=== PATIENT | male | born 1940 | race Hispanic/Latino ===

== ENCOUNTER 2018-03-22 09:44 | Inpatient (IN) | payer BC, MEDICARE ==
[2018-03-22 09:44] VITALS: BMI 36.9
[2018-03-22] MEDS ORDERED: Albuterol-Ipratrop 3 mg / 0.5 (3 ml) UD INH STA (10:18)
[2018-03-22] MEDS ORDERED: Albuterol-Ipratrop 3 mg / 0.5 (3 ml) UD IH STA ×2 (10:18→10:19)
--- NOTE | 2018-03-22 10:29 | ED PDOC ---
HPI: SOB/CHF/COPD Time Seen by Provider: 03/22/18 10:09 Chief Complaint (Nursing): Shortness Of Breath Chief Complaint (Provider): Dyspnea History Per: Patient History/Exam Limitations: no limitations Onset/Duration Of Symptoms: Days (3) Additional Complaint(s): Pt. with dyspnea, cough, nasal congestion, runny nose. No abd pain, leg pain. No fever. Seen by Dr. Crain and sent to the ER. No chest pain. Past Medical History Reviewed: Historical Data, Nursing Documentation, Vital Signs Vital Signs: Last Vital Signs Temp 98.9 F 03/22/18 10:13 Pulse 103 H 03/22/18 10:13 Resp 18 03/22/18 10:13 BP 148/75 03/22/18 10:13 Pulse Ox 93 L 03/22/18 10:13 - Medical History PMH: Anemia, Bronchitis, CAD, CHF, COPD, Diabetes, HTN, Hypercholesterolemia, Hypothyroidism, Peripheral Edema, Pneumonia Denies: HIV, Chronic Kidney Disease - Surgical History Surgical History: Coronary Stent - Family History Family History: States: Unknown Family Hx - Living Arrangements Living Arrangements: With Family - Home Medications Home Medications: Ambulatory Orders Medication Instructions Recorded Atorvastatin [Lipitor] 20 mg PO HS #0 tab 02/20/15 Levothyroxine [Synthroid] 175 mcg PO DAILY@0630 #0 tab 02/20/15 Albuterol HFA [Ventolin HFA 90 2 puff INH RQ4 PRN #0 inhaler 11/08/15 mcg/actuation (8 g)] Fluticasone/Salmeterol [Advair 1 puff IH BID #0 dsk 11/08/15 500-50 Diskus] GlipiZIDE [Glucotrol] 5 mg PO ACB #30 tab 06/18/16 MetFORMIN [glucoPHAGE] 1,000 mg PO BIDWM #30 tab 06/18/16 Thiamine [Vitamin B1 Tab] 100 mg PO DAILY #30 tab 06/18/16 amLODIPine [Norvasc] 5 mg PO DAILY #30 tab 06/18/16 Docusate [Colace] 100 mg PO BID 06/23/16 Folic Acid 1 mg PO DAILY 06/23/16 Insulin Detemir [Levemir] 14 unit SC HS 06/23/16 Insulin Human Regular [HumuLIN R] See Protocol SC ACHS 06/23/16 Pantoprazole Sodium [Protonix] 40 mg PO DAILY 06/23/16 Tiotropium [Spiriva] 18 mcg IH DAILY 06/23/16 Ferrous Sulfate [Feosol] 325 mg PO BID #60 tab 06/26/16 - Allergies Allergies/Adverse Reactions: Allergies Allergy/AdvReac Type Severity Reaction Status Date / Time No Known Allergies Allergy Verified 06/15/16 18:17 Review of Systems ROS Statement: Except As Marked, All Systems Reviewed And Found Negative ENT: Positive for: Nose Congestion Cardiovascular: Negative for: Chest Pain Respiratory: Positive for: Cough, Shortness of Breath Physical Exam - Reviewed Nursing Documentation Reviewed: Yes Vital Signs Reviewed: Yes - Physical Exam Appears: Positive for: Uncomfortable Head Exam: Positive for: ATRAUMATIC, NORMAL INSPECTION, NORMOCEPHALIC Skin: Positive for: Normal Color, Warm, DRY Eye Exam: Positive for: EOMI, Normal appearance, PERRL ENT: Positive for: Nasal Congestion. Negative for: Pharyngeal Erythema, Tonsillar Exudate Neck: Positive for: Normal, Painless ROM, Supple Cardiovascular/Chest: Positive for: Regular Rate, Rhythm Respiratory: Positive for: Decreased Breath Sounds, Wheezing (mild) Gastrointestinal/Abdominal: Positive for: Normal Exam, Soft. Negative for: Tenderness Back: Positive for: Normal Inspection. Negative for: L CVA Tenderness, R CVA Tenderness Extremity: Positive for: Normal ROM. Negative for: Tenderness, Pedal Edema Neurologic/Psych: Positive for: Alert, Oriented - Laboratory Results Result Diagrams: 03/22/18 10:30 03/22/18 10:30 Interpretation Of Abn Labs: pco2 50, bun 26, 11.5 wbc, 8.4 hg - ECG ECG: Positive for: Interpreted By Me, Viewed By Me ECG Rhythm: Positive for: Normal QRS, Sinus Rhythm, Nonspecific Changes (same as old) O2 Sat by Pulse Oximetry: 93 Pulse Ox Interpretation: Abnormal (improved with oxygen) - Radiology X-Ray: Read By Radiologist X-Ray Interpretation: Infiltrates (RLL) - Progress ED Course And Treament: 1312: Will need antibiotics. Will give mag to help wheezes. 1335: Spoke with Dr. Crain. Will admit and give further orders when pt. reaches floor. - Critical Care Total Time (In Min): 30 Documented Critical Care: Time excludes all time spent performint seperately billable procedures Disposition - Clinical Impression Clinical Impression: Pneumonia, Sepsis - Patient ED Disposition Is Patient to be Admitted: Yes Counseled Patient/Family Regarding: Studies Performed, Diagnosis - Disposition Disposition Time: 13:37 Condition: FAIR - Pt Status Changed To: Hospital Disposition Of: Inpatient - Admit Certification Admit to Inpatient:: After my assessment, the patient will require hospitalization for at least two midnights. This is because of the severity of symptoms shown, intensity of services needed, and/or the medical risk in this patient being treated as an outpatient. - POA Present On Arrival: None Core Measure Indicators: Pneumonia
[2018-03-22 10:41] LABS: ABG ALLEN TEST YES; ARTERIAL BLOOD GAS HCO3 25.1 mmol/L (21-28); ARTERIAL BLOOD GAS O2 SAT 98.6 % (95-98); ARTERIAL BLOOD GAS PCO2 50 mm/Hg (35-45); ARTERIAL BLOOD GAS PH 7.33 (7.35-7.45); ARTERIAL BLOOD GAS PO2 68 mm/Hg (80-100); ARTERIAL BLOOD GAS TCO2 27.9 mmol/L (22-28)
[2018-03-22 10:47] LABS: BASO # 0.1 K/uL (0.0-0.2); EOS # 0.1 K/uL (0.0-0.7); EOS % 1.1 % (0.0-4.0); HEMOGLOBIN 8.4 g/dL (12.0-18.0); LYMPH # 1.6 K/uL (1.0-4.3); LYMPH % 13.8 % (20.0-40.0); MEAN CELL VOLUME 87.1 fl (80.0-94.0); MEAN CORPUSCULAR HEMOGLOBIN 26.2 pg (27.0-31.0); MEAN CORPUSCULAR HGB CONC 30.1 g/dL (33.0-37.0); MEAN PLATELET VOLUME 10.4 fl (7.2-11.7); MONO # 0.8 K/uL (0.0-0.8); NEUT # 8.8 K/uL (1.8-7.0); NEUT % 77.1 % (50.0-75.0); NRBC % 0.2 % (0.0-0.0); RBC 3.19 Mil/uL (4.40-5.90); WHITE BLOOD COUNT 11.5 K/uL (4.8-10.8)
[2018-03-22 10:54] LABS: PROTHROMBIN TIME 11.3 Seconds (9.8-13.1)
[2018-03-22 10:57] LABS: PARTIAL THROMBOPLASTIN TIME 30.6 Seconds (25.6-37.1)
[2018-03-22 10:58] LABS: ALB/GLOB RATIO 1.2 (1.0-2.1); ALBUMIN 3.9 g/dL (3.5-5.0); ALT/SGPT 37 U/L (21-72); AST/SGOT 27 U/L (17-59); BLOOD UREA NITROGEN 26 mg/dl (9-20); GFR NON-AFRICAN AMERICAN 58
--- NOTE | 2018-03-22 11:03 | RAD ---
Date of service: 03/22/2018 HISTORY: Sepsis Patient COMPARISON: 06/23/2016 FINDINGS: LUNGS: Right basilar opacity concerning for pneumonia. PLEURA: No significant pleural effusion identified, no pneumothorax apparent. CARDIOVASCULAR: No aortic atherosclerotic calcification present. Normal cardiac size. No pulmonary vascular congestion. OSSEOUS STRUCTURES: No significant abnormalities. VISUALIZED UPPER ABDOMEN: Normal. OTHER FINDINGS: None. IMPRESSION: Right basilar opacity. Possible pneumonia. Follow-up advised.
[2018-03-22 11:17] LABS: B-TYPE NATRIURETIC PEPTIDE 304 pg/ml (0-900)
[2018-03-22] MEDS ORDERED: cefTRIAXone (Rocephin) 1 gm Inj IV ONE (13:10)
[2018-03-22] MEDS ORDERED: Azithromycin 500 MG in Sodium Chloride 0.9% 250 ML IVPB STA (14:16)
[2018-03-22] MEDS ORDERED: Azithromycin 500 MG IV IVPB ONE (14:22)
[2018-03-22] MEDS ORDERED: cefTRIAXone (Rocephin) 1 gm Inj ONE (14:23)
[2018-03-22] MEDS ORDERED: Albuterol-Ipratrop 3 mg / 0.5 (3 ml) UD INH PRN (14:51)
--- NOTE | 2018-03-22 15:13 | CP.PCM.HP ---
History of Present Illness - History of Present Illness History of Present Illness: 77 y/o male presented in ER with persistent dyspnea, orthopnea, mental status changes, SOB, fever, weakness for 2 days. An xray reveled an infiltrate. In ER: BUN greater than 19 DBP less than 60 Hypoxemia 68% (ABG) At times appears confuse He has significant comorbidities, severe coronary artery disease, CHF, severe peripheral vascular disease, COPD, uncontrolled DM2. He CURG 4 Will admit for pneumonia. Present on Admission - Present on Admission Any Indicators Present on Admission: No Review of Systems - Constitutional Constitutional: As Per HPI - EENT Eyes: As Per HPI - Cardiovascular Cardiovascular: Claudication, Dyspnea, Dyspnea on Exertion, Edema, Orthopnea, Palpitations, Pedal Edema - Respiratory Respiratory: Cough, Dyspnea, Dyspnea on Exertion, Wheezing, Snoring, Chest Congestion - Gastrointestinal Gastrointestinal: As Per HPI - Musculoskeletal Musculoskeletal: Abnormal Gait - Integumentary Integumentary: As Per HPI - Neurological Neurological: As Per HPI - Psychiatric Psychiatric: As Per HPI Past Patient History - Past Medical History & Family History Past Medical History?: Yes - Past Social History Smoking Status: Former Smoker - CARDIAC Hx Congestive Heart Failure: Yes Hx Hypercholesterolemia: Yes Hx Hypertension: Yes Hx Peripheral Edema: Yes - PULMONARY Hx Bronchitis: Yes Hx Chronic Obstructive Pulmonary Disease (COPD): Yes Hx Pneumonia: Yes - NEUROLOGICAL Hx Neurological Disorder: No - HEENT Hx HEENT Problems: No - RENAL Hx Chronic Kidney Disease: No - ENDOCRINE/METABOLIC Hx Hypothyroidism: Yes - HEMATOLOGICAL/ONCOLOGICAL Hx Anemia: Yes Hx Human Immunodeficiency Virus (HIV): No - INTEGUMENTARY Hx Dermatological Problems: No - MUSCULOSKELETAL/RHEUMATOLOGICAL Hx Falls: Yes - GASTROINTESTINAL Hx Gastrointestinal Disorders: No - GENITOURINARY/GYNECOLOGICAL Hx Genitourinary Disorders: No - PSYCHIATRIC Hx Psychophysiologic Disorder: No Hx Substance Use: No - SURGICAL HISTORY Hx Coronary Stent: Yes - ANESTHESIA Hx Anesthesia: Yes Hx Anesthesia Reactions: No Hx Malignant Hyperthermia: No Meds Allergies/Adverse Reactions: Allergies Allergy/AdvReac Type Severity Reaction Status Date / Time No Known Allergies Allergy Verified 06/15/16 18:17 Physical Exam - Constitutional Appears: In Acute Distress, Chronically Ill - Head Exam Head Exam: ATRAUMATIC, NORMAL INSPECTION, NORMOCEPHALIC - Eye Exam Eye Exam: Normal appearance - ENT Exam ENT Exam: Mucous Membranes Dry - Neck Exam Neck exam: Positive for: Full Rom - Respiratory Exam Respiratory Exam: Decreased Breath Sounds, Rhonchi, Wheezes - Cardiovascular Exam Cardiovascular Exam: REGULAR RHYTHM, +S1, +S2 - GI/Abdominal Exam GI & Abdominal Exam: Normal Bowel Sounds - Neurological Exam Neurological exam: Alert, CN II-XII Intact - Psychiatric Exam Psychiatric exam: Anxious - Skin Skin Exam: Pallor Results - Vital Signs Recent Vital Signs: Last Vital Signs Temp 97.7 F 03/22/18 14:27 Pulse 89 03/22/18 14:27 Resp 19 03/22/18 14:27 BP 140/75 03/22/18 14:27 Pulse Ox 97 03/22/18 14:27 - Labs Result Diagrams: 03/22/18 10:30 03/22/18 10:30 Labs: Laboratory Results - last 24 hr 03/22/18 03/22/18 03/22/18 10:22 10:30 10:30 WBC 11.5 H RBC 3.19 L Hgb 8.4 L Hct 27.8 L MCV 87.1 D MCH 26.2 L MCHC 30.1 L RDW 16.0 H Plt Count 198 MPV 10.4 Neut % (Auto) 77.1 H Lymph % (Auto) 13.8 L Lee % (Auto) 7.0 Eos % (Auto) 1.1 Baso % (Auto) 1.0 Neut # (Auto) 8.8 H Lymph # (Auto) 1.6 Lee # (Auto) 0.8 Eos # (Auto) 0.1 Baso # (Auto) 0.1 PT INR APTT pCO2 50 H pO2 68 L HCO3 25.1 ABG pH 7.33 L ABG Total CO2 27.9 ABG O2 Saturation 98.6 H ABG Base Excess 0.2 Kurtis Test Yes ABG Potassium 4.9 A-a O2 Difference 98.0 Sodium 141.0 143 Chloride 109.0 H 108 H Glucose 269 H Lactate 1.1 Vent Mode Nc FiO2 32.0 Potassium 4.9 Carbon Dioxide 25 Anion Gap 15 BUN 26 H Creatinine 1.2 Est GFR ( Amer) > 60 Est GFR (Non-Af Amer) 58 Random Glucose 258 H Calcium 9.0 Phosphorus 3.9 Magnesium 1.7 Total Bilirubin 0.2 AST 27 ALT 37 Alkaline Phosphatase 88 Troponin I 0.0330 NT-Pro-B Natriuret Pep 304 Total Protein 7.1 Albumin 3.9 Globulin 3.2 Albumin/Globulin Ratio 1.2 Arterial Blood Potassium 4.9 Influenza Typ A,B (EIA) 03/22/18 03/22/18 10:30 10:40 WBC RBC Hgb Hct MCV MCH MCHC RDW Plt Count MPV Neut % (Auto) Lymph % (Auto) Lee % (Auto) Eos % (Auto) Baso % (Auto) Neut # (Auto) Lymph # (Auto) Lee # (Auto) Eos # (Auto) Baso # (Auto) PT 11.3 INR 1.0 APTT 30.6 pCO2 pO2 HCO3 ABG pH ABG Total CO2 ABG O2 Saturation ABG Base Excess Kurtis Test ABG Potassium A-a O2 Difference Sodium Chloride Glucose Lactate Vent Mode FiO2 Potassium Carbon Dioxide Anion Gap BUN Creatinine Est GFR ( Amer) Est GFR (Non-Af Amer) Random Glucose Calcium Phosphorus Magnesium Total Bilirubin AST ALT Alkaline Phosphatase Troponin I NT-Pro-B Natriuret Pep Total Protein Albumin Globulin Albumin/Globulin Ratio Arterial Blood Potassium Influenza Typ A,B (EIA) Negative for flu a/b Assessment & Plan (1) Pneumonia Status: Acute (2) COPD with acute exacerbation Status: Acute Priority: High (3) Debility Status: Acute (4) Hypoxia Status: Acute Priority: High (5) Coronary arteriosclerosis Status: Chronic (6) Diabetes 1.5, managed as type 2 Status: Chronic (7) Hypertensive cardiomyopathy Status: Chronic (8) Delirium Status: Acute (9) Delirium Status: Acute - Assessment and Plan (Free Text) Plan: As per orders.
[2018-03-22] MEDS: Insulin Regular 100 units/ml SC SCH ×2 (17:33→22:19)
[2018-03-22] MEDS ORDERED: Insulin Regular 100 units/ml ONE (17:37)
[2018-03-22] MEDS: Omega-3-Acid Ethyl Esters 1 GM Cap PO SCH (17:39)
[2018-03-22] MEDS ORDERED: Insulin Detemir 100 Units/ml Inj SC STA (17:56)
[2018-03-22] MEDS ORDERED: Insulin Regular 100 units/ml SC STA (18:00)
--- NOTE | 2018-03-22 18:57 | CARD ---
APPROVED REPORT Date of service: 03/22/2018 EKG Measurement Heart [id number] CO [id number] <Conclusion> Sinus tachycardia ST & T wave abnormality, consider lateral ischemia Abnormal ECG
[2018-03-22] MEDS ORDERED: methylPREDNISolone 60 MG in Sodium Chloride 0.9% 50 ML IVPB SCH (21:00)
[2018-03-22] MEDS ORDERED: MethylPREDNISolone 40 mg Vial IV SCH (21:00)
[2018-03-22] MEDS: Insulin Detemir 100 Units/ml Inj SC SCH (21:04)
[2018-03-22] MEDS ORDERED: Insulin Detemir 100 Units/ml Inj SC SCH (22:00)
[2018-03-23] MEDS: Levothyroxine 175 MCG TAB PO SCH (06:22)
[2018-03-23] MEDS: Cholecalciferol 1,000 INTLU TAB PO SCH (08:31)
[2018-03-23] MEDS: Omega-3-Acid Ethyl Esters 1 GM Cap PO SCH ×2 (08:32→16:56)
[2018-03-23] MEDS: Enoxaparin 40 mg Syringe SC SCH (08:33)
[2018-03-23] MEDS: Insulin Regular 100 units/ml SC SCH ×4 (08:34→22:11)
[2018-03-23] MEDS: Azithromycin 500 MG in Sodium Chloride 0.9% 250 ML IVPB SCH (08:36)
[2018-03-23 08:50] LABS: BASO # 0.1 K/uL (0.0-0.2); BASO % 0.6 % (0.0-2.0); EOS % 0.1 % (0.0-4.0); LYMPH % 7.3 % (20.0-40.0); MEAN CELL VOLUME 87.2 fl (80.0-94.0); MEAN CORPUSCULAR HEMOGLOBIN 25.8 pg (27.0-31.0); MEAN CORPUSCULAR HGB CONC 29.6 g/dL (33.0-37.0); MEAN PLATELET VOLUME 10.5 fl (7.2-11.7); MONO # 0.7 K/uL (0.0-0.8); MONO % 5.1 % (0.0-10.0); NEUT # 12.4 K/uL (1.8-7.0); NEUT % 86.9 % (50.0-75.0); NRBC % 0.3 % (0.0-0.0); PLATELET COUNT 216 K/uL (130-400); RBC 3.12 Mil/uL (4.40-5.90); WHITE BLOOD COUNT 14.3 K/uL (4.8-10.8)
[2018-03-23 09:10] LABS: CALCIUM 9.2 mg/dL (8.4-10.2)
[2018-03-23 09:43] LABS: ANISOCYTOSIS SLIGHT; BANDS 1 % (0-2); HYPOCHROMIC MODERATE; LYMPHOCYTE 5 % (20-50); MONOCYTE 4 % (0-10); NEUTROPHIL 90 % (42-75); PLATELET ESTIMATE NORMAL (NORMAL); TOTAL CELLS COUNTED 100
[2018-03-23 09:45] LABS: PLATELET CLUMPS PRESENT
--- NOTE | 2018-03-23 10:43 | RAD ---
Date of service: 03/23/2018 HISTORY: pneumonia COMPARISON: 03/22/2018 TECHNIQUE: Chest PA and lateral FINDINGS: LUNGS: The prior right basal patchy opacity concerning for a potential patchy infiltrate here is less pronounced on the current study. Each medial infrahilar bronchovascular marking mild prominence/peribronchial thickening appearance is noted-chronicity similar to prior study no dense consolidation suggested. PLEURA: No significant pleural effusion identified. No pneumothorax apparent. CARDIOVASCULAR: No aortic atherosclerotic calcification present. Mild cardiomegaly-similar no pulmonary vascular congestion. OSSEOUS STRUCTURES: No significant abnormalities. VISUALIZED UPPER ABDOMEN: Normal. OTHER FINDINGS: None. IMPRESSION: No asymmetric patchy infiltrate right lung base currently appreciated. Each medial infrahilar bronchovascular marking region is slightly prominent and can relate to bronchial thickening-no change in the short interval time appreciated. However no significant change compared to the fixing carpenter image from the CT 2013 study noted. Continued clinical follow-up recommended. Some concomitant acute on chronic bronchiectasis here a bronchitis is a consideration.
[2018-03-23] MEDS ORDERED: Sod Polystyrene Sulf 15 gm/60 ml Susp PO ONE ×2 (11:26→17:51)
--- NOTE | 2018-03-23 11:26 | CP.PCM.CON ---
History of Present Illness - History of Present Illness History of Present Illness: This 78 year old male, former heavy cigarette smoker, presented to the emergency room with a 2 day history of fever, shortness of breath and productive cough. Blood work revealed leukocytosis, anemia, elevated PaCO2 and relative hypoxemia (done on supplemental oxygen) with respiratory acidosis. A chest x-ray showed patchy right lower lobe infiltrates, and together with the aforementioned it was decided to admit him to telemetry. He was given antibiotics, aerosol therapy and parenteral corticosteroids. When seen on consultation the following day he had already begun to feel improvement from admission. There was no complaint of c hest pain, no hemoptysis, but he reports that his sputum was a yellow color prior to presentation. Due to his comorbid diabetes his steroid dosing has been rapidly decreased. He was initially seen by me in 2014 when he was admitted to the intensive care unit with a similar presentation. He claims to have been compliant with his medical regimen at home. Past Patient History - Past Medical History & Family History Past Medical History?: Yes - Past Social History Smoking Status: Former Smoker Chewing Tobacco Use: No Cigar Use: No Alcohol: Social Drugs: Denies Home Situation {Lives}: With Family - CARDIAC Hx Congestive Heart Failure: Yes Hx Hypercholesterolemia: Yes Hx Hypertension: Yes Hx Peripheral Edema: Yes Hx Peripheral Vascular Disease: Yes - PULMONARY Hx Bronchitis: Yes Hx Chronic Obstructive Pulmonary Disease (COPD): Yes Hx Pneumonia: Yes - NEUROLOGICAL Hx Neurological Disorder: No - HEENT Hx HEENT Problems: No - RENAL Hx Chronic Kidney Disease: Yes - ENDOCRINE/METABOLIC Hx Diabetes Mellitus Type 2: Yes Hx Hypothyroidism: Yes - HEMATOLOGICAL/ONCOLOGICAL Hx Anemia: Yes Hx Human Immunodeficiency Virus (HIV): No - INTEGUMENTARY Hx Dermatological Problems: No - MUSCULOSKELETAL/RHEUMATOLOGICAL Hx Falls: Yes - GASTROINTESTINAL Hx Gastritis: Yes Other/Comment: colonic AVMs - GENITOURINARY/GYNECOLOGICAL Hx Prostate Cancer: Yes - PSYCHIATRIC Hx Psychophysiologic Disorder: No Hx Substance Use: No - SURGICAL HISTORY Hx Coronary Stent: Yes Hx Vascular Surgery: Yes Other/Comment: prostatectomy - ANESTHESIA Hx Anesthesia: Yes Hx Anesthesia Reactions: No Hx Malignant Hyperthermia: No Meds Allergies/Adverse Reactions: Allergies Allergy/AdvReac Type Severity Reaction Status Date / Time No Known Allergies Allergy Verified 06/15/16 18:17 - Medications Medications: Current Medications Albuterol/Ipratropium (Duoneb 3 Mg/0.5 Mg (3 Ml) Ud) 3 ml INH RQ6 PRN PRN Reason: Shortness of Breath Amlodipine Besylate (Norvasc) 5 mg PO DAILY [facility] Last Admin: 03/23/18 08:32 Dose: 5 mg Aspirin (Ecotrin) 81 mg PO DAILY [facility] Last Admin: 03/23/18 08:32 Dose: 81 mg Atorvastatin Calcium (Lipitor) 20 mg PO HS [facility] Last Admin: 03/22/18 21:06 Dose: 20 mg Cholecalciferol (Vitamin D) 5,000 intlu PO DAILY [facility] Last Admin: 03/23/18 08:31 Dose: 5,000 intlu Clopidogrel Bisulfate (Plavix) 75 mg PO DAILY [facility] Last Admin: 03/23/18 08:32 Dose: 75 mg Enoxaparin Sodium (Lovenox) 40 mg SC DAILY [facility]; Protocol Last Admin: 03/23/18 08:33 Dose: 40 mg Folic Acid (Folic Acid) 1 mg PO DAILY [facility] Last Admin: 03/23/18 08:32 Dose: 1 mg Glipizide (Glucotrol Xl) 10 mg PO DAILY [facility] Ceftriaxone Sodium 1 gm/ (Sodium Chloride) 100 mls @ 100 mls/hr IVPB DAILY [facility]; Protocol Last Admin: 03/23/18 08:37 Dose: 100 mls/hr Azithromycin 500 mg/ Sodium (Chloride) 250 mls @ 250 mls/hr IVPB DAILY [facility]; Protocol Last Admin: 03/23/18 08:36 Dose: 250 mls/hr Insulin Detemir (Levemir) 30 units SC [facility] Last Admin: 03/22/18 21:04 Dose: 30 units Insulin Human Regular (Humulin R) 0 units SC ACCU-CHECK [facility]; Protocol Last Admin: 03/23/18 08:34 Dose: 8 units Levothyroxine Sodium (Synthroid) 175 mcg PO DAILY@0630 [facility] Last Admin: 03/23/18 06:22 Dose: 175 mcg Qruvt-[id number] Ethyl Esters (Lovaza) 1 gm PO BID [facility] Last Admin: 03/23/18 08:32 Dose: 1 gm Thiamine HCl (Vitamin B1 Tab) 100 mg PO DAILY [facility] Last Admin: 03/23/18 08:31 Dose: 100 mg Physical Exam - Additional Findings Additional findings: Overweight male seated at the edge of the bed in no acute distress. Memory is intact her speech is fluent. Cooperative with exam. Trace dependent edema is noted in both lower extremities. No cyanosis. Healed surgical scars are noted in the left lower extremity. The pharynx is injected and mucous membranes are moist. No exudate. Neck is supple and trachea is midline. No cervical adenopathy. No neck vein distention or carotid bruit. No supraclavicular adenopathy. No dullness on chest percussion. No axillary adenopathy. Breath sounds are diminished bilaterally. Sonorous and sibilant rhonchi are heard in the lower lobes bilaterally. Dry basal rales posteriorly, no bronchial breath sounds or egophony. No rub. The heart is regular and heart sounds are very distant. No murmur heard. Abdomen is soft and nontender. Bowel sounds are normal. No CVA tenderness. Results - Vital Signs Recent Vital Signs: Last Vital Signs Temp 97.4 F L 03/23/18 08:05 Pulse 82 03/23/18 09:00 Resp 18 03/23/18 08:05 BP 160/64 H 03/23/18 08:05 Pulse Ox 95 03/23/18 08:05 - Labs Result Diagrams: 03/23/18 08:45 03/24/18 04:15 Labs: Laboratory Results - last 24 hr 03/22/18 03/22/18 03/22/18 16:19 16:19 17:28 WBC RBC Hgb Hct MCV MCH MCHC RDW Plt Count MPV Neut % (Auto) Lymph % (Auto) [place] % (Auto) Eos % (Auto) Baso % (Auto) Neut # (Auto) Lymph # (Auto) [place] # (Auto) Eos # (Auto) Baso # (Auto) Neutrophils % (Manual) Band Neutrophils % Lymphocytes % (Manual) Monocytes % (Manual) Platelet Estimate Plt Clumps, EDTA Hypochromasia (manual) Anisocytosis (manual) Sodium Potassium Chloride Carbon Dioxide Anion Gap BUN Creatinine Est GFR ( Amer) Est GFR (Non-Af Amer) POC Glucose (mg/dL) 475 H* Random Glucose Hemoglobin A1c 9.1 H Calcium TSH 3rd Generation 0.53 03/22/18 03/22/18 03/23/18 18:34 20:57 05:13 WBC RBC Hgb Hct MCV MCH MCHC RDW Plt Count MPV Neut % (Auto) Lymph % (Auto) [place] % (Auto) Eos % (Auto) Baso % (Auto) Neut # (Auto) Lymph # (Auto) [place] # (Auto) Eos # (Auto) Baso # (Auto) Neutrophils % (Manual) Band Neutrophils % Lymphocytes % (Manual) Monocytes % (Manual) Platelet Estimate Plt Clumps, EDTA Hypochromasia (manual) Anisocytosis (manual) Sodium Potassium Chloride Carbon Dioxide Anion Gap BUN Creatinine Est GFR ( Amer) Est GFR (Non-Af Amer) POC Glucose (mg/dL) 438 H* 455 H* 358 H Random Glucose Hemoglobin A1c Calcium TSH 3rd Generation 03/23/18 03/23/18 03/23/18 08:45 08:45 10:26 WBC 14.3 H RBC 3.12 L Hgb 8.0 L Hct 27.2 L MCV 87.2 MCH 25.8 L MCHC 29.6 L RDW 16.0 H Plt Count 216 MPV 10.5 Neut % (Auto) 86.9 H Lymph % (Auto) 7.3 L [place] % (Auto) 5.1 Eos % (Auto) 0.1 Baso % (Auto) 0.6 Neut # (Auto) 12.4 H Lymph # (Auto) 1.0 [place] # (Auto) 0.7 Eos # (Auto) 0.0 Baso # (Auto) 0.1 Neutrophils % (Manual) 90 H Band Neutrophils % 1 Lymphocytes % (Manual) 5 L Monocytes % (Manual) 4 Platelet Estimate Normal Plt Clumps, EDTA Present Hypochromasia (manual) Moderate Anisocytosis (manual) Slight Sodium 139 Potassium 5.9 H Chloride 106 Carbon Dioxide 24 Anion Gap 15 BUN 37 H Creatinine 1.7 H Est GFR ( Amer) 47 Est GFR (Non-Af Amer) 39 POC Glucose (mg/dL) 452 H* Random Glucose 377 H Hemoglobin A1c Calcium 9.2 TSH 3rd Generation Assessment & Plan (1) Pneumonia Status: Acute Priority: High (2) COPD exacerbation Status: Acute Priority: High (3) Hypoxia Status: Chronic Priority: High Comment: SpO2 88% on nasal O2 at 3 LPM. - Assessment and Plan (Free Text) Plan: Continue present aerosol and medical regimen. Monitor hyperglycemia secondary to recent treatment with corticosteroids. Repeat chest x-ray, PA and lateral. Once daily LABA/LAMA on discharge. - Date & Time Date: 03/23/18 Time: 11:25
[2018-03-23] MEDS: GlipiZIDE 10 mg SR Tab PO SCH (12:37)
--- NOTE | 2018-03-23 15:49 | PQF ---
PROVIDER RESPONSE TEXT: Shortness of breath, Accessory Muscle Use SpO2 88% on nasal O2 at 3 ABG ph:7.33 pCO2:50 PO2:68 HCO3:25.1 on FiO2 32.0 REVIEWER QUERY TEXT: Clarification of Clinical Diagnostic Findings Please clarify if there is an additional diagnosis to go along with the following documentation: H a nd P: includes: Constitutional Appears: In Acute Distress--Hypoxemia 68% (ABG) At times appears confu se: 03/22: @10:35; V/S record: Shortness of breath, Accessory Muscle Use, Nasal Flaring Pulmonary consult: diagnoses include: Hypoxia Status: Chronic Priority: High Comment: SpO2 88% on anselmo al O2 at 3 ABG ph:7.33 pCO2:50 PO2:68 HCO3:25.1 on FiO2 32.0 OR: Disagree Hand P: presented in ER with persistent dyspnea, orthopnea, mental status changes, SOB, fever, weakne ss for 2 days. An xray reveled an infiltrate. In ER: BUN greater than 19 DBP less than 60 Hypoxemia 68% (ABG) At times appears confuse He has significant comorbidities, severe coronary artery disease, CHF, severe peripheral vascular dis ease, COPD, uncontrolled DM2. ----Will admit for pneumonia---- Constitutional Appears: In Acute Distress Assess:(1) Pneumonia Status: Acute (2) COPD with acute exacerbation Status: Acute Priority: High (3) Debility Status: Acute (4) Hypoxia Status: Acute Priority: High (5) Coronary arteriosclerosis Status: Chronic (6) Diabetes 1.5, managed as type 2 Status: Chronic (7) Hypertensive cardiomyopathy Status: Chronic (8) Delirium Status: Acute The patient's Clinical Indicators include: -- Query created by: Pat Magallanes on 03/23/2018 1:34 PM Electronically signed by: Pérez Crain MD 03/23/2018 3:45 PM
--- NOTE | 2018-03-23 15:49 | PQF ---
PROVIDER RESPONSE TEXT: Diabetes with Hyperglycemia Diabetes with renal manifestation Diabetes with ophthalmic manifestation Diabetes with peripheral circulatory manifestation REVIEWER QUERY TEXT: Diabetic Associated Manifestations Please specify any manifestations associated / due to diabetes Such as: --Diabetes with Hyperglycemia -- Diabetes with renal manifestation -- Diabetes with neurologic manifestation -- Diabetes with ophthalmic manifestation -- Diabetes with peripheral circulatory manifestation -- Other, please specify Random Glucose:258->377 POC: 475->438->455->358->452->360 H and P includes: At times appears confuse He has significant comorbidities, severe coronary artery d isease, CHF, severe peripheral vascular disease, COPD, uncontrolled DM2. -Insulin The patient's Clinical Indicators include: -- Query created by: Pat Magallanes on 03/23/2018 1:46 PM Electronically signed by: Pérez Crain MD 03/23/2018 3:45 PM
--- NOTE | 2018-03-23 15:49 | PQF ---
PROVIDER RESPONSE TEXT: Ruled out REVIEWER QUERY TEXT: Conflicting Documentation Clarification A single mention of Sepsis appears in the record. Please also document if the condition is: -- Confirmed and current -- Confirmed, treated and resolved -- Ruled out -- Other, please specify Pulse;103->93->90->87->-----91->108->92 03/22: @10:35; V/S record: Shortness of breath, Accessory Muscle Use, Nasal Flaring ABG lactate:1.1 WBC:11.5->14.3 left shift Blood culture prelim: no growth after 24 hours ER: Clinical Impression: Pneumonia, Sepsis H and P: Respiratory: Cough, Dyspnea, Dyspnea on Exertion, Wheezing, Snoring, Chest Congestion Constitutional Appears: In Acute Distress presented in ER with persistent dyspnea, orthopnea, mental status changes, SOB, fever, weakness for 2 days. An x-ray reveled an infiltrate. In ER: BUN greater than 19 DBP less than 60 Hypoxemia 68% (ABG) At times appears confuse He has significant comorbidities, severe coronary artery disease, CHF, severe peripheral vascular dis ease, COPD, uncontrolled DM2. ----Will admit for pneumonia---- Assess:(1) Pneumonia Status: Acute (2) COPD with acute exacerbation Status: Acute Priority: High (3) Debility Status: Acute (4) Hypoxia Status: Acute Priority: High (5) Coronary arteriosclerosis Status: Chronic (6) Diabetes 1.5, managed as type 2 Status: Chronic (7) Hypertensive cardiomyopathy Status: Chronic (8) Delirium Status: Acute (2) COPD exacerbation Status: Acute Priority: High (3) Hypoxia Status: Chronic Priority: High Comment: SpO2 88% on nasal O2 at 3 LPMUpdate The patient's Clinical Indicators include: -- Query created by: Pat Magallanes on 03/23/2018 1:19 PM Electronically signed by: Pérez Crain MD 03/23/2018 3:45 PM
--- NOTE | 2018-03-23 15:55 | CP.PCM.PN ---
Subjective - Date & Time of Evaluation Date of Evaluation: 03/23/18 Time of Evaluation: 13:00 - Subjective Subjective: Patient improving on present rx AAOx3 Objective - Vital Signs/Intake and Output Vital Signs (last 24 hours): Temp Pulse Resp BP Pulse Ox 98.4 F 93 H 18 142/57 L 94 L 03/23/18 11:55 03/23/18 11:55 03/23/18 11:55 03/23/18 11:55 03/23/18 11:55 - Medications Medications: Current Medications Albuterol/Ipratropium (Duoneb 3 Mg/0.5 Mg (3 Ml) Ud) 3 ml INH RQ6 PRN PRN Reason: Shortness of Breath Amlodipine Besylate (Norvasc) 5 mg PO DAILY [facility] Last Admin: 03/23/18 08:32 Dose: 5 mg Aspirin (Ecotrin) 81 mg PO DAILY [facility] Last Admin: 03/23/18 08:32 Dose: 81 mg Atorvastatin Calcium (Lipitor) 20 mg PO [facility] Last Admin: 03/22/18 21:06 Dose: 20 mg Cholecalciferol (Vitamin D) 5,000 intlu PO DAILY [facility] Last Admin: 03/23/18 08:31 Dose: 5,000 intlu Clopidogrel Bisulfate (Plavix) 75 mg PO DAILY [facility] Last Admin: 03/23/18 08:32 Dose: 75 mg Enoxaparin Sodium (Lovenox) 40 mg SC DAILY [facility]; Protocol Last Admin: 03/23/18 08:33 Dose: 40 mg Folic Acid (Folic Acid) 1 mg PO DAILY [facility] Last Admin: 03/23/18 08:32 Dose: 1 mg Glipizide (Glucotrol Xl) 10 mg PO DAILY [facility] Last Admin: 03/23/18 12:37 Dose: 10 mg Ceftriaxone Sodium 1 gm/ (Sodium Chloride) 100 mls @ 100 mls/hr IVPB DAILY [facility]; Protocol Last Admin: 03/23/18 08:37 Dose: 100 mls/hr Azithromycin 500 mg/ Sodium (Chloride) 250 mls @ 250 mls/hr IVPB DAILY [facility]; Protocol Last Admin: 03/23/18 08:36 Dose: 250 mls/hr Insulin Detemir (Levemir) 30 units SC [facility] Last Admin: 03/22/18 21:04 Dose: 30 units Insulin Human Regular (Humulin R) 0 units SC [facility]U-[facility]; Protocol Last Admin: 03/23/18 12:39 Dose: 8 units Levothyroxine Sodium (Synthroid) 175 mcg PO DAILY@0630 [facility] Last Admin: 03/23/18 06:22 Dose: 175 mcg [id number] Ethyl Esters (Lovaza) 1 gm PO BID [facility] Last Admin: 03/23/18 08:32 Dose: 1 gm Thiamine HCl (Vitamin B1 Tab) 100 mg PO DAILY [facility] Last Admin: 03/23/18 08:31 Dose: 100 mg - Labs Labs: 03/23/18 08:45 03/23/18 08:45 PT 11.3 Seconds (9.8-13.1) 03/22/18 10:30 INR 1.0 03/22/18 10:30 APTT 30.6 Seconds (25.6-37.1) 03/22/18 10:30 - Constitutional Appears: Chronically Ill - Head Exam Head Exam: ATRAUMATIC, NORMAL INSPECTION, NORMOCEPHALIC - Eye Exam Eye Exam: Normal appearance - ENT Exam ENT Exam: Mucous Membranes Moist - Neck Exam Neck Exam: Full ROM - Respiratory Exam Respiratory Exam: Decreased Breath Sounds - Cardiovascular Exam Cardiovascular Exam: REGULAR RHYTHM, +S1, +S2 - GI/Abdominal Exam GI & Abdominal Exam: Normal Bowel Sounds - Extremities Exam Extremities Exam: Full ROM - Neurological Exam Neurological Exam: Alert, Awake, CN II-XII Intact, Oriented x3 - Psychiatric Exam Psychiatric exam: Normal Mood - Skin Skin Exam: Normal Color Assessment and Plan (1) Pneumonia Status: Acute (2) COPD with acute exacerbation Status: Acute (3) Debility Status: Acute (4) Hypoxia Status: Chronic (5) Coronary arteriosclerosis Status: Chronic (6) Diabetes 1.5, managed as type 2 Status: Chronic (7) Hypertensive cardiomyopathy Status: Chronic (8) Delirium Status: Acute (9) Delirium Status: Acute (10) Hyperkalemia Status: Acute
[2018-03-23] MEDS: Insulin Detemir 100 Units/ml Inj SC SCH (21:32)
[2018-03-24] MEDS: Levothyroxine 175 MCG TAB PO SCH (06:23)
[2018-03-24 06:26] LABS: ALB/GLOB RATIO 1.1 (1.0-2.1); ALBUMIN 3.2 g/dL (3.5-5.0); ALT/SGPT 57 U/L (21-72); AST/SGOT 43 U/L (17-59); BLOOD UREA NITROGEN 43 mg/dl (9-20); CALCIUM 8.8 mg/dL (8.4-10.2); GFR NON-AFRICAN AMERICAN 39
[2018-03-24] MEDS: GlipiZIDE 10 mg SR Tab PO SCH (08:12)
[2018-03-24] MEDS: Enoxaparin 40 mg Syringe SC SCH (08:13)
[2018-03-24] MEDS: Omega-3-Acid Ethyl Esters 1 GM Cap PO SCH ×2 (08:13→16:27)
[2018-03-24] MEDS: Sodium Chloride 0.9% 1,000 ML IV SCH (08:14)
[2018-03-24] MEDS: Cholecalciferol 1,000 INTLU TAB PO SCH (08:15)
[2018-03-24] MEDS: Insulin Regular 100 units/ml SC SCH ×4 (08:16→23:00)
--- NOTE | 2018-03-24 09:19 | CP.PCM.PN ---
Subjective - Date & Time of Evaluation Date of Evaluation: 03/24/18 Time of Evaluation: 09:19 - Subjective Subjective: Seated on the edge of the bed, appears comfortable at rest. SpO2 88-89% with nasal oxygen in place at 3 LPM. No complaints of SOB at rest, no chest pain. Says he was able to sleep well last night for the first time in a while. Pharynx is pink and MM are moist, no exudate. Neck is supple and trachea is midline, no visible JVD. No dullness on percussion of the chest wall. Breath sounds are very diminished equally in both lungs. Occasional dry rales are heard in the lower lobes bilaterally. No audible wheezing or bronchial breathing. Heart sounds are very distant and the rhythm regular ~ 90 BPM. Trace dependant edema noted without cyanosis. Needs continued antibiotics, aerosol therapy and supplemental O2. May need home oxygen as well, TBD. Should have overnight recorded oximetry when further improved. Should have formal polysomnography as an outpatient. Will request follow up CT chest w/o contrast (pleural based nodule and pleural calcification seen in 2016). Objective - Vital Signs/Intake and Output Vital Signs (last 24 hours): Temp Pulse Resp BP Pulse Ox 98 F 90 18 146/71 93 L 03/24/18 08:06 03/24/18 08:12 03/24/18 08:06 03/24/18 08:12 03/24/18 08:06 - Medications Medications: Current Medications Albuterol/Ipratropium (Duoneb 3 Mg/0.5 Mg (3 Ml) Ud) 3 ml INH RQ6 PRN PRN Reason: Shortness of Breath Amlodipine Besylate (Norvasc) 5 mg PO DAILY [facility] Last Admin: 03/24/18 08:12 Dose: 5 mg Aspirin (Ecotrin) 81 mg PO DAILY [facility] Last Admin: 03/24/18 08:12 Dose: 81 mg Atorvastatin Calcium (Lipitor) 20 mg PO HS [facility] Last Admin: 03/23/18 21:33 Dose: 20 mg Cholecalciferol (Vitamin D) 5,000 intlu PO DAILY [facility] Last Admin: 03/24/18 08:15 Dose: 5,000 intlu Clopidogrel Bisulfate (Plavix) 75 mg PO DAILY [facility] Last Admin: 03/24/18 08:13 Dose: 75 mg Enoxaparin Sodium (Lovenox) 40 mg SC DAILY [facility]; Protocol Last Admin: 03/24/18 08:13 Dose: 40 mg Folic Acid (Folic Acid) 1 mg PO DAILY [facility] Last Admin: 03/24/18 08:12 Dose: 1 mg Glipizide (Glucotrol Xl) 10 mg PO DAILY [facility] Last Admin: 03/24/18 08:12 Dose: 10 mg Ceftriaxone Sodium 1 gm/ (Sodium Chloride) 100 mls @ 100 mls/hr IVPB DAILY [facility]; Protocol Last Admin: 03/24/18 08:23 Dose: 100 mls/hr Azithromycin 500 mg/ Sodium (Chloride) 250 mls @ 250 mls/hr IVPB DAILY [facility]; Protocol Last Admin: 03/23/18 08:36 Dose: 250 mls/hr Sodium Chloride (Sodium Chloride 0.9%) 1,000 mls @ 75 mls/hr IV .[id number] [facility] Stop: 03/25/18 07:46 Last Admin: 03/24/18 08:14 Dose: 75 mls/hr Insulin Detemir (Levemir) 36 units SC [facility] Insulin Human Regular (Humulin R) 0 units SC ACCU-CHECK [facility]; Protocol Last Admin: 03/24/18 08:16 Dose: 3 units Levothyroxine Sodium (Synthroid) 175 mcg PO DAILY@0630 [facility] Last Admin: 03/24/18 06:23 Dose: 175 mcg [id number]-[id number] Ethyl Esters (Lovaza) 1 gm PO BID [facility] Last Admin: 03/24/18 08:13 Dose: 1 gm Thiamine HCl (Vitamin B1 Tab) 100 mg PO DAILY [facility] Last Admin: 03/24/18 08:13 Dose: 100 mg - Labs Labs: 03/23/18 08:45 03/24/18 04:15 PT 11.3 Seconds (9.8-13.1) 03/22/18 10:30 INR 1.0 03/22/18 10:30 APTT 30.6 Seconds (25.6-37.1) 03/22/18 10:30 Assessment and Plan (1) Pneumonia Status: Acute (2) COPD exacerbation Status: Acute (3) Hypoxia Status: Chronic
--- NOTE | 2018-03-24 11:14 | CP.PCM.PN ---
Subjective - Date & Time of Evaluation Date of Evaluation: 03/24/18 Time of Evaluation: 11:15 - Subjective Subjective: No new changes still dyspena on exortion O2 sat 88% on 3 l NC. Objective - Vital Signs/Intake and Output Vital Signs (last 24 hours): Temp Pulse Resp BP Pulse Ox 98 F 90 18 146/71 93 L 03/24/18 08:06 03/24/18 08:12 03/24/18 08:06 03/24/18 08:12 03/24/18 08:06 - Medications Medications: Current Medications Albuterol/Ipratropium (Duoneb 3 Mg/0.5 Mg (3 Ml) Ud) 3 ml INH RQ6 PRN PRN Reason: Shortness of Breath Amlodipine Besylate (Norvasc) 5 mg PO DAILY [facility] Last Admin: 03/24/18 08:12 Dose: 5 mg Aspirin (Ecotrin) 81 mg PO DAILY [facility] Last Admin: 03/24/18 08:12 Dose: 81 mg Atorvastatin Calcium (Lipitor) 20 mg PO HS [facility] Last Admin: 03/23/18 21:33 Dose: 20 mg Cholecalciferol (Vitamin D) 5,000 intlu PO DAILY [facility] Last Admin: 03/24/18 08:15 Dose: 5,000 intlu Clopidogrel Bisulfate (Plavix) 75 mg PO DAILY [facility] Last Admin: 03/24/18 08:13 Dose: 75 mg Enoxaparin Sodium (Lovenox) 40 mg SC DAILY [facility]; Protocol Last Admin: 03/24/18 08:13 Dose: 40 mg Folic Acid (Folic Acid) 1 mg PO DAILY [facility] Last Admin: 03/24/18 08:12 Dose: 1 mg Glipizide (Glucotrol Xl) 10 mg PO DAILY [facility] Last Admin: 03/24/18 08:12 Dose: 10 mg Ceftriaxone Sodium 1 gm/ (Sodium Chloride) 100 mls @ 100 mls/hr IVPB DAILY [facility]; Protocol Last Admin: 03/24/18 08:23 Dose: 100 mls/hr Azithromycin 500 mg/ Sodium (Chloride) 250 mls @ 250 mls/hr IVPB DAILY [facility]; Protocol Last Admin: 03/23/18 08:36 Dose: 250 mls/hr Sodium Chloride (Sodium Chloride 0.9%) 1,000 mls @ 75 mls/hr IV .[id number] [facility] Stop: 03/25/18 07:46 Last Admin: 03/24/18 08:14 Dose: 75 mls/hr Insulin Detemir (Levemir) 36 units SC [facility] Insulin Human Regular (Humulin R) 0 units SC ACCU-CHECK [facility]; Protocol Last Admin: 03/24/18 08:16 Dose: 3 units Levothyroxine Sodium (Synthroid) 175 mcg PO DAILY@0630 [facility] Last Admin: 03/24/18 06:23 Dose: 175 mcg [id number]-4-[id number] Ethyl Esters (Lovaza) 1 gm PO BID [facility] Last Admin: 03/24/18 08:13 Dose: 1 gm Thiamine HCl (Vitamin B1 Tab) 100 mg PO DAILY [facility] Last Admin: 03/24/18 08:13 Dose: 100 mg - Labs Labs: 03/23/18 08:45 03/24/18 04:15 PT 11.3 Seconds (9.8-13.1) 03/22/18 10:30 INR 1.0 03/22/18 10:30 APTT 30.6 Seconds (25.6-37.1) 03/22/18 10:30 - Constitutional Appears: Chronically Ill - Head Exam Head Exam: ATRAUMATIC, NORMAL INSPECTION, NORMOCEPHALIC - Eye Exam Eye Exam: Normal appearance - Neck Exam Neck Exam: Full ROM - Respiratory Exam Respiratory Exam: Decreased Breath Sounds - Cardiovascular Exam Cardiovascular Exam: REGULAR RHYTHM, +S1, +S2 - GI/Abdominal Exam GI & Abdominal Exam: Normal Bowel Sounds - Extremities Exam Extremities Exam: Normal Inspection - Neurological Exam Neurological Exam: Alert, Awake, Oriented x3 - Psychiatric Exam Psychiatric exam: Normal Affect - Skin Skin Exam: Pallor Assessment and Plan (1) Pneumonia Status: Acute (2) COPD with acute exacerbation Status: Acute (3) Debility Status: Acute (4) Hypoxia Status: Chronic (5) Coronary arteriosclerosis Status: Chronic (6) Diabetes 1.5, managed as type 2 Status: Chronic (7) Hypertensive cardiomyopathy Status: Chronic (8) Delirium Status: Acute (9) Delirium Status: Acute (10) Hyperkalemia Status: Acute (11) Renal failure Status: Acute (12) Renal failure, acute Status: Acute - Assessment and Plan (Free Text) Plan: Continue present rx Continue antibx rx x 7 days
[2018-03-24] MEDS: Azithromycin 500 MG in Sodium Chloride 0.9% 250 ML IVPB SCH (11:32)
--- NOTE | 2018-03-24 12:46 | CT ---
Date of service: 03/24/2018 PROCEDURE: CT Chest without contrast HISTORY: pleural based nodule RUL COMPARISON: Comparison is made to the previous study dated 11/06/2015 TECHNIQUE: Contiguous axial images were obtained through the chest without intravenous contrast enhancement. Sagittal and coronal reconstructions were performed. Radiation dose: Total exam DLP = 599.9 mGy-cm. This CT exam was performed using one or more of the following dose reduction techniques: Automated exposure control, adjustment of the mA and/or kV according to patient size, and/or use of iterative reconstruction technique. FINDINGS: LUNGS: Moderate diffuse emphysematous changes are again noted more prominent in the upper lobes and appear worse compared to the previous exam. There is a linear shape opacity at the lingula likely represents scar tissue or atelectasis. Again seen is pleural base nodule in inferior aspect of the right lung upper lobe. There is also stable opacity at the anterior aspect of the right middle lobe. There is a left lung base atelectasis associated with trace/small pleural effusion. MEDIASTINUM: Unremarkable thoracic aorta. No aneurysm. The heart is mildly enlarged. Main pulmonary arteries are mildly enlarged. No lymphadenopathy. Mild to moderate aortic atherosclerotic calcification. PLEURA: Trace bilateral pleural effusions are noted. BONES: No fracture. No destructive lesion. UPPER ABDOMEN: Grossly unremarkable. OTHER FINDINGS: None. IMPRESSION: Moderate emphysematous changes. Stable pleural base nodules and opacity at the right upper and middle lungs. Trace bilateral pleural effusion. Opacities at the left lingula and left lung base likely atelectasis.
--- NOTE | 2018-03-24 17:36 | CP.PCM.CON ---
History of Present Illness - History of Present Illness History of Present Illness: patient seen examined. Coverage for Dr matias. cardiac status appears stable at present. will continue mgmt for pneumonia. Past Patient History - Past Medical History & Family History Past Medical History?: Yes - Past Social History Smoking Status: Former Smoker Chewing Tobacco Use: No Cigar Use: No Alcohol: Social Drugs: Denies Home Situation {Lives}: With Family - CARDIAC Hx Congestive Heart Failure: Yes Hx Hypercholesterolemia: Yes Hx Hypertension: Yes Hx Peripheral Edema: Yes Hx Peripheral Vascular Disease: Yes - PULMONARY Hx Bronchitis: Yes Hx Chronic Obstructive Pulmonary Disease (COPD): Yes Hx Pneumonia: Yes - NEUROLOGICAL Hx Neurological Disorder: No - HEENT Hx HEENT Problems: No - RENAL Hx Chronic Kidney Disease: Yes - ENDOCRINE/METABOLIC Hx Diabetes Mellitus Type 2: Yes Hx Hypothyroidism: Yes - HEMATOLOGICAL/ONCOLOGICAL Hx Anemia: Yes Hx Human Immunodeficiency Virus (HIV): No - INTEGUMENTARY Hx Dermatological Problems: No - MUSCULOSKELETAL/RHEUMATOLOGICAL Hx Falls: Yes - GASTROINTESTINAL Hx Gastritis: Yes Other/Comment: colonic AVMs - GENITOURINARY/GYNECOLOGICAL Hx Prostate Cancer: Yes - PSYCHIATRIC Hx Psychophysiologic Disorder: No Hx Substance Use: No - SURGICAL HISTORY Hx Coronary Stent: Yes Hx Vascular Surgery: Yes Other/Comment: prostatectomy - ANESTHESIA Hx Anesthesia: Yes Hx Anesthesia Reactions: No Hx Malignant Hyperthermia: No Meds Allergies/Adverse Reactions: Allergies Allergy/AdvReac Type Severity Reaction Status Date / Time No Known Allergies Allergy Verified 06/15/16 18:17 - Medications Medications: Current Medications Albuterol/Ipratropium (Duoneb 3 Mg/0.5 Mg (3 Ml) Ud) 3 ml INH RQ6 PRN PRN Reason: Shortness of Breath Amlodipine Besylate (Norvasc) 5 mg PO DAILY [facility] Last Admin: 03/24/18 08:12 Dose: 5 mg Aspirin (Ecotrin) 81 mg PO DAILY [facility] Last Admin: 03/24/18 08:12 Dose: 81 mg Atorvastatin Calcium (Lipitor) 20 mg PO HS [facility] Last Admin: 03/23/18 21:33 Dose: 20 mg Cholecalciferol (Vitamin D) 5,000 intlu PO DAILY [facility] Last Admin: 03/24/18 08:15 Dose: 5,000 intlu Clopidogrel Bisulfate (Plavix) 75 mg PO DAILY [facility] Last Admin: 03/24/18 08:13 Dose: 75 mg Enoxaparin Sodium (Lovenox) 40 mg SC DAILY [facility]; Protocol Last Admin: 03/24/18 08:13 Dose: 40 mg Folic Acid (Folic Acid) 1 mg PO DAILY [facility] Last Admin: 03/24/18 08:12 Dose: 1 mg Glipizide (Glucotrol Xl) 10 mg PO DAILY [facility] Last Admin: 03/24/18 08:12 Dose: 10 mg Ceftriaxone Sodium 1 gm/ (Sodium Chloride) 100 mls @ 100 mls/hr IVPB DAILY [facility]; Protocol Last Admin: 03/24/18 08:23 Dose: 100 mls/hr Azithromycin 500 mg/ Sodium (Chloride) 250 mls @ 250 mls/hr IVPB DAILY [facility]; Protocol Last Admin: 03/24/18 11:32 Dose: 250 mls/hr Sodium Chloride (Sodium Chloride 0.9%) 1,000 mls @ 75 mls/hr IV .[id number] [facility] Stop: 03/25/18 07:46 Last Admin: 03/24/18 08:14 Dose: 75 mls/hr Insulin Detemir (Levemir) 36 units SC [facility] Insulin Human Regular (Humulin R) 0 units SC ACCU-CHECK [facility]; Protocol Last Admin: 03/24/18 16:25 Dose: 4 units Levothyroxine Sodium (Synthroid) 175 mcg PO DAILY@0630 [facility] Last Admin: 03/24/18 06:23 Dose: 175 mcg [id number]-[id number] Ethyl Esters (Lovaza) 1 gm PO BID [facility] Last Admin: 03/24/18 16:27 Dose: 1 gm Thiamine HCl (Vitamin B1 Tab) 100 mg PO DAILY [facility] Last Admin: 03/24/18 08:13 Dose: 100 mg Results - Vital Signs Recent Vital Signs: Last Vital Signs Temp 98.0 F 03/24/18 15:36 Pulse 84 03/24/18 15:36 Resp 17 03/24/18 15:36 BP 146/69 03/24/18 15:36 Pulse Ox 94 L 03/24/18 15:36 - Labs Result Diagrams: 03/23/18 08:45 03/24/18 04:15 Labs: Laboratory Results - last 24 hr 03/23/18 03/23/18 03/24/18 16:23 21:29 04:15 Sodium 139 143 Potassium 5.4 H 4.7 Chloride 106 108 H Carbon Dioxide 25 30 Anion Gap 13 10 BUN 41 H 43 H Creatinine 1.7 H 1.7 H Est GFR ( Amer) 47 47 Est GFR (Non-Af Amer) 39 39 POC Glucose (mg/dL) 356 H Random Glucose 346 H 250 H Calcium 9.0 8.8 Phosphorus 4.3 Magnesium 2.1 Total Bilirubin < 0.1 L AST 43 ALT 57 Alkaline Phosphatase 80 Total Protein 6.3 Albumin 3.2 L Globulin 3.0 Albumin/Globulin Ratio 1.1 03/24/18 03/24/18 03/24/18 05:03 11:11 15:45 Sodium Potassium Chloride Carbon Dioxide Anion Gap BUN Creatinine Est GFR ( Amer) Est GFR (Non-Af Amer) POC Glucose (mg/dL) 228 H 245 H 264 H Random Glucose Calcium Phosphorus Magnesium Total Bilirubin AST ALT Alkaline Phosphatase Total Protein Albumin Globulin Albumin/Globulin Ratio
--- NOTE | 2018-03-24 17:36 | CP.PCM.CON ---
History of Present Illness - History of Present Illness History of Present Illness: COVERAGE FOR DR SLAUGHTER I was asked to see patient by Dr Slaughter patient seen 03/24/18 [id number] Patient is a 78 year old male with HTN hypercholeterolemia and PAD who was admitted for progressive dyspnea. He has a longstanding smokiung history and reports progressive dyspnea and cough. he is admitted for pneumonia. There is no current chest pain. Review of Systems - Constitutional Constitutional: absent: As Per HPI, Anorexia, Chills, Daytime Sleepiness, Excessive Sweating, Fatigue, Fever, Frequent Falls, Headache, Increased Appetite, Lethargy, Malaise, Night Sweats, Snoring, Sleep Apnea, Weight Gain, Weight Loss, Weakness, Other - EENT Eyes: absent: As Per HPI, Blind Spots, Blurred Vision, Change in Vision, Decreased Night Vision, Diplopia, Discharge, Dry Eye, Exophthalmos, Floaters, Irritation, Itchy Eyes, Loss of Peripheral Vision, Pain, Photophobia, Requires Corrective Lenses, Sees Flashes, Spots in Vision, Tunnel Vision, Other Visual Disturbances, Loss of Vision, Other Ears: absent: As Per HPI, Decreased Hearing, Ear Discharge, Ear Pain, Tinnitus, Abnormal Hearing, Disequilibrium, Dizziness, Other Nose/Mouth/Throat: absent: As Per HPI, Epistaxis, Nasal Congestion, Nasal Discharge, Nasal Obstruction, Nasal Trauma, Nose Pain, Post Nasal Drip, Sinus Pain, Sinus Pressure, Bleeding Gums, Change in Voice, Dental Pain, Dry Mouth, Dysphagia, Halitosis, Hoarsness, Lip Swelling, Mouth Lesions, Mouth Pain, Odynophagia, Sore Throat, Throat Swelling, Tongue Swelling, Facial Pain, Neck Pain, Neck Mass, Other - Cardiovascular Cardiovascular: absent: As Per HPI, Acrocyanosis, Chest Pain, Chest Pain at Rest, Chest Pain with Activity, Claudication, Diaphoresis, Dyspnea, Dyspnea on Exertion, Edema, Irregular Heart Rhythm, Pain Radiating to Arm/Neck/Jaw, Leg Edema, Leg Ulcers, Lightheadedness, Orthopnea, Palpitations, Paroxysmal Nocturnal Dyspnea, Pedal Edema, Radiating Pain, Rapid Heart Rate, Slow Heart Rate, Syncope, Other - Respiratory Respiratory: Cough, Dyspnea - Gastrointestinal Gastrointestinal: absent: As Per HPI, Abdominal Pain, Belching, Bloating, Change in Bowel Habits, Change in Stool Character, Coffee Ground Emesis, Constipation, Cramping, Diarrhea, Dyspepsia, Dysphagia, Early Satiety, Excessive Flatus, Fecal Incontinence, Heartburn, Hematemesis, Hematochezia, Loose Stools, Melena, Nausea, Odynophagia, Temesmus, Vomiting, Other - Genitourinary Genitourinary: absent: As Per HPI, Change in Urinary Stream, Difficulty Urinating, Dysuria, Flank Pain, Hematuria, Pyuria, Nocturia, Urinary Incontinence, Urinary Frequency, Urinary Hesitance, Urinary Urgency, Voiding Freq/Small Amts, Freq UTI, Hx Renal/Bladder Calculi, Hx /Renal Surgery, Bladder Distension, Other - Musculoskeletal Musculoskeletal: absent: As Per HPI, Abnormal Gait, Arthralgias, Atrophy, Back Pain, Deformity, Joint Swelling, Limited Range of Motion, Loss of Height, Muscle Cramps, Muscle Weakness, Myalgias, Neck Pain, Numbness, Radiating Pain into Limb, Stiffness, Tingling, Other - Integumentary Integumentary: absent: As Per HPI, Acne, Alopecia, Bleeding Lesions, Change in Hair, Change in Nails, Change in Pigmentation, Changing Lesions, Dry Skin, Erythema, Furuncle, Hirsutism, Lesions, New Lesions, Non-Healing Lesions, Photosensitivity, Pruritus, Rash, Skin Pain, Skin Ulcer, Sores, Striae, Swelling, Unusual Bruising, Wounds, Jaundice, Other - Neurological Neurological: absent: As Per HPI, Abnormal Gait, Abnormal Hearing, Abnormal Movements, Abnormal Speech, Behavioral Changes, Burning Sensations, Confusion, Convulsions, Disequilibrium, Dizziness, Numbness, Focal Weakness, Frequent Falls , Headaches, Lack of Coordination, Loss of Vision, Memory Loss, Paresthesias, Radicular Pain, Restless Legs, Sensory Deficit, Syncope, Tingling, Tremor, Vertigo, Weakness, Other Visual Disturbances, Other - Psychiatric Psychiatric: absent: As Per HPI, Abnormal Sleep Pattern, Anhedonia, Anxiety, Auditory Hallucinations, Behavioral Changes, Change in Appetite, Change in Libido, Confusion, Depression, Difficulty Concentrating, Hallucinations, Homicidal Ideation, Hopelessness, Irritability, Memory Loss, Mood Swings, Panic Attacks, Paranoia, Suicidal Ideation, Visual Hallucinations, Tactile Hallucinations, Other - Endocrine Endocrine: absent: As Per HPI, Change in Body Appearance, Change in Libido, Cold Intolorance, Deepening of Voice, Excessive Sweating, Fatigue, Flushing, Heat Intolorance, Increase in Ring/Shoe/Hat Size, Palpitations, Polydipsia, Polyphagia, Polyuria, Other - Hematologic/Lymphatic Hematologic: absent: As Per HPI, Easy Bleeding, Easy Bruising, Lymphadenopathy, Other Past Patient History - Past Medical History & Family History Past Medical History?: Yes - Past Social History Smoking Status: Former Smoker Chewing Tobacco Use: No Cigar Use: No Alcohol: Social Drugs: Denies Home Situation {Lives}: With Family - CARDIAC Hx Congestive Heart Failure: Yes Hx Hypercholesterolemia: Yes Hx Hypertension: Yes Hx Peripheral Edema: Yes Hx Peripheral Vascular Disease: Yes - PULMONARY Hx Bronchitis: Yes Hx Chronic Obstructive Pulmonary Disease (COPD): Yes Hx Pneumonia: Yes - NEUROLOGICAL Hx Neurological Disorder: No - HEENT Hx HEENT Problems: No - RENAL Hx Chronic Kidney Disease: Yes - ENDOCRINE/METABOLIC Hx Diabetes Mellitus Type 2: Yes Hx Hypothyroidism: Yes - HEMATOLOGICAL/ONCOLOGICAL Hx Anemia: Yes Hx Human Immunodeficiency Virus (HIV): No - INTEGUMENTARY Hx Dermatological Problems: No - MUSCULOSKELETAL/RHEUMATOLOGICAL Hx Falls: Yes - GASTROINTESTINAL Hx Gastritis: Yes Other/Comment: colonic AVMs - GENITOURINARY/GYNECOLOGICAL Hx Prostate Cancer: Yes - PSYCHIATRIC Hx Psychophysiologic Disorder: No Hx Substance Use: No - SURGICAL HISTORY Hx Coronary Stent: Yes Hx Vascular Surgery: Yes Other/Comment: prostatectomy - ANESTHESIA Hx Anesthesia: Yes Hx Anesthesia Reactions: No Hx Malignant Hyperthermia: No Meds Home Medications: Home Medication List Medication Instructions Recorded Confirmed Type Albuterol/Ipratropium [Duoneb 3 3 ml INH RQ6 PRN neb 03/25/18 Rx mg/0.5 mg (3 ml) UD] Azithromycin [Zithomax 500mg IV] 500 mg IVPB DAILY 7 Days #7 pds 03/25/18 Rx Enoxaparin [Lovenox] 40 mg SC DAILY syr 03/25/18 Rx GlipiZIDE SR [Glucotrol XL] 10 mg PO DAILY tab 03/25/18 Rx Insulin Detemir [Levemir] 36 units SC HS vial 03/25/18 Rx Insulin Human Regular [HumuLIN R] 0 units SC ACCU-CHECK ml 03/25/18 Rx cefTRIAXone 1 gm [Rocephin 1 gram 1 gm IVPB DAILY 7 Days #7 bag 03/25/18 Rx IVPB] Allergies/Adverse Reactions: Allergies Allergy/AdvReac Type Severity Reaction Status Date / Time No Known Allergies Allergy Verified 03/25/18 17:37 - Medications Medications: Current Medications Albuterol/Ipratropium (Duoneb 3 Mg/0.5 Mg (3 Ml) Ud) 3 ml INH RQ6 PRN PRN Reason: Shortness of Breath Amlodipine Besylate (Norvasc) 5 mg PO DAILY [facility] Last Admin: 03/24/18 08:12 Dose: 5 mg Aspirin (Ecotrin) 81 mg PO DAILY [facility] Last Admin: 03/24/18 08:12 Dose: 81 mg Atorvastatin Calcium (Lipitor) 20 mg PO HS [facility] Last Admin: 03/23/18 21:33 Dose: 20 mg Cholecalciferol (Vitamin D) 5,000 intlu PO DAILY [facility] Last Admin: 03/24/18 08:15 Dose: 5,000 intlu Clopidogrel Bisulfate (Plavix) 75 mg PO DAILY [facility] Last Admin: 03/24/18 08:13 Dose: 75 mg Enoxaparin Sodium (Lovenox) 40 mg SC DAILY [facility]; Protocol Last Admin: 03/24/18 08:13 Dose: 40 mg Folic Acid (Folic Acid) 1 mg PO DAILY [facility] Last Admin: 03/24/18 08:12 Dose: 1 mg Glipizide (Glucotrol Xl) 10 mg PO DAILY [facility] Last Admin: 03/24/18 08:12 Dose: 10 mg Ceftriaxone Sodium 1 gm/ (Sodium Chloride) 100 mls @ 100 mls/hr IVPB DAILY [facility]; Protocol Last Admin: 03/24/18 08:23 Dose: 100 mls/hr Azithromycin 500 mg/ Sodium (Chloride) 250 mls @ 250 mls/hr IVPB DAILY [facility]; Protocol Last Admin: 03/24/18 11:32 Dose: 250 mls/hr Sodium Chloride (Sodium Chloride 0.9%) 1,000 mls @ 75 mls/hr IV .[id number] [facility] Stop: 03/25/18 07:46 Last Admin: 03/24/18 08:14 Dose: 75 mls/hr Insulin Detemir (Levemir) 36 units SC HS [facility] Insulin Human Regular (Humulin R) 0 units SC ACCU-CHECK [facility]; Protocol Last Admin: 03/24/18 16:25 Dose: 4 units Levothyroxine Sodium (Synthroid) 175 mcg PO DAILY@0630 [facility] Last Admin: 03/24/18 06:23 Dose: 175 mcg Mzfau-[id number] Ethyl Esters (Lovaza) 1 gm PO BID [facility] Last Admin: 03/24/18 16:27 Dose: 1 gm Thiamine HCl (Vitamin B1 Tab) 100 mg PO DAILY [facility] Last Admin: 03/24/18 08:13 Dose: 100 mg Physical Exam - Constitutional Appears: Non-toxic - Head Exam Head Exam: NORMAL INSPECTION - Eye Exam Eye Exam: Normal appearance - ENT Exam ENT Exam: Mucous Membranes Moist - Neck Exam Neck exam: Positive for: Full Rom - Respiratory Exam Respiratory Exam: Decreased Breath Sounds - Cardiovascular Exam Cardiovascular Exam: REGULAR RHYTHM - GI/Abdominal Exam GI & Abdominal Exam: Normal Bowel Sounds - Rectal Exam Rectal Exam: Deferred - Extremities Exam Extremities exam: Positive for: normal inspection. Negative for: pedal edema - Back Exam Back exam: NORMAL INSPECTION - Neurological Exam Neurological exam: Alert, Oriented x3 - Psychiatric Exam Psychiatric exam: Normal Affect, Normal Mood - Skin Skin Exam: Normal Color, Warm Results - Vital Signs Recent Vital Signs: Last Vital Signs Temp 98.0 F 03/24/18 15:36 Pulse 84 03/24/18 15:36 Resp 17 03/24/18 15:36 BP 146/69 03/24/18 15:36 Pulse Ox 94 L 03/24/18 15:36 - Labs Result Diagrams: 03/23/18 08:45 03/25/18 10:36 Labs: Laboratory Results - last 24 hr 03/23/18 03/23/18 03/24/18 16:23 21:29 04:15 Sodium 139 143 Potassium 5.4 H 4.7 Chloride 106 108 H Carbon Dioxide 25 30 Anion Gap 13 10 BUN 41 H 43 H Creatinine 1.7 H 1.7 H Est GFR ( Amer) 47 47 Est GFR (Non-Af Amer) 39 39 POC Glucose (mg/dL) 356 H Random Glucose 346 H 250 H Calcium 9.0 8.8 Phosphorus 4.3 Magnesium 2.1 Total Bilirubin < 0.1 L AST 43 ALT 57 Alkaline Phosphatase 80 Total Protein 6.3 Albumin 3.2 L Globulin 3.0 Albumin/Globulin Ratio 1.1 03/24/18 03/24/18 03/24/18 05:03 11:11 15:45 Sodium Potassium Chloride Carbon Dioxide Anion Gap BUN Creatinine Est GFR ( Amer) Est GFR (Non-Af Amer) POC Glucose (mg/dL) 228 H 245 H 264 H Random Glucose Calcium Phosphorus Magnesium Total Bilirubin AST ALT Alkaline Phosphatase Total Protein Albumin Globulin Albumin/Globulin Ratio - EKG Data EKG Interpreted by: Myself Assessment & Plan (1) Atrial fibrillation Assessment and Plan: patient has previous hsitory of atrial fibrillation, but curremntly is in sinus rhythm. recommend medical therapy and blood pressure control. I discussed the importance of medical therapy and blood pressure control. not on anticoagulation diue to previous GI bleed. Status: Acute (2) Coronary arteriosclerosis Assessment and Plan: no current angina medical therapy Status: Chronic
[2018-03-24] MEDS ORDERED: Insulin Detemir 100 Units/ml Inj SC SCH (22:00)
[2018-03-25] MEDS: Sodium Chloride 0.9% 1,000 ML IV SCH (03:31)
[2018-03-25] MEDS: Levothyroxine 175 MCG TAB PO SCH (06:19)
--- NOTE | 2018-03-25 07:39 | CP.PCM.PN ---
Subjective - Date & Time of Evaluation Date of Evaluation: 03/25/18 Time of Evaluation: 07:00 - Subjective Subjective: no current chest pain or dsypnea. less cough Objective - Vital Signs/Intake and Output Vital Signs (last 24 hours): Temp Pulse Resp BP Pulse Ox 98.5 F 79 16 149/68 92 L 03/25/18 04:12 03/25/18 04:12 03/25/18 04:12 03/25/18 04:12 03/25/18 04:12 Intake and Output: 03/25/18 03/25/18 06:59 18:59 Intake Total 900 Output Total 500 Balance 400 - Medications Medications: Current Medications Albuterol/Ipratropium (Duoneb 3 Mg/0.5 Mg (3 Ml) Ud) 3 ml INH RQ6 PRN PRN Reason: Shortness of Breath Amlodipine Besylate (Norvasc) 5 mg PO DAILY [facility] Last Admin: 03/24/18 08:12 Dose: 5 mg Aspirin (Ecotrin) 81 mg PO DAILY [facility] Last Admin: 03/24/18 08:12 Dose: 81 mg Atorvastatin Calcium (Lipitor) 20 mg PO HS [facility] Last Admin: 03/24/18 21:25 Dose: 20 mg Cholecalciferol (Vitamin D) 5,000 intlu PO DAILY [facility] Last Admin: 03/24/18 08:15 Dose: 5,000 intlu Clopidogrel Bisulfate (Plavix) 75 mg PO DAILY [facility] Last Admin: 03/24/18 08:13 Dose: 75 mg Enoxaparin Sodium (Lovenox) 40 mg SC DAILY [facility]; Protocol Last Admin: 03/24/18 08:13 Dose: 40 mg Folic Acid (Folic Acid) 1 mg PO DAILY [facility] Last Admin: 03/24/18 08:12 Dose: 1 mg Glipizide (Glucotrol Xl) 10 mg PO DAILY [facility] Last Admin: 03/24/18 08:12 Dose: 10 mg Ceftriaxone Sodium 1 gm/ (Sodium Chloride) 100 mls @ 100 mls/hr IVPB DAILY [facility]; Protocol Last Admin: 03/24/18 08:23 Dose: 100 mls/hr Azithromycin 500 mg/ Sodium (Chloride) 250 mls @ 250 mls/hr IVPB DAILY [facility]; Protocol Last Admin: 03/24/18 11:32 Dose: 250 mls/hr Sodium Chloride (Sodium Chloride 0.9%) 1,000 mls @ 75 mls/hr IV .[id number] [facility] Stop: 03/25/18 07:46 Last Admin: 03/25/18 03:31 Dose: 75 mls/hr Insulin Detemir (Levemir) 36 units SC [facility] Last Admin: 03/24/18 21:25 Dose: 36 units Insulin Human Regular (Humulin R) 0 units SC ACCU-CHECK [facility]; Protocol Last Admin: 03/24/18 23:00 Dose: Not Given Levothyroxine Sodium (Synthroid) 175 mcg PO DAILY@0630 [facility] Last Admin: 03/25/18 06:19 Dose: 175 mcg [id number] Ethyl Esters (Lovaza) 1 gm PO BID [facility] Last Admin: 03/24/18 16:27 Dose: 1 gm Thiamine HCl (Vitamin B1 Tab) 100 mg PO DAILY [facility] Last Admin: 03/24/18 08:13 Dose: 100 mg - Labs Labs: 03/23/18 08:45 03/24/18 04:15 PT 11.3 Seconds (9.8-13.1) 03/22/18 10:30 INR 1.0 03/22/18 10:30 APTT 30.6 Seconds (25.6-37.1) 03/22/18 10:30 - Constitutional Appears: Non-toxic - Head Exam Head Exam: NORMAL INSPECTION - Eye Exam Eye Exam: Normal appearance - ENT Exam ENT Exam: Mucous Membranes Moist - Neck Exam Neck Exam: Full ROM - Respiratory Exam Respiratory Exam: Decreased Breath Sounds - Cardiovascular Exam Cardiovascular Exam: REGULAR RHYTHM - GI/Abdominal Exam GI & Abdominal Exam: Normal Bowel Sounds - Rectal Exam Rectal Exam: Deferred - Extremities Exam Extremities Exam: absent: Pedal Edema - Back Exam Back Exam: NORMAL INSPECTION - Neurological Exam Neurological Exam: Alert - Psychiatric Exam Psychiatric exam: Normal Affect - Skin Skin Exam: Normal Color Assessment and Plan (1) Atrial fibrillation Assessment & Plan: rate is controlled. continue current management Status: Acute
[2018-03-25 07:59] VITALS: RESP 18
[2018-03-25] MEDS: Azithromycin 500 MG in Sodium Chloride 0.9% 250 ML IVPB SCH (08:42)
[2018-03-25] MEDS: Omega-3-Acid Ethyl Esters 1 GM Cap PO SCH (08:43)
[2018-03-25] MEDS: GlipiZIDE 10 mg SR Tab PO SCH (08:44)
[2018-03-25] MEDS: Enoxaparin 40 mg Syringe SC SCH (08:44)
[2018-03-25] MEDS: Insulin Regular 100 units/ml SC SCH ×2 (08:44→11:17)
[2018-03-25] MEDS: Cholecalciferol 1,000 INTLU TAB PO SCH (08:48)
[2018-03-25 11:03] LABS: BLOOD UREA NITROGEN 37 mg/dl (9-20); CALCIUM 8.8 mg/dL (8.4-10.2); GFR NON-AFRICAN AMERICAN 53
--- NOTE | 2018-03-25 11:24 | CP.PCM.DIS ---
Provider - Provider Date of Admission: 03/22/18 13:28 Attending physician: Pérez Crain MD Consults: 03/23/18 08:31 Cardiology Consult Routine Comment: Consulting Provider: Rodney Castellano Consulting Physician: Rodney Castellano Reason for Consult: CAD 03/23/18 08:32 Pulmonology Consult Routine Comment: Consulting Provider: Skip Abdullahi Consulting Physician: Skip Abdullahi Reason for Consult: pneumonia Time Spent in preparation of Discharge (in minutes): 30 Diagnosis - Discharge Diagnosis (1) Pneumonia Status: Acute Priority: High (2) COPD with acute exacerbation Status: Acute Priority: High (3) Debility Status: Acute (4) Hypoxia Status: Chronic Priority: High (5) Coronary arteriosclerosis Status: Chronic (6) Diabetes 1.5, managed as type 2 Status: Chronic (7) Hypertensive cardiomyopathy Status: Chronic (8) Delirium Status: Acute (9) Delirium Status: Acute (10) Hyperkalemia Status: Acute (11) Renal failure Status: Acute (12) Renal failure, acute Status: Acute Hospital Course - Lab Results Lab Results: Micro Results 03/22/18 10:20 Blood Blood Culture - Preliminary NO GROWTH AFTER 3 DAYS Most Recent Lab Values WBC 14.3 K/uL (4.8-10.8) H 03/23/18 08:45 RBC 3.12 Mil/uL (4.40-5.90) L 03/23/18 08:45 Hgb 8.0 g/dL (12.0-18.0) L 03/23/18 08:45 Hct 27.2 % (35.0-51.0) L 03/23/18 08:45 MCV 87.2 fl (80.0-94.0) 03/23/18 08:45 MCH 25.8 pg (27.0-31.0) L 03/23/18 08:45 MCHC 29.6 g/dL (33.0-37.0) L 03/23/18 08:45 RDW 16.0 % (11.5-14.5) H 03/23/18 08:45 Plt Count 216 K/uL (130-400) 03/23/18 08:45 MPV 10.5 fl (7.2-11.7) 03/23/18 08:45 Neut % (Auto) 86.9 % (50.0-75.0) H 03/23/18 08:45 Lymph % (Auto) 7.3 % (20.0-40.0) L 03/23/18 08:45 [place] % (Auto) 5.1 % (0.0-10.0) 03/23/18 08:45 Eos % (Auto) 0.1 % (0.0-4.0) 03/23/18 08:45 Baso % (Auto) 0.6 % (0.0-2.0) 03/23/18 08:45 Neut # (Auto) 12.4 K/uL (1.8-7.0) H 03/23/18 08:45 Lymph # (Auto) 1.0 K/uL (1.0-4.3) 03/23/18 08:45 [place] # (Auto) 0.7 K/uL (0.0-0.8) 03/23/18 08:45 Eos # (Auto) 0.0 K/uL (0.0-0.7) 03/23/18 08:45 Baso # (Auto) 0.1 K/uL (0.0-0.2) 03/23/18 08:45 Neutrophils % (Manual) 90 % (42-75) H 03/23/18 08:45 Band Neutrophils % 1 % (0-2) 03/23/18 08:45 Lymphocytes % (Manual) 5 % (20-50) L 03/23/18 08:45 Monocytes % (Manual) 4 % (0-10) 03/23/18 08:45 Platelet Estimate Normal (NORMAL) 03/23/18 08:45 Plt Clumps, EDTA Present 03/23/18 08:45 Hypochromasia (manual) Moderate 03/23/18 08:45 Anisocytosis (manual) Slight 03/23/18 08:45 PT 11.3 Seconds (9.8-13.1) 03/22/18 10:30 INR 1.0 03/22/18 10:30 APTT 30.6 Seconds (25.6-37.1) 03/22/18 10:30 pCO2 50 mm/Hg (35-45) H 03/22/18 10:22 pO2 68 mm/Hg (80-100) L 03/22/18 10:22 HCO3 25.1 mmol/L (21-28) 03/22/18 10:22 ABG pH 7.33 (7.35-7.45) L 03/22/18 10:22 ABG Total CO2 27.9 mmol/L (22-28) 03/22/18 10:22 ABG O2 Saturation 98.6 % (95-98) H 03/22/18 10:22 ABG Base Excess 0.2 mmol/L (-2.0-3.0) 03/22/18 10:22 Kurtis Test Yes 03/22/18 10:22 ABG Potassium 4.9 mmol/L (3.6-5.2) 03/22/18 10:22 A-a O2 Difference 98.0 mm/Hg 03/22/18 10:22 Sodium 141.0 mmol/L (132-148) 03/22/18 10:22 Chloride 109.0 mmol/L (98-107) H 03/22/18 10:22 Glucose 269 mg/dL (75-110) H 03/22/18 10:22 Lactate 1.1 mmol/L (0.7-2.1) 03/22/18 10:22 Vent Mode Nc 03/22/18 10:22 FiO2 32.0 % 03/22/18 10:22 Sodium 142 mmol/l (132-148) 03/25/18 10:36 Potassium 4.1 MMOL/L (3.6-5.0) 03/25/18 10:36 Chloride 107 mmol/L (98-107) 03/25/18 10:36 Carbon Dioxide 29 mmol/L (22-30) 03/25/18 10:36 Anion Gap 10 (10-20) 03/25/18 10:36 BUN 37 mg/dl (9-20) H 03/25/18 10:36 Creatinine 1.3 mg/dl (0.8-1.5) 03/25/18 10:36 Est GFR ( Amer) > 60 03/25/18 10:36 Est GFR (Non-Af Amer) 53 03/25/18 10:36 POC Glucose (mg/dL) 115 mg/dL (65-110) H 03/25/18 05:05 Random Glucose 173 mg/dL (75-110) H 03/25/18 10:36 Hemoglobin A1c 9.1 % (4.2-6.5) H 03/22/18 16:19 Calcium 8.8 mg/dL (8.4-10.2) 03/25/18 10:36 Phosphorus 4.3 mg/dl (2.5-4.5) 03/23/18 16:23 Magnesium 2.1 MG/DL (1.6-2.3) 03/23/18 16:23 Total Bilirubin < 0.1 mg/dl (0.2-1.3) L 03/24/18 04:15 AST 43 U/L (17-59) 03/24/18 04:15 ALT 57 U/L (21-72) 03/24/18 04:15 Alkaline Phosphatase 80 U/L (38-126) 03/24/18 04:15 Troponin I 0.0330 ng/mL (0.00-0.120) 03/22/18 10:30 NT-Pro-B Natriuret Pep 304 pg/ml (0-900) 03/22/18 10:30 Total Protein 6.3 G/DL (6.3-8.2) 03/24/18 04:15 Albumin 3.2 g/dL (3.5-5.0) L 03/24/18 04:15 Globulin 3.0 gm/dL (2.2-3.9) 03/24/18 04:15 Albumin/Globulin Ratio 1.1 (1.0-2.1) 03/24/18 04:15 TSH 3rd Generation 0.53 mIU/ML (0.46-4.68) 03/22/18 16:19 Arterial Blood Potassium 4.9 mmol/L (3.6-5.2) 03/22/18 10:22 Influenza Typ A,B (EIA) Negative for flu a/b (NEGATIVE) 03/22/18 10:40 Mycoplasma pneumon IgM Negative (NEGATIVE) 03/24/18 10:09 - Hospital Course Hospital Course: 77 y/o male presented in ER with persistent dyspnea, orthopnea, mental status changes, SOB, fever, weakness for 2 days. An xray reveled an infiltrate. In ER the patient presented with BUN greater than 19 DBP less than 60 Hypoxemia he was confuse He has significant comorbidities, severe coronary artery disease, CHF, severe peripheral vascular disease, COPD, uncontrolled DM2. The patient at admission CURB 4. He well responded to rx. Still weak, debilitated and at times hypoxic. Will follow in TCU to complete 7 more days of rx. Discharge Exam - Head Exam Head Exam: NORMAL INSPECTION - Eye Exam Eye Exam: Normal appearance - ENT Exam ENT Exam: Mucous Membranes Moist - Neck Exam Neck exam: Full Rom - Respiratory Exam Respiratory Exam: Decreased Breath Sounds - Cardiovascular Exam Cardiovascular Exam: REGULAR RHYTHM, +S1, +S2 - GI/Abdominal Exam GI & Abdominal Exam: Normal Bowel Sounds - Extremities Exam Extremities exam: normal inspection - Neurological Exam Neurological exam: Alert, CN II-XII Intact, Oriented x3 - Psychiatric Exam Psychiatric exam: Normal Affect - Skin Skin Exam: Normal Color Discharge Plan - Discharge Medications Prescriptions: cefTRIAXone 1 gm [Rocephin 1 gram IVPB] 1 gm IVPB DAILY 7 Days #7 bag Azithromycin [Zithomax 500mg IV] 500 mg IVPB DAILY 7 Days #7 pds - Follow Up Plan Condition: FAIR Disposition: REHAB FACILITY/REHAB UNIT
[2018-03-25 12:02] VITALS: O2SAT 95
--- NOTE | 2018-03-25 12:48 | CP.PCM.PN ---
Subjective - Date & Time of Evaluation Date of Evaluation: 03/25/18 Time of Evaluation: 12:48 - Subjective Subjective: Seated in his bedside chair. Complains that he is very uncomfortable in the bed. Still has occasional coughing, but no sputum is expectorated. Remains afebrile, stable vital signs. Trace dependant edema, no cyanosis. Neck supple and trachea midline. No palpable lymphadenopathy. No dullness on chest percussion. Breath sounds are diminished bilaterally. Sonorous rhonchi are heard more left than right. No audible wheezes or bronchial breath sounds. Added LAMA to regimen. Will retain SUREKHA for PRN use. Scheduled for discharge to [facility]. Objective - Vital Signs/Intake and Output Vital Signs (last 24 hours): Temp Pulse Resp BP Pulse Ox 98 F 84 18 155/62 H 95 03/25/18 12:02 03/25/18 12:02 03/25/18 12:02 03/25/18 12:02 03/25/18 12:02 Intake and Output: 03/25/18 03/25/18 11:59 23:59 Intake Total 900 Output Total 500 Balance 400 - Medications Medications: Current Medications Albuterol/Ipratropium (Duoneb 3 Mg/0.5 Mg (3 Ml) Ud) 3 ml INH RQ6 PRN PRN Reason: Shortness of Breath Amlodipine Besylate (Norvasc) 5 mg PO DAILY [facility] Last Admin: 03/25/18 08:43 Dose: 5 mg Aspirin (Ecotrin) 81 mg PO DAILY [facility] Last Admin: 03/25/18 08:43 Dose: 81 mg Atorvastatin Calcium (Lipitor) 20 mg PO HS [facility] Last Admin: 03/24/18 21:25 Dose: 20 mg Cholecalciferol (Vitamin D) 5,000 intlu PO DAILY [facility] Last Admin: 03/25/18 08:48 Dose: 5,000 intlu Clopidogrel Bisulfate (Plavix) 75 mg PO DAILY [facility] Last Admin: 03/25/18 08:44 Dose: 75 mg Enoxaparin Sodium (Lovenox) 40 mg SC DAILY [facility]; Protocol Last Admin: 03/25/18 08:44 Dose: 40 mg Folic Acid (Folic Acid) 1 mg PO DAILY [facility] Last Admin: 03/25/18 08:43 Dose: 1 mg Glipizide (Glucotrol Xl) 10 mg PO DAILY [facility] Last Admin: 03/25/18 08:44 Dose: 10 mg Ceftriaxone Sodium 1 gm/ (Sodium Chloride) 100 mls @ 100 mls/hr IVPB DAILY [facility]; Protocol Last Admin: 03/25/18 08:43 Dose: 100 mls/hr Azithromycin 500 mg/ Sodium (Chloride) 250 mls @ 250 mls/hr IVPB DAILY [facility]; Protocol Last Admin: 03/25/18 08:42 Dose: 250 mls/hr Insulin Detemir (Levemir) 36 units SC HS [facility] Last Admin: 03/24/18 21:25 Dose: 36 units Insulin Human Regular (Humulin R) 0 units SC ACCU-CHECK [facility]; Protocol Last Admin: 03/25/18 11:17 Dose: 2 units Levothyroxine Sodium (Synthroid) 175 mcg PO DAILY@0630 [facility] Last Admin: 03/25/18 06:19 Dose: 175 mcg [id number] Ethyl Esters (Lovaza) 1 gm PO BID [facility] Last Admin: 03/25/18 08:43 Dose: 1 gm Thiamine HCl (Vitamin B1 Tab) 100 mg PO DAILY [facility] Last Admin: 03/25/18 08:43 Dose: 100 mg - Labs Labs: 03/23/18 08:45 03/25/18 10:36 PT 11.3 Seconds (9.8-13.1) 03/22/18 10:30 INR 1.0 03/22/18 10:30 APTT 30.6 Seconds (25.6-37.1) 03/22/18 10:30 Assessment and Plan (1) Pneumonia Status: Acute (2) COPD exacerbation Status: Acute (3) Hypoxia Status: Chronic
[2018-03-25] MEDS ORDERED: Albuterol 0.083% Inhal Sol (2.5 mg/3 mL) UD INH PRN (13:03)
[2018-03-25] MEDS ORDERED: Tiotropium 18 mcg Cap For Inhalation INH SCH (13:15)
[2018-03-25 15:00] LABS: N MENINGITIS ACY/W135 NOT REQUIRED (NEGATIVE); N MENINGITIS B/ECOLI K1 NOT REQUIRED (NEGATIVE); STREP PNEUMONIAE NEGATIVE (NEGATIVE); STREPTOCOCCUS B NOT REQUIRED (NEGATIVE)
[2018-03-25 15:47] VITALS: BP 151/81; PULSE 77; TEMP 98.7
== END 2018-03-25 16:18 | DRG 190 ==
LOC: H.ER 09:44 → H.ERHOLD 13:28 → H.TEL 19:11
PROVIDERS: ADMIT Internal Medicine; ATTEND Internal Medicine
DX: J44.0 Chronic obstructive pulmonary disease with (acute) lower respiratory infection (principal); J18.9 Pneumonia, unspecified organism; N17.9 Acute kidney failure, unspecified; I13.0 Hypertensive heart and chronic kidney disease with heart failure and stage 1 through stage 4 chronic kidney disease, or unspecified chronic kidney disease; I43 Cardiomyopathy in diseases classified elsewhere; J44.1 Chronic obstructive pulmonary disease with (acute) exacerbation; E87.5 Hyperkalemia; R09.02 Hypoxemia; I50.9 Heart failure, unspecified; N18.9 Chronic kidney disease, unspecified; I48.91 Unspecified atrial fibrillation; I25.10 Atherosclerotic heart disease of native coronary artery without angina pectoris; E11.65 Type 2 diabetes mellitus with hyperglycemia; E11.22 Type 2 diabetes mellitus with diabetic chronic kidney disease; E11.51 Type 2 diabetes mellitus with diabetic peripheral angiopathy without gangrene; E03.9 Hypothyroidism, unspecified; D64.9 Anemia, unspecified; E78.00 Pure hypercholesterolemia, unspecified; Z79.4 Long term (current) use of insulin; Z85.46 Personal history of malignant neoplasm of prostate; Z87.01 Personal history of pneumonia (recurrent); Z95.5 Presence of coronary angioplasty implant and graft; Z87.891 Personal history of nicotine dependence

== ENCOUNTER 2018-03-25 15:03 | Inpatient (IN) | payer BC, OTHER ==
[2018-03-25 17:37] VITALS: BMI 36.0
[2018-03-25] MEDS ORDERED: Albuterol-Ipratrop 3 mg / 0.5 (3 ml) UD INH PRN (18:01)
[2018-03-25] MEDS ORDERED: Dextrose 50% SYRINGE Inj (50 ml) IV PRN (18:04)
[2018-03-25] MEDS ORDERED: Glucagon Recombinant 1 mg Inj IM PRN (18:04)
[2018-03-25] MEDS: Insulin Detemir 100 Units/ml Inj SC SCH (22:08)
[2018-03-25] MEDS: Insulin Regular 100 units/ml SC SCH (22:08)
[2018-03-26] MEDS: Levothyroxine 175 MCG TAB PO SCH (06:30)
[2018-03-26] MEDS: Insulin Regular 100 units/ml SC SCH ×5 (06:31→21:22)
[2018-03-26] MEDS ORDERED: GlipiZIDE 10 mg SR Tab PO SCH (09:00)
[2018-03-26] MEDS ORDERED: AZITHROMYCIN 500 MG IVPB SCH (09:00)
[2018-03-26] MEDS ORDERED: cefTRIAXone IV 1 gm in Dextros 50 ML BAG IVPB SCH (09:00)
[2018-03-26] MEDS: Tiotropium 18 mcg Cap For Inhalation INH SCH (09:53)
[2018-03-26] MEDS: Enoxaparin 40 mg Syringe SC SCH (09:53)
[2018-03-26] MEDS: GlipiZIDE 10 mg SR Tab PO SCH (09:56)
[2018-03-26] MEDS: Omega-3-Acid Ethyl Esters 1 GM Cap PO SCH ×2 (09:57→18:03)
[2018-03-26] MEDS: Azithromycin 500 MG in Sodium Chloride 0.9% 250 ML IVPB SCH (10:33)
[2018-03-26] MEDS: Insulin Detemir 100 Units/ml Inj SC SCH (21:21)
[2018-03-26] MEDS: Albuterol 0.083% Inhal Sol (2.5 mg/3 mL) UD INH PRN (23:50)
[2018-03-27] MEDS: Insulin Regular 100 units/ml SC SCH ×4 (06:32→21:32)
[2018-03-27] MEDS: Levothyroxine 175 MCG TAB PO SCH (06:32)
[2018-03-27 07:12] LABS: BASO % 0.6 % (0.0-2.0); EOS # 0.2 K/uL (0.0-0.7); EOS % 3.3 % (0.0-4.0); HEMOGLOBIN 7.4 g/dL (12.0-18.0); LYMPH # 1.7 K/uL (1.0-4.3); LYMPH % 23.8 % (20.0-40.0); MEAN CELL VOLUME 86.6 fl (80.0-94.0); MEAN CORPUSCULAR HEMOGLOBIN 26.5 pg (27.0-31.0); MEAN CORPUSCULAR HGB CONC 30.7 g/dL (33.0-37.0); MEAN PLATELET VOLUME 10.5 fl (7.2-11.7); MONO # 0.6 K/uL (0.0-0.8); MONO % 8.7 % (0.0-10.0); NEUT # 4.4 K/uL (1.8-7.0); NEUT % 63.6 % (50.0-75.0); NRBC % 0.2 % (0.0-0.0); RBC 2.79 Mil/uL (4.40-5.90); RED CELL DISTRIBUTION WIDTH 15.9 % (11.5-14.5)
[2018-03-27 07:31] LABS: BLOOD UREA NITROGEN 30 mg/dl (9-20); CALCIUM 8.7 mg/dL (8.4-10.2); GFR NON-AFRICAN AMERICAN 58
[2018-03-27] MEDS: Azithromycin 500 MG in Sodium Chloride 0.9% 250 ML IVPB SCH (08:48)
[2018-03-27] MEDS: Enoxaparin 40 mg Syringe SC SCH (08:49)
[2018-03-27] MEDS: GlipiZIDE 10 mg SR Tab PO SCH (08:51)
[2018-03-27] MEDS: Tiotropium 18 mcg Cap For Inhalation INH SCH (08:51)
[2018-03-27] MEDS: Omega-3-Acid Ethyl Esters 1 GM Cap PO SCH ×2 (08:51→17:49)
--- NOTE | 2018-03-27 18:39 | CP.PCM.HP ---
History of Present Illness - History of Present Illness History of Present Illness: 77 y/o male presented in ER with persistent dyspnea, orthopnea, mental status changes, SOB, fever, weakness for 2 days. An xray reveled an infiltrate. In ER the patient presented with BUN greater than 19 DBP less than 60 Hypoxemia he was confuse He has significant comorbidities, severe coronary artery disease, CHF, severe peripheral vascular disease, COPD, uncontrolled DM2. The patient at admission CURB 4. He well responded to rx. Still weak, debilitated and at times hypoxic. Will follow in TCU to complete 7 more days of rx. At present the patient presents with a microcytic anemia will start iron iv and will follow labs. He is hemodynamically stable. Present on Admission - Present on Admission Any Indicators Present on Admission: No Review of Systems - Constitutional Constitutional: As Per HPI - Respiratory Respiratory: Dyspnea on Exertion - Gastrointestinal Gastrointestinal: As Per HPI - Musculoskeletal Musculoskeletal: As Per HPI - Integumentary Integumentary: As Per HPI - Neurological Neurological: As Per HPI - Psychiatric Psychiatric: As Per HPI Past Patient History - Past Medical History & Family History Past Medical History?: Yes - Past Social History Smoking Status: Former Smoker - CARDIAC Hx Cardiac Disorders: Yes Hx Congestive Heart Failure: Yes Hx Hypercholesterolemia: Yes Hx Hypertension: Yes - PULMONARY Hx Chronic Obstructive Pulmonary Disease (COPD): Yes - NEUROLOGICAL Hx Neurological Disorder: No - HEENT Hx HEENT Problems: No - RENAL Hx Chronic Kidney Disease: Yes - ENDOCRINE/METABOLIC Hx Diabetes Mellitus Type 1: Yes Hx Diabetes Mellitus Type 2: Yes Hx Hypothyroidism: Yes - HEMATOLOGICAL/ONCOLOGICAL Hx Anemia: Yes Hx Human Immunodeficiency Virus (HIV): No - INTEGUMENTARY Hx Dermatological Problems: No - MUSCULOSKELETAL/RHEUMATOLOGICAL Hx Falls: Yes - GASTROINTESTINAL Hx Gastritis: Yes Other/Comment: colonic AVMs - GENITOURINARY/GYNECOLOGICAL Hx Prostate Cancer: Yes - PSYCHIATRIC Hx Psychophysiologic Disorder: No Hx Substance Use: No - SURGICAL HISTORY Hx Coronary Stent: Yes Hx Vascular Surgery: Yes Other/Comment: prostatectomy - ANESTHESIA Hx Anesthesia: Yes Hx Anesthesia Reactions: No Hx Malignant Hyperthermia: No Meds Allergies/Adverse Reactions: Allergies Allergy/AdvReac Type Severity Reaction Status Date / Time No Known Allergies Allergy Verified 03/25/18 17:37 Physical Exam - Constitutional Appears: Chronically Ill - Head Exam Head Exam: ATRAUMATIC, NORMAL INSPECTION, NORMOCEPHALIC - Eye Exam Eye Exam: Normal appearance - ENT Exam ENT Exam: Mucous Membranes Moist - Neck Exam Neck exam: Positive for: Full Rom - Respiratory Exam Respiratory Exam: Clear to Auscultation Bilateral - Cardiovascular Exam Cardiovascular Exam: REGULAR RHYTHM, +S1, +S2 - GI/Abdominal Exam GI & Abdominal Exam: Normal Bowel Sounds - Rectal Exam Rectal Exam: Deferred - Extremities Exam Extremities exam: Positive for: normal inspection - Neurological Exam Neurological exam: Alert, CN II-XII Intact, Normal Gait, Oriented x3, Reflexes Normal - Psychiatric Exam Psychiatric exam: Normal Affect - Skin Skin Exam: Normal Color Results - Vital Signs Recent Vital Signs: Last Vital Signs Temp 98.5 F 03/27/18 16:00 Pulse 72 03/27/18 16:00 Resp 20 03/27/18 16:00 BP 152/66 H 03/27/18 16:00 Pulse Ox 94 L 03/27/18 16:00 - Labs Result Diagrams: 03/27/18 19:33 03/27/18 19:33 Labs: Laboratory Results - last 24 hr 03/26/18 03/27/18 03/27/18 20:46 05:25 05:25 WBC 7.0 D RBC 2.79 L Hgb 7.4 L Hct 24.1 L MCV 86.6 MCH 26.5 L MCHC 30.7 L RDW 15.9 H Plt Count 194 MPV 10.5 Neut % (Auto) 63.6 Lymph % (Auto) 23.8 [place] % (Auto) 8.7 Eos % (Auto) 3.3 Baso % (Auto) 0.6 Neut # (Auto) 4.4 Lymph # (Auto) 1.7 [place] # (Auto) 0.6 Eos # (Auto) 0.2 Baso # (Auto) 0.0 Sodium 144 Potassium 4.0 Chloride 106 Carbon Dioxide 31 H Anion Gap 11 BUN 30 H Creatinine 1.2 Est GFR ( Amer) > 60 Est GFR (Non-Af Amer) 58 POC Glucose (mg/dL) 290 H Random Glucose 184 H Calcium 8.7 03/27/18 03/27/18 03/27/18 05:27 11:22 15:40 WBC RBC Hgb Hct MCV MCH MCHC RDW Plt Count MPV Neut % (Auto) Lymph % (Auto) [place] % (Auto) Eos % (Auto) Baso % (Auto) Neut # (Auto) Lymph # (Auto) [place] # (Auto) Eos # (Auto) Baso # (Auto) Sodium Potassium Chloride Carbon Dioxide Anion Gap BUN Creatinine Est GFR ( Amer) Est GFR (Non-Af Amer) POC Glucose (mg/dL) 208 H 296 H 188 H Random Glucose Calcium Assessment & Plan (1) Anemia Status: Acute Priority: High (2) Anemia associated with acute blood loss Status: Suspected (3) COPD exacerbation Status: Acute Priority: High (4) COPD with acute exacerbation Status: Acute Priority: High (5) Dehydration Status: Acute (6) GI bleed Status: Acute (7) Weakness Status: Acute Priority: High (8) Coronary arteriosclerosis after coronary artery bypass grafting Status: Chronic (9) Diabetes 1.5, managed as type 2 Status: Chronic (10) Hypertensive cardiomyopathy Status: Chronic - Assessment and Plan (Free Text) Plan: As per orders.
[2018-03-27 19:49] LABS: BASO % 0.6 % (0.0-2.0); EOS # 0.2 K/uL (0.0-0.7); EOS % 3.1 % (0.0-4.0); HEMOGLOBIN 7.6 g/dL (12.0-18.0); LYMPH # 1.7 K/uL (1.0-4.3); LYMPH % 23.2 % (20.0-40.0); MEAN CELL VOLUME 84.8 fl (80.0-94.0); MEAN CORPUSCULAR HEMOGLOBIN 26.3 pg (27.0-31.0); MEAN PLATELET VOLUME 9.9 fl (7.2-11.7); MONO # 0.6 K/uL (0.0-0.8); NEUT # 4.6 K/uL (1.8-7.0); NEUT % 64.1 % (50.0-75.0); NRBC % 0.2 % (0.0-0.0); RBC 2.87 Mil/uL (4.40-5.90); RED CELL DISTRIBUTION WIDTH 16.3 % (11.5-14.5); WHITE BLOOD COUNT 7.2 K/uL (4.8-10.8)
[2018-03-27 20:15] LABS: IRON 23 ug/dL (49-181)
[2018-03-27 20:24] LABS: % IRON SATURATION 6 % (20-55); TOTAL IRON BINDING CAPACITY 392 ug/dL (250-450)
[2018-03-27 20:44] LABS: BLOOD UREA NITROGEN 28 mg/dl (9-20); CALCIUM 8.7 mg/dL (8.4-10.2); GFR NON-AFRICAN AMERICAN 53
[2018-03-27 20:50] LABS: FERRITIN 7.7 ng/Ml (17.9-464)
[2018-03-27] MEDS: Insulin Detemir 100 Units/ml Inj SC SCH (21:33)
[2018-03-27] MEDS: Albuterol 0.083% Inhal Sol (2.5 mg/3 mL) UD INH PRN (23:31)
[2018-03-28] MEDS: Insulin Regular 100 units/ml SC SCH ×4 (06:36→22:07)
[2018-03-28] MEDS: Levothyroxine 175 MCG TAB PO SCH (06:36)
[2018-03-28 08:05] LABS: BASO # 0.1 K/uL (0.0-0.2); BASO % 1.2 % (0.0-2.0); EOS # 0.2 K/uL (0.0-0.7); EOS % 2.6 % (0.0-4.0); HEMOGLOBIN 7.3 g/dL (12.0-18.0); LYMPH # 1.7 K/uL (1.0-4.3); LYMPH % 23.5 % (20.0-40.0); MEAN CELL VOLUME 85.6 fl (80.0-94.0); MEAN CORPUSCULAR HEMOGLOBIN 26.1 pg (27.0-31.0); MEAN CORPUSCULAR HGB CONC 30.5 g/dL (33.0-37.0); MEAN PLATELET VOLUME 10.3 fl (7.2-11.7); MONO # 0.6 K/uL (0.0-0.8); MONO % 8.2 % (0.0-10.0); NEUT # 4.6 K/uL (1.8-7.0); NEUT % 64.5 % (50.0-75.0); NRBC % 0.1 % (0.0-0.0); RBC 2.79 Mil/uL (4.40-5.90); RED CELL DISTRIBUTION WIDTH 16.1 % (11.5-14.5); WHITE BLOOD COUNT 7.1 K/uL (4.8-10.8)
[2018-03-28 08:22] LABS: BLOOD UREA NITROGEN 24 mg/dl (9-20); CALCIUM 8.8 mg/dL (8.4-10.2); GFR NON-AFRICAN AMERICAN 53
[2018-03-28] MEDS: Azithromycin 500 MG in Sodium Chloride 0.9% 250 ML IVPB SCH (08:43)
[2018-03-28] MEDS: GlipiZIDE 10 mg SR Tab PO SCH (08:49)
[2018-03-28] MEDS: Omega-3-Acid Ethyl Esters 1 GM Cap PO SCH ×2 (08:49→18:33)
[2018-03-28] MEDS: Tiotropium 18 mcg Cap For Inhalation INH SCH (10:28)
--- NOTE | 2018-03-28 12:09 | CP.PCM.CON ---
History of Present Illness - History of Present Illness History of Present Illness: This is a 78 yrs old male who was admitted for cough ,congestion and fever. The chest Xray showed a infiltrate so he was admitted for antibiotics. 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 No blood in the stools , and no bleeding from anywhere else. His hg was 7.3gms.. wbc,7.0 and platelets 200K. No other medical problems. Past Patient History - Past Medical History & Family History Past Medical History?: Yes - Past Social History Smoking Status: Former Smoker - CARDIAC Hx Cardiac Disorders: Yes Hx Congestive Heart Failure: Yes Hx Hypercholesterolemia: Yes Hx Hypertension: Yes - PULMONARY Hx Chronic Obstructive Pulmonary Disease (COPD): Yes - NEUROLOGICAL Hx Neurological Disorder: No - HEENT Hx HEENT Problems: No - RENAL Hx Chronic Kidney Disease: Yes - ENDOCRINE/METABOLIC Hx Diabetes Mellitus Type 1: Yes Hx Diabetes Mellitus Type 2: Yes Hx Hypothyroidism: Yes - HEMATOLOGICAL/ONCOLOGICAL Hx Anemia: Yes Hx Human Immunodeficiency Virus (HIV): No - INTEGUMENTARY Hx Dermatological Problems: No - MUSCULOSKELETAL/RHEUMATOLOGICAL Hx Falls: Yes - GASTROINTESTINAL Hx Gastritis: Yes Other/Comment: colonic AVMs - GENITOURINARY/GYNECOLOGICAL Hx Prostate Cancer: Yes - PSYCHIATRIC Hx Psychophysiologic Disorder: No Hx Substance Use: No - SURGICAL HISTORY Hx Coronary Stent: Yes Hx Vascular Surgery: Yes Other/Comment: prostatectomy - ANESTHESIA Hx Anesthesia: Yes Hx Anesthesia Reactions: No Hx Malignant Hyperthermia: No Meds Allergies/Adverse Reactions: Allergies Allergy/AdvReac Type Severity Reaction Status Date / Time No Known Allergies Allergy Verified 03/25/18 17:37 - Medications Medications: Current Medications Albuterol Sulfate (Albuterol 0.083% Inhal Marissa (2.5 Mg/3 Ml) Ud) 2.5 mg INH RQ4 PRN PRN Reason: Shortness of Breath Last Admin: 03/27/18 23:31 Dose: 2.5 mg Amlodipine Besylate (Norvasc) 5 mg PO DAILY [facility] Last Admin: 03/28/18 08:48 Dose: 5 mg Atorvastatin Calcium (Lipitor) 20 mg PO HS [facility] Last Admin: 03/27/18 21:34 Dose: 20 mg Dextrose (Dextrose 50% Inj) 0 ml IV STAT PRN; Protocol PRN Reason: Hypoglycemia Protocol Dextrose (Glutose 15) 0 gm PO ONCE PRN; Protocol PRN Reason: Hypoglycemia Protocol Docusate Sodium (Colace) [address] [facility] Last Admin: 03/28/18 08:45 Dose: 100 mg Folic Acid (Folic Acid) [address] [facility] Last Admin: 03/28/18 10:28 Dose: 1 mg Glipizide (Glucotrol Xl) [address] [facility] Last Admin: 03/28/18 08:49 Dose: 10 mg Glucagon (Glucagen Diagnostic Kit) 0 mg IM STAT PRN; Protocol PRN Reason: Hypoglycemia Protocol Ceftriaxone Sodium 1 gm/ (Sodium Chloride) 100 mls @ 100 mls/hr IVPB DAILY [facility] Last Admin: 03/28/18 08:44 Dose: 100 mls/hr Azithromycin 500 mg/ Sodium (Chloride) 250 mls @ 125 mls/hr IVPB DAILY [facility] Last Admin: 03/28/18 08:43 Dose: 125 mls/hr Iron Sucrose 200 mg/ Sodium (Chloride) 110 mls @ 110 mls/hr IVPB DAILY [facility] Last Admin: 03/28/18 10:28 Dose: 110 mls/hr Insulin Detemir (Levemir) 36 units SC [facility] Last Admin: 03/27/18 21:33 Dose: 36 units Insulin Human Regular (Humulin R) 0 units SC [facility]; Protocol Last Admin: 03/28/18 06:36 Dose: Not Given Levothyroxine Sodium (Synthroid) 175 mcg PO DAILY@0630 [facility] Last Admin: 03/28/18 06:36 Dose: 175 mcg Metformin HCl (Glucophage) 1,[address] [facility] Last Admin: 03/28/18 08:44 Dose: 1,000 mg [id number] Ethyl Esters (Lovaza) [address] [facility] Last Admin: 03/28/18 08:49 Dose: 1 gm Pantoprazole Sodium (Protonix Inj) [address] [facility] Last Admin: 03/28/18 08:50 Dose: 40 mg Thiamine HCl (Vitamin B1 Tab) [address] [facility] Last Admin: 03/28/18 08:50 Dose: 100 mg Tiotropium [place] (Spiriva) [address] [facility] Last Admin: 03/28/18 10:28 Dose: 18 mcg Physical Exam - Additional Findings Additional findings: Pyhysical Exam; Alert, well oriented in no acute distress Neck; supple, no adenopathy Chest; Air entry good ,scattered rales. Results - Vital Signs Recent Vital Signs: Last Vital Signs Temp 98.0 F 03/28/18 10:00 Pulse 70 03/28/18 10:00 Resp 18 03/28/18 10:00 BP 154/67 H 03/28/18 10:00 Pulse Ox 97 03/28/18 10:00 - Labs Result Diagrams: 03/28/18 07:31 03/28/18 07:31 Labs: Laboratory Results - last 24 hr 03/27/18 03/27/18 03/27/18 15:40 19:33 19:33 WBC 7.2 RBC 2.87 L Hgb 7.6 L Hct 24.4 L MCV 84.8 MCH 26.3 L MCHC 31.0 L RDW 16.3 H Plt Count 193 MPV 9.9 Neut % (Auto) 64.1 Lymph % (Auto) 23.2 [place] % (Auto) 9.0 Eos % (Auto) 3.1 Baso % (Auto) 0.6 Neut # (Auto) 4.6 Lymph # (Auto) 1.7 [place] # (Auto) 0.6 Eos # (Auto) 0.2 Baso # (Auto) 0.0 Sodium Potassium Chloride Carbon Dioxide Anion Gap BUN Creatinine Est GFR ( Amer) Est GFR (Non-Af Amer) POC Glucose (mg/dL) 188 H Random Glucose Calcium Iron 23 L TIBC 392 % Saturation 6 L Ferritin 03/27/18 03/27/18 03/28/18 19:33 20:47 05:19 WBC RBC Hgb Hct MCV MCH MCHC RDW Plt Count MPV Neut % (Auto) Lymph % (Auto) [place] % (Auto) Eos % (Auto) Baso % (Auto) Neut # (Auto) Lymph # (Auto) [place] # (Auto) Eos # (Auto) Baso # (Auto) Sodium 142 Potassium 5.0 Chloride 104 Carbon Dioxide 31 H Anion Gap 12 BUN 28 H Creatinine 1.3 Est GFR ( Amer) > 60 Est GFR (Non-Af Amer) 53 POC Glucose (mg/dL) 238 H 141 H Random Glucose 264 H Calcium 8.7 Iron TIBC % Saturation Ferritin 7.7 L 03/28/18 03/28/18 07:31 07:31 WBC 7.1 RBC 2.79 L Hgb 7.3 L Hct 23.9 L MCV 85.6 MCH 26.1 L MCHC 30.5 L RDW 16.1 H Plt Count 200 MPV 10.3 Neut % (Auto) 64.5 Lymph % (Auto) 23.5 [place] % (Auto) 8.2 Eos % (Auto) 2.6 Baso % (Auto) 1.2 Neut # (Auto) 4.6 Lymph # (Auto) 1.7 [place] # (Auto) 0.6 Eos # (Auto) 0.2 Baso # (Auto) 0.1 Sodium 144 Potassium 4.2 Chloride 107 Carbon Dioxide 31 H Anion Gap 10 BUN 24 H Creatinine 1.3 Est GFR ( Amer) > 60 Est GFR (Non-Af Amer) 53 POC Glucose (mg/dL) Random Glucose 135 H Calcium 8.8 Iron TIBC % Saturation Ferritin Assessment & Plan - Assessment and Plan (Free Text) Assessment: Impression; 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 - Date & Time Date: 03/28/18 Time: 12:20
--- NOTE | 2018-03-28 13:13 | CP.PCM.PN ---
Subjective - Date & Time of Evaluation Date of Evaluation: 03/28/18 Time of Evaluation: 13:13 - Subjective Subjective: Patient comfortable no evidence of bleeding H/H stable hemo dynamically stable continue present rx and monitor H/H Objective - Vital Signs/Intake and Output Vital Signs (last 24 hours): Temp Pulse Resp BP Pulse Ox 98.0 F 70 18 154/67 H 97 03/28/18 10:00 03/28/18 10:00 03/28/18 10:00 03/28/18 10:00 03/28/18 10:00 - Medications Medications: Current Medications Albuterol Sulfate (Albuterol 0.083% Inhal Marissa (2.5 Mg/3 Ml) Ud) 2.5 mg INH RQ4 PRN PRN Reason: Shortness of Breath Last Admin: 03/27/18 23:31 Dose: 2.5 mg Amlodipine Besylate (Norvasc) 5 mg PO DAILY [facility] Last Admin: 03/28/18 08:48 Dose: 5 mg Atorvastatin Calcium (Lipitor) 20 mg PO HS [facility] Last Admin: 03/27/18 21:34 Dose: 20 mg Dextrose (Dextrose 50% Inj) 0 ml IV STAT PRN; Protocol PRN Reason: Hypoglycemia Protocol Dextrose (Glutose 15) 0 gm PO ONCE PRN; Protocol PRN Reason: Hypoglycemia Protocol Docusate Sodium (Colace) 100 mg PO BID [facility] Last Admin: 03/28/18 08:45 Dose: 100 mg Folic Acid (Folic Acid) 1 mg PO DAILY [facility] Last Admin: 03/28/18 10:28 Dose: 1 mg Glipizide (Glucotrol Xl) 10 mg PO DAILY [facility] Last Admin: 03/28/18 08:49 Dose: 10 mg Glucagon (Glucagen Diagnostic Kit) 0 mg IM STAT PRN; Protocol PRN Reason: Hypoglycemia Protocol Ceftriaxone Sodium 1 gm/ (Sodium Chloride) 100 mls @ 100 mls/hr IVPB DAILY [facility] Last Admin: 03/28/18 08:44 Dose: 100 mls/hr Azithromycin 500 mg/ Sodium (Chloride) 250 mls @ 125 mls/hr IVPB DAILY [facility] Last Admin: 03/28/18 08:43 Dose: 125 mls/hr Iron Sucrose 200 mg/ Sodium (Chloride) 110 mls @ 110 mls/hr IVPB DAILY [facility] Last Admin: 03/28/18 10:28 Dose: 110 mls/hr Insulin Detemir (Levemir) 36 units SC [facility] Last Admin: 03/27/18 21:33 Dose: 36 units Insulin Human Regular (Humulin R) 0 units SC [facility]; Protocol Last Admin: 03/28/18 06:36 Dose: Not Given Levothyroxine Sodium (Synthroid) 175 mcg PO DAILY@0630 [facility] Last Admin: 03/28/18 06:36 Dose: 175 mcg Metformin HCl (Glucophage) 1,000 mg PO BIDWM [facility] Last Admin: 03/28/18 08:44 Dose: 1,000 mg [id number] Ethyl Esters (Lovaza) 1 gm PO BID [facility] Last Admin: 03/28/18 08:49 Dose: 1 gm Pantoprazole Sodium (Protonix Inj) 40 mg IVP DAILY [facility] Last Admin: 03/28/18 08:50 Dose: 40 mg Thiamine HCl (Vitamin B1 Tab) 100 mg PO DAILY [facility] Last Admin: 03/28/18 08:50 Dose: 100 mg Tiotropium [place] (Spiriva) 18 mcg INH DAILY [facility] Last Admin: 03/28/18 10:28 Dose: 18 mcg - Labs Labs: 03/28/18 07:31 03/28/18 07:31 - Constitutional Appears: Non-toxic, No Acute Distress - Head Exam Head Exam: ATRAUMATIC, NORMAL INSPECTION, NORMOCEPHALIC - Eye Exam Eye Exam: Normal appearance - ENT Exam ENT Exam: Mucous Membranes Moist - Neck Exam Neck Exam: Full ROM - Respiratory Exam Respiratory Exam: Clear to Ausculation Bilateral - Cardiovascular Exam Cardiovascular Exam: REGULAR RHYTHM, +S1, +S2 - GI/Abdominal Exam GI & Abdominal Exam: Soft, Normal Bowel Sounds - Neurological Exam Neurological Exam: Alert, Awake, CN II-XII Intact, Normal Gait, Oriented x3 - Psychiatric Exam Psychiatric exam: Normal Affect - Skin Skin Exam: Pallor Assessment and Plan (1) Anemia Status: Acute (2) Anemia associated with acute blood loss Status: Suspected (3) COPD exacerbation Status: Acute (4) COPD with acute exacerbation Status: Acute (5) Dehydration Status: Acute (6) GI bleed Status: Acute (7) Weakness Status: Acute (8) Coronary arteriosclerosis after coronary artery bypass grafting Status: Chronic (9) Diabetes 1.5, managed as type 2 Status: Chronic (10) Hypertensive cardiomyopathy Status: Chronic
[2018-03-28] MEDS: Insulin Detemir 100 Units/ml Inj SC SCH (22:07)
[2018-03-29 06:19] LABS: BASO # 0.1 K/uL (0.0-0.2); EOS # 0.2 K/uL (0.0-0.7); EOS % 3.3 % (0.0-4.0); HEMOGLOBIN 7.5 g/dL (12.0-18.0); LYMPH # 1.6 K/uL (1.0-4.3); LYMPH % 21.5 % (20.0-40.0); MEAN CELL VOLUME 86.1 fl (80.0-94.0); MEAN CORPUSCULAR HEMOGLOBIN 26.4 pg (27.0-31.0); MEAN CORPUSCULAR HGB CONC 30.7 g/dL (33.0-37.0); MEAN PLATELET VOLUME 10.2 fl (7.2-11.7); MONO # 0.8 K/uL (0.0-0.8); NEUT # 4.8 K/uL (1.8-7.0); NEUT % 64.2 % (50.0-75.0); NRBC % 0.7 % (0.0-0.0); RBC 2.84 Mil/uL (4.40-5.90); RED CELL DISTRIBUTION WIDTH 16.4 % (11.5-14.5); WHITE BLOOD COUNT 7.5 K/uL (4.8-10.8)
[2018-03-29] MEDS: Levothyroxine 175 MCG TAB PO SCH (06:35)
[2018-03-29 06:40] LABS: BLOOD UREA NITROGEN 24 mg/dl (9-20); CALCIUM 9.3 mg/dL (8.4-10.2); GFR NON-AFRICAN AMERICAN 53
[2018-03-29] MEDS: Insulin Regular 100 units/ml SC SCH ×4 (08:24→21:37)
[2018-03-29] MEDS: GlipiZIDE 10 mg SR Tab PO SCH (08:41)
[2018-03-29] MEDS: Tiotropium 18 mcg Cap For Inhalation INH SCH (08:42)
[2018-03-29] MEDS: Omega-3-Acid Ethyl Esters 1 GM Cap PO SCH ×2 (08:42→17:01)
--- NOTE | 2018-03-29 14:43 | CP.PCM.PN ---
Subjective - Date & Time of Evaluation Date of Evaluation: 03/29/18 Time of Evaluation: 08:30 - Subjective Subjective: Patient comfortable Objective - Vital Signs/Intake and Output Vital Signs (last 24 hours): Temp Pulse Resp BP Pulse Ox 98.3 F 75 18 135/57 L 96 03/29/18 08:29 03/29/18 08:42 03/29/18 08:29 03/29/18 08:42 03/29/18 08:29 - Medications Medications: Current Medications Albuterol Sulfate (Albuterol 0.083% Inhal [place]issa (2.5 Mg/3 Ml) Ud) 2.5 mg INH RQ4 PRN PRN Reason: Shortness of Breath Last Admin: 03/27/18 23:31 Dose: 2.5 mg Amlodipine Besylate (Norvasc) 5 mg PO DAILY [facility] Last Admin: 03/29/18 08:42 Dose: 5 mg Atorvastatin Calcium (Lipitor) 20 mg PO HS [facility] Last Admin: 03/28/18 22:08 Dose: 20 mg Dextrose (Dextrose 50% Inj) 0 ml IV STAT PRN; Protocol PRN Reason: Hypoglycemia Protocol Dextrose (Glutose 15) 0 gm PO ONCE PRN; Protocol PRN Reason: Hypoglycemia Protocol Docusate Sodium (Colace) 100 mg PO BID [facility] Last Admin: 03/29/18 08:41 Dose: 100 mg Folic Acid (Folic Acid) 1 mg PO DAILY [facility] Last Admin: 03/29/18 08:41 Dose: 1 mg Glipizide (Glucotrol Xl) 10 mg PO DAILY [facility] Last Admin: 03/29/18 08:41 Dose: 10 mg Glucagon (Glucagen Diagnostic Kit) 0 mg IM STAT PRN; Protocol PRN Reason: Hypoglycemia Protocol Ceftriaxone Sodium 1 gm/ (Sodium Chloride) 100 mls @ 100 mls/hr IVPB DAILY@1700 [facility] Iron Sucrose 200 mg/ Sodium (Chloride) 110 mls @ 110 mls/hr IVPB DAILY@1600 [facility] Azithromycin 500 mg/ Sodium (Chloride) 250 mls @ 125 mls/hr IVPB DAILY@0500 [facility] Insulin Detemir (Levemir) 36 units SC [facility] Last Admin: 03/28/18 22:07 Dose: 36 units Insulin Human Regular (Humulin R) 0 units SC [facility]; Protocol Last Admin: 03/29/18 12:19 Dose: Not Given Levothyroxine Sodium (Synthroid) 175 mcg PO DAILY@0630 [facility] Last Admin: 03/29/18 06:35 Dose: 175 mcg Metformin HCl (Glucophage) 1,000 mg PO BIDWM [facility] Last Admin: 03/29/18 08:41 Dose: 1,000 mg [id number] Ethyl Esters (Lovaza) 1 gm PO BID [facility] Last Admin: 03/29/18 08:42 Dose: 1 gm Pantoprazole Sodium (Protonix Inj) 40 mg IVP DAILY [facility] Last Admin: 03/29/18 08:42 Dose: 40 mg Thiamine HCl (Vitamin B1 Tab) 100 mg PO DAILY [facility] Last Admin: 03/29/18 08:42 Dose: 100 mg Tiotropium [place] (Spiriva) 18 mcg INH DAILY [facility] Last Admin: 03/29/18 08:42 Dose: 18 mcg - Labs Labs: 03/29/18 05:50 03/29/18 05:50 - Constitutional Appears: Non-toxic - Head Exam Head Exam: ATRAUMATIC, NORMAL INSPECTION, NORMOCEPHALIC - Eye Exam Eye Exam: Normal appearance Pupil Exam: PERRL - ENT Exam ENT Exam: Mucous Membranes Moist - Neck Exam Neck Exam: Full ROM - Respiratory Exam Respiratory Exam: Decreased Breath Sounds - Cardiovascular Exam Cardiovascular Exam: REGULAR RHYTHM, +S1, +S2 - GI/Abdominal Exam GI & Abdominal Exam: Normal Bowel Sounds - Extremities Exam Extremities Exam: Normal Inspection - Neurological Exam Neurological Exam: Alert, Awake, Normal Gait, Oriented x3 - Psychiatric Exam Psychiatric exam: Normal Affect - Skin Skin Exam: Normal Color Assessment and Plan (1) Anemia Status: Acute (2) Anemia associated with acute blood loss Status: Suspected (3) COPD exacerbation Status: Acute (4) COPD with acute exacerbation Status: Acute (5) Dehydration Status: Acute (6) GI bleed Status: Acute (7) Weakness Status: Acute (8) Coronary arteriosclerosis after coronary artery bypass grafting Status: Chronic (9) Diabetes 1.5, managed as type 2 Status: Chronic (10) Hypertensive cardiomyopathy Status: Chronic - Assessment and Plan (Free Text) Plan: Continue present rx.
[2018-03-29] MEDS ORDERED: Azithromycin 500 MG in Sodium Chloride 0.9% 250 ML IVPB SCH (17:00)
[2018-03-29] MEDS: Insulin Detemir 100 Units/ml Inj SC SCH (21:40)
[2018-03-30] MEDS: Azithromycin 500 MG in Sodium Chloride 0.9% 250 ML IVPB SCH (05:00)
[2018-03-30] MEDS: Levothyroxine 175 MCG TAB PO SCH (05:57)
[2018-03-30] MEDS: Insulin Regular 100 units/ml SC SCH ×4 (06:45→22:18)
[2018-03-30] MEDS: Omega-3-Acid Ethyl Esters 1 GM Cap PO SCH ×2 (09:23→16:08)
[2018-03-30] MEDS: Tiotropium 18 mcg Cap For Inhalation INH SCH (09:24)
[2018-03-30] MEDS: GlipiZIDE 10 mg SR Tab PO SCH (09:25)
[2018-03-30 10:17] LABS: BASO # 0.1 K/uL (0.0-0.2); BASO % 0.6 % (0.0-2.0); EOS # 0.2 K/uL (0.0-0.7); EOS % 2.7 % (0.0-4.0); LYMPH # 2.3 K/uL (1.0-4.3); LYMPH % 27.1 % (20.0-40.0); MEAN CELL VOLUME 87.1 fl (80.0-94.0); MEAN CORPUSCULAR HEMOGLOBIN 26.2 pg (27.0-31.0); MEAN PLATELET VOLUME 10.5 fl (7.2-11.7); MONO # 0.8 K/uL (0.0-0.8); NEUT # 5.2 K/uL (1.8-7.0); NEUT % 60.6 % (50.0-75.0); NRBC % 0.7 % (0.0-0.0); RBC 3.05 Mil/uL (4.40-5.90); RED CELL DISTRIBUTION WIDTH 16.2 % (11.5-14.5); WHITE BLOOD COUNT 8.6 K/uL (4.8-10.8)
[2018-03-30 10:21] LABS: CALCIUM 9.1 mg/dL (8.4-10.2)
--- NOTE | 2018-03-30 11:19 | CP.PCM.CON ---
History of Present Illness - History of Present Illness History of Present Illness: Patient is being seen in follow up from acute medical admission for pneumonia and hypoxemia. He has been treated with antibiotics and aerosol therapy with good clinical improvement. He has been discharged to TCU for continued care and iron infusion because of persistent anemia. He was seen in his room, comfortable, OOB and in good spirits. Past Patient History - Past Medical History & Family History Past Medical History?: Yes - Past Social History Smoking Status: Former Smoker Chewing Tobacco Use: No Cigar Use: No Alcohol: Social Drugs: Denies Home Situation {Lives}: With Family - CARDIAC Hx Cardiac Disorders: Yes Hx Congestive Heart Failure: Yes Hx Hypercholesterolemia: Yes Hx Hypertension: Yes - PULMONARY Hx Chronic Obstructive Pulmonary Disease (COPD): Yes Hx Pneumonia: Yes - NEUROLOGICAL Hx Neurological Disorder: No - HEENT Hx HEENT Problems: No - RENAL Hx Chronic Kidney Disease: Yes - ENDOCRINE/METABOLIC Hx Diabetes Mellitus Type 1: Yes Hx Diabetes Mellitus Type 2: Yes Hx Hypothyroidism: Yes - HEMATOLOGICAL/ONCOLOGICAL Hx Anemia: Yes Hx Human Immunodeficiency Virus (HIV): No - INTEGUMENTARY Hx Dermatological Problems: No - MUSCULOSKELETAL/RHEUMATOLOGICAL Hx Falls: Yes - GASTROINTESTINAL Hx Gastritis: Yes Other/Comment: colonic AVMs - GENITOURINARY/GYNECOLOGICAL Hx Prostate Cancer: Yes - PSYCHIATRIC Hx Psychophysiologic Disorder: No Hx Substance Use: No - SURGICAL HISTORY Hx Coronary Stent: Yes Hx Vascular Surgery: Yes Other/Comment: prostatectomy - ANESTHESIA Hx Anesthesia: Yes Hx Anesthesia Reactions: No Hx Malignant Hyperthermia: No Meds Allergies/Adverse Reactions: Allergies Allergy/AdvReac Type Severity Reaction Status Date / Time No Known Allergies Allergy Verified 03/25/18 17:37 - Medications Medications: Current Medications Albuterol Sulfate (Albuterol 0.083% Inhal Marissa (2.5 Mg/3 Ml) Ud) 2.5 mg INH RQ4 PRN PRN Reason: Shortness of Breath Last Admin: 03/27/18 23:31 Dose: 2.5 mg Amlodipine Besylate (Norvasc) 5 mg PO DAILY [facility] Last Admin: 03/30/18 09:25 Dose: 5 mg Atorvastatin Calcium (Lipitor) 20 mg PO HS [facility] Last Admin: 03/29/18 21:40 Dose: 20 mg Dextrose (Dextrose 50% Inj) 0 ml IV STAT PRN; Protocol PRN Reason: Hypoglycemia Protocol Dextrose (Glutose 15) 0 gm PO ONCE PRN; Protocol PRN Reason: Hypoglycemia Protocol Docusate Sodium (Colace) 100 mg PO BID [facility] Last Admin: 03/30/18 09:23 Dose: 100 mg Folic Acid (Folic Acid) 1 mg PO DAILY [facility] Last Admin: 03/30/18 09:23 Dose: 1 mg Glipizide (Glucotrol Xl) 10 mg PO DAILY [facility] Last Admin: 03/30/18 09:25 Dose: 10 mg Glucagon (Glucagen Diagnostic Kit) 0 mg IM STAT PRN; Protocol PRN Reason: Hypoglycemia Protocol Ceftriaxone Sodium 1 gm/ (Sodium Chloride) 100 mls @ 100 mls/hr IVPB DAILY@1700 [facility] Last Admin: 03/29/18 18:16 Dose: 100 mls/hr Iron Sucrose 200 mg/ Sodium (Chloride) 110 mls @ 110 mls/hr IVPB DAILY@1600 [facility] Last Admin: 03/29/18 16:59 Dose: 110 mls/hr Azithromycin 500 mg/ Sodium (Chloride) 250 mls @ 125 mls/hr IVPB DAILY@0500 [facility] Last Admin: 03/30/18 05:00 Dose: 125 mls/hr Insulin Detemir (Levemir) 36 units SC HS [facility] Last Admin: 03/29/18 21:40 Dose: 36 units Insulin Human Regular (Humulin R) 0 units SC [facility]; Protocol Last Admin: 03/30/18 06:45 Dose: Not Given Levothyroxine Sodium (Synthroid) 175 mcg PO DAILY@0630 [facility] Last Admin: 03/30/18 05:57 Dose: 175 mcg Metformin HCl (Glucophage) 1,000 mg PO BIDWM [facility] Last Admin: 03/30/18 09:24 Dose: 1,000 mg Neapp-6-Ndgn Ethyl Esters (Lovaza) 1 gm PO BID [facility] Last Admin: 03/30/18 09:23 Dose: 1 gm Pantoprazole Sodium (Protonix Inj) 40 mg IVP DAILY [facility] Last Admin: 03/30/18 09:23 Dose: 40 mg Thiamine HCl (Vitamin B1 Tab) 100 mg PO DAILY [facility] Last Admin: 03/30/18 09:24 Dose: 100 mg Tiotropium [place] (Spiriva) 18 mcg INH DAILY [facility] Last Admin: 03/30/18 09:24 Dose: 18 mcg Physical Exam - Additional Findings Additional findings: Obese male, in no acute distress. Walking about with physical therapy. Dependant edema ++ bilaterally. Healed surgical scar LLE. No cyanosis, no calf tenderness. Pharynx pink and moist w/o exudate. Neck supple, trachea midline, no visible JVD. No dullness on chest percussion. Breath sounds are diminished bilaterally. No audible wheezes, few dry rales posteriorly in bases. Heart sounds are distant, regular rhythm. Abdomen is obese and non-tender with good BS. Results - Vital Signs Recent Vital Signs: Last Vital Signs Temp 97.7 F 03/30/18 09:48 Pulse 78 03/30/18 09:48 Resp 20 03/30/18 09:48 BP 155/61 H 03/30/18 09:48 Pulse Ox 97 03/30/18 09:48 - Labs Result Diagrams: 04/03/18 07:30 04/01/18 06:05 Labs: Laboratory Results - last 24 hr 03/29/18 03/29/18 03/30/18 16:20 21:06 05:41 WBC RBC Hgb Hct MCV MCH MCHC RDW Plt Count MPV Neut % (Auto) Lymph % (Auto) Miller % (Auto) Eos % (Auto) Baso % (Auto) Neut # (Auto) Lymph # (Auto) Miller # (Auto) Eos # (Auto) Baso # (Auto) Sodium Potassium Chloride Carbon Dioxide Anion Gap BUN Creatinine Est GFR ( Amer) Est GFR (Non-Af Amer) POC Glucose (mg/dL) 92 122 H 76 Random Glucose Calcium 03/30/18 03/30/18 09:57 09:57 WBC 8.6 RBC 3.05 L Hgb 8.0 L Hct 26.6 L MCV 87.1 MCH 26.2 L MCHC 30.0 L RDW 16.2 H Plt Count 244 MPV 10.5 Neut % (Auto) 60.6 Lymph % (Auto) 27.1 Miller % (Auto) 9.0 Eos % (Auto) 2.7 Baso % (Auto) 0.6 Neut # (Auto) 5.2 Lymph # (Auto) 2.3 Miller # (Auto) 0.8 Eos # (Auto) 0.2 Baso # (Auto) 0.1 Sodium 141 Potassium 4.3 Chloride 103 Carbon Dioxide 31 H Anion Gap 11 BUN 22 H Creatinine 1.4 Est GFR ( Amer) 59 Est GFR (Non-Af Amer) 49 POC Glucose (mg/dL) Random Glucose 166 H Calcium 9.1 Assessment & Plan (1) COPD with acute exacerbation Status: Resolved Priority: High (2) Pneumonia Status: Resolved Priority: High (3) Anemia Status: Acute Priority: High - Assessment and Plan (Free Text) Plan: Continue current regimen. - Date & Time Date: 03/28/18 Time: 11:00
--- NOTE | 2018-03-30 12:38 | CP.PCM.PN ---
Subjective - Date & Time of Evaluation Date of Evaluation: 03/30/18 Time of Evaluation: 12:38 - Subjective Subjective: responding to rx Objective - Vital Signs/Intake and Output Vital Signs (last 24 hours): Temp Pulse Resp BP Pulse Ox 97.7 F 78 20 155/61 H 97 03/30/18 09:48 03/30/18 09:48 03/30/18 09:48 03/30/18 09:48 03/30/18 09:48 - Medications Medications: Current Medications Albuterol Sulfate (Albuterol 0.083% Inhal Marissa (2.5 Mg/3 Ml) Ud) 2.5 mg INH RQ4 PRN PRN Reason: Shortness of Breath Last Admin: 03/27/18 23:31 Dose: 2.5 mg Amlodipine Besylate (Norvasc) 5 mg PO DAILY [facility] Last Admin: 03/30/18 09:25 Dose: 5 mg Atorvastatin Calcium (Lipitor) 20 mg PO HS [facility] Last Admin: 03/29/18 21:40 Dose: 20 mg Dextrose (Dextrose 50% Inj) 0 ml IV STAT PRN; Protocol PRN Reason: Hypoglycemia Protocol Dextrose (Glutose 15) 0 gm PO ONCE PRN; Protocol PRN Reason: Hypoglycemia Protocol Docusate Sodium (Colace) 100 mg PO BID [facility] Last Admin: 03/30/18 09:23 Dose: 100 mg Folic Acid (Folic Acid) 1 mg PO DAILY [facility] Last Admin: 03/30/18 09:23 Dose: 1 mg Glipizide (Glucotrol Xl) 10 mg PO DAILY [facility] Last Admin: 03/30/18 09:25 Dose: 10 mg Glucagon (Glucagen Diagnostic Kit) 0 mg IM STAT PRN; Protocol PRN Reason: Hypoglycemia Protocol Ceftriaxone Sodium 1 gm/ (Sodium Chloride) 100 mls @ 100 mls/hr IVPB DAILY@1700 [facility] Last Admin: 03/29/18 18:16 Dose: 100 mls/hr Iron Sucrose 200 mg/ Sodium (Chloride) 110 mls @ 110 mls/hr IVPB DAILY@1600 [facility] Last Admin: 03/29/18 16:59 Dose: 110 mls/hr Azithromycin 500 mg/ Sodium (Chloride) 250 mls @ 125 mls/hr IVPB DAILY@0500 [facility] Last Admin: 03/30/18 05:00 Dose: 125 mls/hr Insulin Detemir (Levemir) 36 units SC [facility] Last Admin: 03/29/18 21:40 Dose: 36 units Insulin Human Regular (Humulin R) 0 units SC [facility]; Protocol Last Admin: 03/30/18 06:45 Dose: Not Given Levothyroxine Sodium (Synthroid) 175 mcg PO DAILY@0630 [facility] Last Admin: 03/30/18 05:57 Dose: 175 mcg Metformin HCl (Glucophage) 1,000 mg PO BIDWM [facility] Last Admin: 03/30/18 09:24 Dose: 1,000 mg Uaxqh-1-Mlkx Ethyl Esters (Lovaza) 1 gm PO BID [facility] Last Admin: 03/30/18 09:23 Dose: 1 gm Pantoprazole Sodium (Protonix Inj) 40 mg IVP DAILY [facility] Last Admin: 03/30/18 09:23 Dose: 40 mg Thiamine HCl (Vitamin B1 Tab) 100 mg PO DAILY [facility] Last Admin: 03/30/18 09:24 Dose: 100 mg Tiotropium [place] (Spiriva) 18 mcg INH DAILY [facility] Last Admin: 03/30/18 09:24 Dose: 18 mcg - Labs Labs: 03/30/18 09:57 03/30/18 09:57 - Constitutional Appears: Chronically Ill - Head Exam Head Exam: ATRAUMATIC, NORMAL INSPECTION, NORMOCEPHALIC - Eye Exam Eye Exam: Normal appearance - ENT Exam ENT Exam: Mucous Membranes Moist - Neck Exam Neck Exam: Full ROM - Respiratory Exam Respiratory Exam: Decreased Breath Sounds - Cardiovascular Exam Cardiovascular Exam: REGULAR RHYTHM, +S1, +S2 - GI/Abdominal Exam GI & Abdominal Exam: Normal Bowel Sounds - Extremities Exam Extremities Exam: Normal Inspection - Neurological Exam Neurological Exam: Alert, Awake, CN II-XII Intact, Oriented x3 - Psychiatric Exam Psychiatric exam: Normal Affect - Skin Skin Exam: Normal Color Assessment and Plan (1) Anemia Status: Acute (2) Anemia associated with acute blood loss Status: Suspected (3) COPD exacerbation Status: Acute (4) COPD with acute exacerbation Status: Resolved (5) Dehydration Status: Acute (6) GI bleed Status: Acute (7) Weakness Status: Acute (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
[2018-03-30] MEDS: Insulin Detemir 100 Units/ml Inj SC SCH (22:16)
[2018-03-31] MEDS: Azithromycin 500 MG in Sodium Chloride 0.9% 250 ML IVPB SCH (05:42)
[2018-03-31] MEDS: Levothyroxine 175 MCG TAB PO SCH (06:57)
[2018-03-31] MEDS: Insulin Regular 100 units/ml SC SCH ×4 (07:55→22:24)
[2018-03-31] MEDS: Omega-3-Acid Ethyl Esters 1 GM Cap PO SCH ×2 (08:34→16:56)
[2018-03-31] MEDS: GlipiZIDE 10 mg SR Tab PO SCH (08:34)
[2018-03-31] MEDS: Tiotropium 18 mcg Cap For Inhalation INH SCH (08:34)
[2018-03-31 08:52] LABS: BASO # 0.1 K/uL (0.0-0.2); BASO % 0.8 % (0.0-2.0); EOS # 0.3 K/uL (0.0-0.7); EOS % 3.2 % (0.0-4.0); HEMOGLOBIN 7.8 g/dL (12.0-18.0); LYMPH # 1.9 K/uL (1.0-4.3); LYMPH % 23.6 % (20.0-40.0); MEAN CELL VOLUME 85.7 fl (80.0-94.0); MEAN CORPUSCULAR HEMOGLOBIN 26.5 pg (27.0-31.0); MEAN PLATELET VOLUME 10.5 fl (7.2-11.7); MONO # 0.8 K/uL (0.0-0.8); MONO % 10.1 % (0.0-10.0); NEUT # 4.9 K/uL (1.8-7.0); NEUT % 62.3 % (50.0-75.0); NRBC % 0.9 % (0.0-0.0); RBC 2.94 Mil/uL (4.40-5.90); RED CELL DISTRIBUTION WIDTH 16.6 % (11.5-14.5); WHITE BLOOD COUNT 7.9 K/uL (4.8-10.8)
[2018-03-31 08:54] LABS: CALCIUM 8.9 mg/dL (8.4-10.2)
--- NOTE | 2018-03-31 09:47 | CP.PCM.PN ---
Subjective - Date & Time of Evaluation Date of Evaluation: 03/31/18 Time of Evaluation: 09:47 - Subjective Subjective: Appears comfortable. Participating with physical therapy. Vital signs remain stable. Breath sounds are diminished bilaterally. No audible wheezing, rare dry rales. Heart sounds are distant, regular. Continue present regimen. Objective - Vital Signs/Intake and Output Vital Signs (last 24 hours): Temp Pulse Resp BP Pulse Ox 98.6 F 72 18 122/79 97 03/31/18 08:47 03/31/18 08:47 03/31/18 08:47 03/31/18 08:47 03/31/18 08:47 - Medications Medications: Current Medications Albuterol Sulfate (Albuterol 0.083% Inhal Marissa (2.5 Mg/3 Ml) Ud) 2.5 mg INH RQ4 PRN PRN Reason: Shortness of Breath Last Admin: 03/27/18 23:31 Dose: 2.5 mg Amlodipine Besylate (Norvasc) 5 mg PO DAILY [facility] Last Admin: 03/31/18 08:34 Dose: 5 mg Atorvastatin Calcium (Lipitor) 20 mg PO HS [facility] Last Admin: 03/30/18 23:15 Dose: 20 mg Dextrose (Dextrose 50% Inj) 0 ml IV STAT PRN; Protocol PRN Reason: Hypoglycemia Protocol Dextrose (Glutose 15) 0 gm PO ONCE PRN; Protocol PRN Reason: Hypoglycemia Protocol Docusate Sodium (Colace) 100 mg PO BID [facility] Last Admin: 03/31/18 08:33 Dose: 100 mg Folic Acid (Folic Acid) 1 mg PO DAILY [facility] Last Admin: 03/31/18 08:33 Dose: 1 mg Glipizide (Glucotrol Xl) 10 mg PO DAILY [facility] Last Admin: 03/31/18 08:34 Dose: 10 mg Glucagon (Glucagen Diagnostic Kit) 0 mg IM STAT PRN; Protocol PRN Reason: Hypoglycemia Protocol Ceftriaxone Sodium 1 gm/ (Sodium Chloride) 100 mls @ 100 mls/hr IVPB DAILY@1700 [facility] Last Admin: 03/30/18 16:09 Dose: 100 mls/hr Iron Sucrose 200 mg/ Sodium (Chloride) 110 mls @ 110 mls/hr IVPB DAILY@1600 [facility] Last Admin: 03/30/18 16:09 Dose: 110 mls/hr Azithromycin 500 mg/ Sodium (Chloride) 250 mls @ 125 mls/hr IVPB DAILY@0500 [facility] Last Admin: 03/31/18 05:42 Dose: Not Given Insulin Detemir (Levemir) 34 units SC HS [facility] Last Admin: 03/30/18 22:16 Dose: 34 u Insulin Human Regular (Humulin R) 0 units SC ACHS [facility]; Protocol Last Admin: 03/31/18 07:55 Dose: Not Given Levothyroxine Sodium (Synthroid) 175 mcg PO DAILY@0630 [facility] Last Admin: 03/31/18 06:57 Dose: 175 mcg Metformin HCl (Glucophage) 1,000 mg PO BIDWM [facility] Last Admin: 03/31/18 08:33 Dose: 1,000 mg Wimvd-5-Ifwk Ethyl Esters (Lovaza) 1 gm PO BID [facility] Last Admin: 03/31/18 08:34 Dose: 1 gm Pantoprazole Sodium (Protonix Inj) 40 mg IVP DAILY [facility] Last Admin: 03/31/18 08:34 Dose: 40 mg Fluticasone/Salmeterol (Advair Diskus 250/50) 1 puff IH BID [facility] Thiamine HCl (Vitamin B1 Tab) 100 mg PO DAILY [facility] Last Admin: 03/31/18 08:34 Dose: 100 mg Tiotropium [place] (Spiriva) 18 mcg INH DAILY [facility] Last Admin: 03/31/18 08:34 Dose: 18 mcg - Labs Labs: 03/31/18 08:37 03/31/18 08:37 Assessment and Plan (1) COPD with acute exacerbation Status: Resolved (2) Pneumonia Status: Resolved (3) Anemia Status: Acute
--- NOTE | 2018-03-31 10:57 | CP.PCM.PN ---
Subjective - Date & Time of Evaluation Date of Evaluation: 03/31/18 Time of Evaluation: 10:54 - Subjective Subjective: Pt has no complaints and is in a god mood. He doing fairly well at the physical therapy. He is on IV venofer for the iron deficiency anemia, Today the HGB ewas 7.8. He can be discharged tomorrow if the count goes up above 8.0gms Objective - Vital Signs/Intake and Output Vital Signs (last 24 hours): Temp Pulse Resp BP Pulse Ox 98.6 F 72 18 122/79 97 03/31/18 08:47 03/31/18 08:47 03/31/18 08:47 03/31/18 08:47 03/31/18 08:47 - Medications Medications: Current Medications Albuterol Sulfate (Albuterol 0.083% Inhal Marissa (2.5 Mg/3 Ml) Ud) 2.5 mg INH RQ4 PRN PRN Reason: Shortness of Breath Last Admin: 03/27/18 23:31 Dose: 2.5 mg Amlodipine Besylate (Norvasc) 5 mg PO DAILY [facility] Last Admin: 03/31/18 08:34 Dose: 5 mg Atorvastatin Calcium (Lipitor) 20 mg PO HS [facility] Last Admin: 03/30/18 23:15 Dose: 20 mg Dextrose (Dextrose 50% Inj) 0 ml IV STAT PRN; Protocol PRN Reason: Hypoglycemia Protocol Dextrose (Glutose 15) 0 gm PO ONCE PRN; Protocol PRN Reason: Hypoglycemia Protocol Docusate Sodium (Colace) 100 mg PO BID [facility] Last Admin: 03/31/18 08:33 Dose: 100 mg Folic Acid (Folic Acid) 1 mg PO DAILY [facility] Last Admin: 03/31/18 08:33 Dose: 1 mg Glipizide (Glucotrol Xl) 10 mg PO DAILY [facility] Last Admin: 03/31/18 08:34 Dose: 10 mg Glucagon (Glucagen Diagnostic Kit) 0 mg IM STAT PRN; Protocol PRN Reason: Hypoglycemia Protocol Ceftriaxone Sodium 1 gm/ (Sodium Chloride) 100 mls @ 100 mls/hr IVPB DAILY@1700 [facility] Last Admin: 03/30/18 16:09 Dose: 100 mls/hr Iron Sucrose 200 mg/ Sodium (Chloride) 110 mls @ 110 mls/hr IVPB DAILY@1600 [facility] Last Admin: 03/30/18 16:09 Dose: 110 mls/hr Azithromycin 500 mg/ Sodium (Chloride) 250 mls @ 125 mls/hr IVPB DAILY@0500 [facility] Last Admin: 03/31/18 05:42 Dose: Not Given Insulin Detemir (Levemir) 34 units SC HS [facility] Last Admin: 03/30/18 22:16 Dose: 34 u Insulin Human Regular (Humulin R) 0 units SC ACHS [facility]; Protocol Last Admin: 03/31/18 07:55 Dose: Not Given Levothyroxine Sodium (Synthroid) 175 mcg PO DAILY@0630 [facility] Last Admin: 03/31/18 06:57 Dose: 175 mcg Metformin HCl (Glucophage) 1,000 mg PO BIDWM [facility] Last Admin: 03/31/18 08:33 Dose: 1,000 mg Vwoyr-7-Hdhs Ethyl Esters (Lovaza) 1 gm PO BID [facility] Last Admin: 03/31/18 08:34 Dose: 1 gm Pantoprazole Sodium (Protonix Inj) 40 mg IVP DAILY [facility] Last Admin: 03/31/18 08:34 Dose: 40 mg Fluticasone/Salmeterol (Advair Diskus 250/50) 1 puff IH BID [facility] Thiamine HCl (Vitamin B1 Tab) 100 mg PO DAILY [facility] Last Admin: 03/31/18 08:34 Dose: 100 mg Tiotropium [place] (Spiriva) 18 mcg INH DAILY [facility] Last Admin: 03/31/18 08:34 Dose: 18 mcg - Labs Labs: 03/31/18 08:37 03/31/18 08:37
--- NOTE | 2018-03-31 11:58 | CP.PCM.PN ---
Subjective - Date & Time of Evaluation Date of Evaluation: 03/31/18 Time of Evaluation: 13:30 - Subjective Subjective: comfortable H/H stable. Continue present rx. Objective - Vital Signs/Intake and Output Vital Signs (last 24 hours): Temp Pulse Resp BP Pulse Ox 98.6 F 72 18 122/79 97 03/31/18 08:47 03/31/18 08:47 03/31/18 08:47 03/31/18 08:47 03/31/18 08:47 - Medications Medications: Current Medications Albuterol Sulfate (Albuterol 0.083% Inhal Marissa (2.5 Mg/3 Ml) Ud) 2.5 mg INH RQ4 PRN PRN Reason: Shortness of Breath Last Admin: 03/27/18 23:31 Dose: 2.5 mg Amlodipine Besylate (Norvasc) 5 mg PO DAILY [facility] Last Admin: 03/31/18 08:34 Dose: 5 mg Atorvastatin Calcium (Lipitor) 20 mg PO HS [facility] Last Admin: 03/30/18 23:15 Dose: 20 mg Dextrose (Dextrose 50% Inj) 0 ml IV STAT PRN; Protocol PRN Reason: Hypoglycemia Protocol Dextrose (Glutose 15) 0 gm PO ONCE PRN; Protocol PRN Reason: Hypoglycemia Protocol Docusate Sodium (Colace) 100 mg PO BID [facility] Last Admin: 03/31/18 08:33 Dose: 100 mg Folic Acid (Folic Acid) 1 mg PO DAILY [facility] Last Admin: 03/31/18 08:33 Dose: 1 mg Glipizide (Glucotrol Xl) 10 mg PO DAILY [facility] Last Admin: 03/31/18 08:34 Dose: 10 mg Glucagon (Glucagen Diagnostic Kit) 0 mg IM STAT PRN; Protocol PRN Reason: Hypoglycemia Protocol Ceftriaxone Sodium 1 gm/ (Sodium Chloride) 100 mls @ 100 mls/hr IVPB DAILY@1700 [facility] Last Admin: 03/30/18 16:09 Dose: 100 mls/hr Iron Sucrose 200 mg/ Sodium (Chloride) 110 mls @ 110 mls/hr IVPB DAILY@1600 [facility] Last Admin: 03/30/18 16:09 Dose: 110 mls/hr Azithromycin 500 mg/ Sodium (Chloride) 250 mls @ 125 mls/hr IVPB DAILY@0500 [facility] Last Admin: 03/31/18 05:42 Dose: Not Given Insulin Detemir (Levemir) 34 units SC [facility] Last Admin: 03/30/18 22:16 Dose: 34 u Insulin Human Regular (Humulin R) 0 units SC [facility]; Protocol Last Admin: 03/31/18 07:55 Dose: Not Given Levothyroxine Sodium (Synthroid) 175 mcg PO DAILY@0630 [facility] Last Admin: 03/31/18 06:57 Dose: 175 mcg Metformin HCl (Glucophage) 1,000 mg PO BIDWM [facility] Last Admin: 03/31/18 08:33 Dose: 1,000 mg Yfxzz-3-Sqly Ethyl Esters (Lovaza) 1 gm PO BID [facility] Last Admin: 03/31/18 08:34 Dose: 1 gm Pantoprazole Sodium (Protonix Inj) 40 mg IVP DAILY [facility] Last Admin: 03/31/18 08:34 Dose: 40 mg Fluticasone/Salmeterol (Advair Diskus 250/50) 1 puff IH BID [facility] Thiamine HCl (Vitamin B1 Tab) 100 mg PO DAILY [facility] Last Admin: 03/31/18 08:34 Dose: 100 mg Tiotropium [place] (Spiriva) 18 mcg INH DAILY [facility] Last Admin: 03/31/18 08:34 Dose: 18 mcg - Labs Labs: 03/31/18 08:37 03/31/18 08:37 - Constitutional Appears: Chronically Ill - Head Exam Head Exam: ATRAUMATIC, NORMAL INSPECTION, NORMOCEPHALIC - Eye Exam Eye Exam: Normal appearance - ENT Exam ENT Exam: Mucous Membranes Moist - Neck Exam Neck Exam: Full ROM - Respiratory Exam Respiratory Exam: Decreased Breath Sounds, Clear to Ausculation Bilateral - Cardiovascular Exam Cardiovascular Exam: REGULAR RHYTHM, +S1, +S2 - GI/Abdominal Exam GI & Abdominal Exam: Normal Bowel Sounds - Extremities Exam Extremities Exam: Normal Inspection - Neurological Exam Neurological Exam: Alert, Awake, CN II-XII Intact, Oriented x3 - Psychiatric Exam Psychiatric exam: Normal Affect - Skin Skin Exam: Normal Color Assessment and Plan (1) Anemia Status: Acute (2) Anemia associated with acute blood loss Status: Suspected (3) COPD exacerbation Status: Acute (4) COPD with acute exacerbation Status: Resolved (5) Dehydration Status: Acute (6) GI bleed Status: Acute (7) Weakness Status: Acute (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
[2018-03-31] MEDS ORDERED: Azithromycin 500 MG in Sodium Chloride 0.9% 250 ML IVPB STA (12:36)
[2018-03-31] MEDS: Fluticasone-Salmeterol 250-50mcg Diskus IH SCH (16:56)
[2018-03-31] MEDS: Insulin Detemir 100 Units/ml Inj SC SCH (22:20)
[2018-04-01] MEDS: Azithromycin 500 MG in Sodium Chloride 0.9% 250 ML IVPB SCH (05:15)
[2018-04-01 06:17] LABS: BASO # 0.1 K/uL (0.0-0.2); BASO % 0.9 % (0.0-2.0); EOS # 0.2 K/uL (0.0-0.7); EOS % 2.2 % (0.0-4.0); HEMOGLOBIN 7.7 g/dL (12.0-18.0); LYMPH # 1.5 K/uL (1.0-4.3); LYMPH % 16.4 % (20.0-40.0); MEAN CELL VOLUME 86.9 fl (80.0-94.0); MEAN CORPUSCULAR HEMOGLOBIN 26.7 pg (27.0-31.0); MEAN CORPUSCULAR HGB CONC 30.7 g/dL (33.0-37.0); MEAN PLATELET VOLUME 9.9 fl (7.2-11.7); MONO # 0.9 K/uL (0.0-0.8); MONO % 10.3 % (0.0-10.0); NEUT # 6.3 K/uL (1.8-7.0); NEUT % 70.2 % (50.0-75.0); NRBC % 0.6 % (0.0-0.0); RBC 2.89 Mil/uL (4.40-5.90); RED CELL DISTRIBUTION WIDTH 16.8 % (11.5-14.5)
[2018-04-01] MEDS: Levothyroxine 175 MCG TAB PO SCH (06:41)
[2018-04-01] MEDS: Insulin Regular 100 units/ml SC SCH ×4 (06:59→21:35)
[2018-04-01 07:14] LABS: CALCIUM 8.5 mg/dL (8.4-10.2)
--- NOTE | 2018-04-01 08:32 | CON ---
DATE: 03/31/2018 The consultation is requested by Pérez Lynch HISTORY OF PRESENT ILLNESS: The patient is an 78-year-old [place] male with history of CHF, diabetes mellitus, COPD, peripheral vascular disease, who was admitted with acute dyspnea, shortness of breath, change in mental status, fever, and was found to have a pneumonic process, treated with IV antibiotic. The patient also was found to be anemic and a consultation was called. The patient has history of chronic iron deficiency anemia. He also has a history of AVMs of the right colon with chronic GI bleeding. He was evaluated in the past and during an acute exacerbation of usual status of health as in this occasion, colonoscopy was not done as the patient was medically not cleared for the procedure. At present again, the necessity of a colonoscopy was discussed with the PMD and the patient. The patient has agreed to follow up in the office with me in two weeks when his pneumonic process would have resolved. His baseline respiratory function will improve for possible colonoscopy. At present, denies hematochezia, melena, or abdominal pain. PAST MEDICAL HISTORY: Again as stated in history of present illness. LABORATORY DATA: Labs are reviewed. The patient is anemic and at present receiving blood transfusion. SOCIAL HISTORY: There is no active ETOH or smoking history. FAMILY HISTORY: Noncontributory. REVIEW OF SYSTEMS: All reviewed and negative except for history of present illness. PHYSICAL EXAMINATION GENERAL: He is awake and alert, in no apparent distress. He is with nasal canula, but seems comfortable. VITAL SIGNS: Stable. HEENT: Normocephalic, atraumatic. Extraocular muscles intact. Pupils are equal and reactive to light and accommodation. NECK: No JVD. No neck masses. HEART: Auscultation of the heart S1 and S2. No murmur or gallop. LUNGS: Clear. ABDOMEN: Obese, distended, but soft. There is no guarding or rebound. EXTREMITIES: 1 to 2+ pitting edema. NEUROLOGIC: Cranial nerves II through XII are intact. IMPRESSION: Again, pneumonia, diabetes mellitus, congestive heart failure, coronary artery disease, chronic obstructive pulmonary disease, chronic anemia. PLAN: I agree with the present management as discussed with . The patient will follow up with me in 2 to 3 weeks post discharge, to be evaluated at that point for diagnostic colonoscopy. Thank you for allowing me to participate in the care of your patient. We will follow with you as needed. At present, again we will sign off the case as there is no acute GI problem. Roberto Parmar MD
--- NOTE | 2018-04-01 08:43 | CP.PCM.PN ---
Subjective - Date & Time of Evaluation Date of Evaluation: 04/01/18 Time of Evaluation: 08:40 - Subjective Subjective: Pt 's hgb is still only 7,7 gms after 5 days of venofer, Will check CBC and ferritin in am . May need a bone marrow if the hgb does not improve. Objective - Vital Signs/Intake and Output Vital Signs (last 24 hours): Temp Pulse Resp BP Pulse Ox 98.4 F 83 20 162/61 H 94 L 03/31/18 19:49 03/31/18 19:49 03/31/18 19:49 03/31/18 19:49 03/31/18 19:49 - Medications Medications: Current Medications Albuterol Sulfate (Albuterol 0.083% Inhal Marissa (2.5 Mg/3 Ml) Ud) 2.5 mg INH RQ4 PRN PRN Reason: Shortness of Breath Last Admin: 03/27/18 23:31 Dose: 2.5 mg Amlodipine Besylate (Norvasc) 5 mg PO DAILY [facility] Last Admin: 03/31/18 08:34 Dose: 5 mg Atorvastatin Calcium (Lipitor) 20 mg PO HS [facility] Last Admin: 03/31/18 22:20 Dose: 20 mg Dextrose (Dextrose 50% Inj) 0 ml IV STAT PRN; Protocol PRN Reason: Hypoglycemia Protocol Dextrose (Glutose 15) 0 gm PO ONCE PRN; Protocol PRN Reason: Hypoglycemia Protocol Docusate Sodium (Colace) 100 mg PO BID [facility] Last Admin: 03/31/18 16:55 Dose: 100 mg Folic Acid (Folic Acid) 1 mg PO DAILY [facility] Last Admin: 03/31/18 08:33 Dose: 1 mg Glipizide (Glucotrol Xl) 10 mg PO DAILY [facility] Last Admin: 03/31/18 08:34 Dose: 10 mg Glucagon (Glucagen Diagnostic Kit) 0 mg IM STAT PRN; Protocol PRN Reason: Hypoglycemia Protocol Ceftriaxone Sodium 1 gm/ (Sodium Chloride) 100 mls @ 100 mls/hr IVPB DAILY@1700 [facility] Last Admin: 03/31/18 16:59 Dose: 100 mls/hr Iron Sucrose 200 mg/ Sodium (Chloride) 110 mls @ 110 mls/hr IVPB DAILY@1600 [facility] Last Admin: 03/31/18 15:34 Dose: 110 mls/hr Azithromycin 500 mg/ Sodium (Chloride) 250 mls @ 125 mls/hr IVPB DAILY@0500 [facility] Last Admin: 04/01/18 05:15 Dose: 125 mls/hr Insulin Detemir (Levemir) 34 units SC HS [facility] Last Admin: 03/31/18 22:20 Dose: 34 u Insulin Human Regular (Humulin R) 0 units SC ACHS [facility]; Protocol Last Admin: 04/01/18 06:59 Dose: Not Given Levothyroxine Sodium (Synthroid) 175 mcg PO DAILY@0630 [facility] Last Admin: 04/01/18 06:41 Dose: 175 mcg Metformin HCl (Glucophage) 1,000 mg PO BIDWM [facility] Last Admin: 03/31/18 16:56 Dose: 1,000 mg Shrnk-3-Casu Ethyl Esters (Lovaza) 1 gm PO BID [facility] Last Admin: 03/31/18 16:56 Dose: 1 gm Pantoprazole Sodium (Protonix Inj) 40 mg IVP DAILY [facility] Last Admin: 03/31/18 08:34 Dose: 40 mg Fluticasone/Salmeterol (Advair Diskus 250/50) 1 puff IH BID [facility] Last Admin: 03/31/18 16:56 Dose: 1 puff Thiamine HCl (Vitamin B1 Tab) 100 mg PO DAILY [facility] Last Admin: 03/31/18 08:34 Dose: 100 mg Tiotropium [place] (Spiriva) 18 mcg INH DAILY [facility] Last Admin: 03/31/18 08:34 Dose: 18 mcg - Labs Labs: 04/01/18 06:05 04/01/18 06:05
[2018-04-01] MEDS: Fluticasone-Salmeterol 250-50mcg Diskus IH SCH ×2 (09:03→16:05)
[2018-04-01] MEDS: Omega-3-Acid Ethyl Esters 1 GM Cap PO SCH ×2 (09:04→16:05)
[2018-04-01] MEDS: GlipiZIDE 10 mg SR Tab PO SCH (09:04)
[2018-04-01] MEDS: Tiotropium 18 mcg Cap For Inhalation INH SCH (09:05)
--- NOTE | 2018-04-01 11:32 | CP.PCM.PN ---
Subjective - Date & Time of Evaluation Date of Evaluation: 04/01/18 Time of Evaluation: 11:32 - Subjective Subjective: H/H still dropping. patient will need more iron infusion , if no improvement as per hemo consult will need bone marrow bx. Objective - Vital Signs/Intake and Output Vital Signs (last 24 hours): Temp Pulse Resp BP Pulse Ox 98.2 F 86 20 109/50 L 90 L 04/01/18 09:29 04/01/18 09:29 04/01/18 09:29 04/01/18 09:29 04/01/18 09:29 - Medications Medications: Current Medications Albuterol Sulfate (Albuterol 0.083% Inhal Marissa (2.5 Mg/3 Ml) Ud) 2.5 mg INH RQ4 PRN PRN Reason: Shortness of Breath Last Admin: 03/27/18 23:31 Dose: 2.5 mg Amlodipine Besylate (Norvasc) 5 mg PO DAILY [facility] Last Admin: 04/01/18 09:04 Dose: 5 mg Atorvastatin Calcium (Lipitor) 20 mg PO HS [facility] Last Admin: 03/31/18 22:20 Dose: 20 mg Dextrose (Dextrose 50% Inj) 0 ml IV STAT PRN; Protocol PRN Reason: Hypoglycemia Protocol Dextrose (Glutose 15) 0 gm PO ONCE PRN; Protocol PRN Reason: Hypoglycemia Protocol Docusate Sodium (Colace) 100 mg PO BID [facility] Last Admin: 04/01/18 09:04 Dose: 100 mg Folic Acid (Folic Acid) 1 mg PO DAILY [facility] Last Admin: 04/01/18 09:04 Dose: 1 mg Glipizide (Glucotrol Xl) 10 mg PO DAILY [facility] Last Admin: 04/01/18 09:04 Dose: 10 mg Glucagon (Glucagen Diagnostic Kit) 0 mg IM STAT PRN; Protocol PRN Reason: Hypoglycemia Protocol Ceftriaxone Sodium 1 gm/ (Sodium Chloride) 100 mls @ 100 mls/hr IVPB DAILY@1700 [facility] Last Admin: 03/31/18 16:59 Dose: 100 mls/hr Iron Sucrose 200 mg/ Sodium (Chloride) 110 mls @ 110 mls/hr IVPB DAILY@1600 [facility] Last Admin: 03/31/18 15:34 Dose: 110 mls/hr Azithromycin 500 mg/ Sodium (Chloride) 250 mls @ 125 mls/hr IVPB DAILY@0500 [facility] Last Admin: 12/07/18 05:15 Dose: 125 mls/hr Insulin Detemir (Levemir) 34 units SC HS [facility] Last Admin: 03/31/18 22:20 Dose: 34 u Insulin Human Regular (Humulin R) 0 units SC ACHS [facility]; Protocol Last Admin: 04/01/18 06:59 Dose: Not Given Levothyroxine Sodium (Synthroid) 175 mcg PO DAILY@0630 [facility] Last Admin: 04/01/18 06:41 Dose: 175 mcg Metformin HCl (Glucophage) 1,000 mg PO BIDWM [facility] Last Admin: 04/01/18 09:03 Dose: 1,000 mg Dndnl-1-Eagq Ethyl Esters (Lovaza) 1 gm PO BID [facility] Last Admin: 04/01/18 09:04 Dose: 1 gm Pantoprazole Sodium (Protonix Inj) 40 mg IVP DAILY [facility] Last Admin: 04/01/18 09:03 Dose: 40 mg Fluticasone/Salmeterol (Advair Diskus 250/50) 1 puff IH BID [facility] Last Admin: 04/01/18 09:03 Dose: 1 puff Thiamine HCl (Vitamin B1 Tab) 100 mg PO DAILY [facility] Last Admin: 04/01/18 09:05 Dose: 100 mg Tiotropium [place] (Spiriva) 18 mcg INH DAILY [facility] Last Admin: 04/01/18 09:05 Dose: 18 mcg - Labs Labs: 04/01/18 06:05 04/01/18 06:05 - Constitutional Appears: Chronically Ill - Head Exam Head Exam: ATRAUMATIC, NORMAL INSPECTION, NORMOCEPHALIC - Eye Exam Eye Exam: Normal appearance - ENT Exam ENT Exam: Mucous Membranes Moist - Neck Exam Neck Exam: Full ROM - Respiratory Exam Respiratory Exam: Decreased Breath Sounds - Cardiovascular Exam Cardiovascular Exam: REGULAR RHYTHM, +S1, +S2 - GI/Abdominal Exam GI & Abdominal Exam: Normal Bowel Sounds - Extremities Exam Extremities Exam: Pedal Edema - Neurological Exam Neurological Exam: Alert, Awake, Oriented x3 - Psychiatric Exam Psychiatric exam: Normal Mood - Skin Skin Exam: Pallor Assessment and Plan (1) Anemia Status: Acute (2) Anemia associated with acute blood loss Status: Suspected (3) COPD exacerbation Status: Acute (4) COPD with acute exacerbation Status: Resolved (5) Dehydration Status: Acute (6) GI bleed Status: Acute (7) Weakness Status: Acute (8) 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
[2018-04-01] MEDS: Insulin Detemir 100 Units/ml Inj SC SCH (21:26)
[2018-04-02] MEDS: Azithromycin 500 MG in Sodium Chloride 0.9% 250 ML IVPB SCH (04:44)
[2018-04-02] MEDS: Levothyroxine 175 MCG TAB PO SCH (06:42)
[2018-04-02] MEDS: Insulin Regular 100 units/ml SC SCH ×4 (06:52→21:51)
[2018-04-02] MEDS: Albuterol 0.083% Inhal Sol (2.5 mg/3 mL) UD INH PRN (08:25)
[2018-04-02] MEDS: Fluticasone-Salmeterol 250-50mcg Diskus IH SCH ×2 (09:33→16:14)
[2018-04-02] MEDS: Tiotropium 18 mcg Cap For Inhalation INH SCH (09:35)
[2018-04-02] MEDS: GlipiZIDE 10 mg SR Tab PO SCH (09:35)
[2018-04-02] MEDS: Omega-3-Acid Ethyl Esters 1 GM Cap PO SCH ×2 (09:35→16:14)
[2018-04-02] MEDS: Insulin Detemir 100 Units/ml Inj SC SCH (21:51)
[2018-04-03] MEDS ORDERED: Albuterol 0.083% Inhal Sol (2.5 mg/3 mL) UD INH ONE (01:04)
[2018-04-03] MEDS: Albuterol 0.083% Inhal Sol (2.5 mg/3 mL) UD INH PRN ×4 (01:07→23:46)
[2018-04-03] MEDS ORDERED: MethylPREDNISolone 40 mg Vial IVP ONE (01:50)
[2018-04-03] MEDS: Insulin Regular 100 units/ml SC SCH ×4 (06:34→21:27)
[2018-04-03] MEDS: Levothyroxine 175 MCG TAB PO SCH (06:34)
[2018-04-03 08:31] LABS: MEAN CELL VOLUME 89.8 fl (80.0-94.0); MEAN CORPUSCULAR HEMOGLOBIN 27.6 pg (27.0-31.0); MEAN CORPUSCULAR HGB CONC 30.7 g/dL (33.0-37.0); RBC 2.89 Mil/uL (4.40-5.90); RED CELL DISTRIBUTION WIDTH 17.1 % (11.5-14.5); WHITE BLOOD COUNT 10.7 K/uL (4.8-10.8)
[2018-04-03] MEDS: Fluticasone-Salmeterol 250-50mcg Diskus IH SCH ×2 (09:10→16:23)
[2018-04-03] MEDS: Omega-3-Acid Ethyl Esters 1 GM Cap PO SCH ×2 (09:11→16:24)
[2018-04-03] MEDS: Tiotropium 18 mcg Cap For Inhalation INH SCH (09:11)
--- NOTE | 2018-04-03 09:50 | RAD ---
Date of service: 04/03/2018 PROCEDURE: CHEST RADIOGRAPH, 1 VIEW HISTORY: hypoxia COMPARISON: None available. FINDINGS: LUNGS: Mild interstitial changes. PLEURA: Right pleural effusion. CARDIOVASCULAR: No aortic atherosclerotic calcification present. Normal. OSSEOUS STRUCTURES: No significant abnormalities. VISUALIZED UPPER ABDOMEN: Normal. OTHER FINDINGS: None. IMPRESSION: Right pleural effusion. Interstitial changes.
[2018-04-03] MEDS: GlipiZIDE 10 mg SR Tab PO SCH (12:49)
[2018-04-03 16:15] LABS: ABG ALLEN TEST YES; ARTERIAL BLOOD GAS HCO3 28.8 mmol/L (21-28); ARTERIAL BLOOD GAS HEMOGLOBIN 8.1 g/dL (11.7-17.4); ARTERIAL BLOOD GAS O2 CAPACITY 11.1 mL/dL (16-24); ARTERIAL BLOOD GAS O2 CONTENT 9.7 ML/dL (15-23); ARTERIAL BLOOD GAS O2 SAT 87.5 % (95-98); ARTERIAL BLOOD GAS PCO2 51 mm/Hg (35-45); ARTERIAL BLOOD GAS PH 7.39 (7.35-7.45); ARTERIAL BLOOD GAS PO2 49 mm/Hg (80-100); ARTERIAL BLOOD GAS TCO2 32.5 mmol/L (22-28)
[2018-04-03] MEDS: Insulin Detemir 100 Units/ml Inj SC SCH ×2 (21:28→21:36)
[2018-04-04] MEDS: Levothyroxine 175 MCG TAB PO SCH (06:10)
[2018-04-04] MEDS: Albuterol 0.083% Inhal Sol (2.5 mg/3 mL) UD INH PRN ×2 (07:39→20:02)
[2018-04-04] MEDS: Insulin Regular 100 units/ml SC SCH ×4 (07:42→21:58)
[2018-04-04] MEDS: Fluticasone-Salmeterol 250-50mcg Diskus IH SCH ×2 (08:23→16:20)
[2018-04-04] MEDS: Tiotropium 18 mcg Cap For Inhalation INH SCH (08:23)
[2018-04-04] MEDS: Omega-3-Acid Ethyl Esters 1 GM Cap PO SCH ×2 (08:24→16:20)
[2018-04-04] MEDS: GlipiZIDE 10 mg SR Tab PO SCH (08:24)
--- NOTE | 2018-04-04 08:43 | CP.PCM.PN ---
Subjective - Date & Time of Evaluation Date of Evaluation: 04/04/18 Time of Evaluation: 08:37 - Subjective Subjective: Informed of patient with episode of O2 desaturation. Has remained on all medications as before. Has no complaints of chest pain or cough. Feels well while on supplemental O2 via ventimask. Desaturates to 80% quickly when he removes the O2. CXR done yesterday shows pulmonary congestive pattern and right pleural effusion. Lying in bed semi-upright. Appears anxious, not c/o any pain. Appears mildly SOB with conversation. Dullness on percussion in the right base posteriorly. No audible wheezes or bronchial breath sounds. Breath sounds are very diminished biaterally. Heart sounds are distant, rhythm regular. ++ dependant edema of both LE's, no cyanosis. No calf tenderness. Clinically appears to be in CHF. Need to consider possible PE (not anticoagulated because of significant anemia). Furosemide 40MG IVP. Echocardiogram (last one 06/2016). Cardiology consultation. Pro BNP, VQ lung scan. Objective - Vital Signs/Intake and Output Vital Signs (last 24 hours): Temp Pulse Resp BP Pulse Ox 97.6 F 98 H 18 155/73 H 90 L 04/04/18 08:03 04/04/18 08:03 04/04/18 08:03 04/04/18 08:33 04/04/18 08:03 - Medications Medications: Current Medications Albuterol Sulfate (Albuterol 0.083% Inhal Marissa (2.5 Mg/3 Ml) Ud) 2.5 mg INH RQ4 PRN PRN Reason: Shortness of Breath Last Admin: 04/04/18 07:39 Dose: 2.5 mg Amlodipine Besylate (Norvasc) 5 mg PO DAILY [facility] Last Admin: 04/04/18 08:24 Dose: 5 mg Atorvastatin Calcium (Lipitor) 20 mg PO HS [facility] Last Admin: 04/03/18 21:28 Dose: 20 mg Dextrose (Dextrose 50% Inj) 0 ml IV STAT PRN; Protocol PRN Reason: Hypoglycemia Protocol Dextrose (Glutose 15) 0 gm PO ONCE PRN; Protocol PRN Reason: Hypoglycemia Protocol Docusate Sodium (Colace) 100 mg PO BID [facility] Last Admin: 04/04/18 08:24 Dose: 100 mg Folic Acid (Folic Acid) 1 mg PO DAILY [facility] Last Admin: 04/04/18 08:24 Dose: 1 mg Glipizide (Glucotrol Xl) 10 mg PO DAILY [facility] Last Admin: 04/04/18 08:24 Dose: 10 mg Glucagon (Glucagen Diagnostic Kit) 0 mg IM STAT PRN; Protocol PRN Reason: Hypoglycemia Protocol Iron Sucrose 200 mg/ Sodium (Chloride) 110 mls @ 110 mls/hr IVPB DAILY@1600 [facility] Last Admin: 04/03/18 16:23 Dose: 110 mls/hr Insulin Detemir (Levemir) 34 units SC HS [facility] Last Admin: 04/03/18 21:36 Dose: 34 u Insulin Human Regular (Humulin R) 0 units SC ACHS [facility]; Protocol Last Admin: 04/04/18 07:42 Dose: Not Given Levothyroxine Sodium (Synthroid) 175 mcg PO DAILY@0630 [facility] Last Admin: 04/04/18 06:10 Dose: 175 mcg Metformin HCl (Glucophage) 1,000 mg PO BIDWM [facility] Last Admin: 04/04/18 08:24 Dose: 1,000 mg Exgno-0-Tlhs Ethyl Esters (Lovaza) 1 gm PO BID [facility] Last Admin: 04/04/18 08:24 Dose: 1 gm Pantoprazole Sodium (Protonix Inj) 40 mg IVP DAILY [facility] Last Admin: 04/04/18 08:23 Dose: 40 mg Fluticasone/Salmeterol (Advair Diskus 250/50) 1 puff IH BID [facility] Last Admin: 04/04/18 08:23 Dose: 1 puff Thiamine HCl (Vitamin B1 Tab) 100 mg PO DAILY [facility] Last Admin: 04/04/18 08:24 Dose: 100 mg Tiotropium [place] (Spiriva) 18 mcg INH DAILY [facility] Last Admin: 04/04/18 08:23 Dose: 18 mcg - Labs Labs: 04/03/18 07:30 04/01/18 06:05 Assessment and Plan (1) COPD with acute exacerbation Status: Resolved (2) Pneumonia Status: Resolved (3) Anemia Status: Acute
--- NOTE | 2018-04-04 11:30 | CP.PCM.PN ---
Subjective - Date & Time of Evaluation Date of Evaluation: 04/04/18 Time of Evaluation: 11:29 - Subjective Subjective: Pt gets O2 desaturation when he walks. Hgb is 8.1gms. Will transfuse 2 units of packed cells today Objective - Vital Signs/Intake and Output Vital Signs (last 24 hours): Temp Pulse Resp BP Pulse Ox 97.6 F 98 H 18 155/73 H 90 L 04/04/18 08:03 04/04/18 08:03 04/04/18 08:03 04/04/18 08:33 04/04/18 08:03 - Medications Medications: Current Medications Albuterol Sulfate (Albuterol 0.083% Inhal Marissa (2.5 Mg/3 Ml) Ud) 2.5 mg INH RQ4 PRN PRN Reason: Shortness of Breath Last Admin: 04/04/18 07:39 Dose: 2.5 mg Amlodipine Besylate (Norvasc) 5 mg PO DAILY [facility] Last Admin: 04/04/18 08:24 Dose: 5 mg Atorvastatin Calcium (Lipitor) 20 mg PO [facility] Last Admin: 04/03/18 21:28 Dose: 20 mg Dextrose (Dextrose 50% Inj) 0 ml IV STAT PRN; Protocol PRN Reason: Hypoglycemia Protocol Dextrose (Glutose 15) 0 gm PO ONCE PRN; Protocol PRN Reason: Hypoglycemia Protocol Docusate Sodium (Colace) 100 mg PO BID [facility] Last Admin: 04/04/18 08:24 Dose: 100 mg Folic Acid (Folic Acid) 1 mg PO DAILY [facility] Last Admin: 04/04/18 08:24 Dose: 1 mg Glipizide (Glucotrol Xl) 10 mg PO DAILY [facility] Last Admin: 04/04/18 08:24 Dose: 10 mg Glucagon (Glucagen Diagnostic Kit) 0 mg IM STAT PRN; Protocol PRN Reason: Hypoglycemia Protocol Insulin Detemir (Levemir) 34 units SC [facility] Last Admin: 04/03/18 21:36 Dose: 34 u Insulin Human Regular (Humulin R) 0 units SC [facility]; Protocol Last Admin: 04/04/18 11:26 Dose: Not Given Levothyroxine Sodium (Synthroid) 175 mcg PO DAILY@0630 [facility] Last Admin: 04/04/18 06:10 Dose: 175 mcg Metformin HCl (Glucophage) 1,000 mg PO BIDWM [facility] Last Admin: 04/04/18 08:24 Dose: 1,000 mg Oewgc-5-Wpcy Ethyl Esters (Lovaza) 1 gm PO BID [facility] Last Admin: 04/04/18 08:24 Dose: 1 gm Pantoprazole Sodium (Protonix Inj) 40 mg IVP DAILY [facility] Last Admin: 04/04/18 08:23 Dose: 40 mg Fluticasone/Salmeterol (Advair Diskus 250/50) 1 puff IH BID [facility] Last Admin: 04/04/18 08:23 Dose: 1 puff Thiamine HCl (Vitamin B1 Tab) 100 mg PO DAILY [facility] Last Admin: 04/04/18 08:24 Dose: 100 mg Tiotropium [place] (Spiriva) 18 mcg INH DAILY [facility] Last Admin: 04/04/18 08:23 Dose: 18 mcg - Labs Labs: 04/03/18 07:30 04/01/18 06:05
[2018-04-05] MEDS: Albuterol 0.083% Inhal Sol (2.5 mg/3 mL) UD INH PRN (03:07)
[2018-04-05] MEDS: Levothyroxine 175 MCG TAB PO SCH (05:59)
[2018-04-05] MEDS: Insulin Regular 100 units/ml SC SCH ×4 (06:33→21:32)
[2018-04-05] MEDS: Omega-3-Acid Ethyl Esters 1 GM Cap PO SCH ×2 (08:07→18:33)
[2018-04-05] MEDS: Tiotropium 18 mcg Cap For Inhalation INH SCH (08:08)
[2018-04-05] MEDS: Fluticasone-Salmeterol 250-50mcg Diskus IH SCH ×2 (08:09→18:27)
[2018-04-05] MEDS: GlipiZIDE 10 mg SR Tab PO SCH (08:11)
--- NOTE | 2018-04-05 09:14 | CP.PCM.PN ---
Subjective - Date & Time of Evaluation Date of Evaluation: 04/05/18 Time of Evaluation: 09:10 - Subjective Subjective: Diuresed 2000mls after IV lasix yesterday. Appears more comfortable seated on EOB. SpO2 94% with O2 via ventimask at 40%. Breath sounds appear improved bilaterally. No audible wheezing or bronchial breathing. Dependant edema still ++ bilaterally. Okay for transfusion of PRBC's today in the infusion center. Would diurese with PO lasix pre, and again during transfusion. Objective - Vital Signs/Intake and Output Vital Signs (last 24 hours): Temp Pulse Resp BP Pulse Ox 98.3 F 83 18 143/55 L 93 L 04/05/18 08:28 04/05/18 08:28 04/05/18 08:28 04/05/18 08:28 04/05/18 08:28 Intake and Output: 04/04/18 04/05/18 23:59 11:59 Intake Total 500 Output Total 2000 Balance -1500 - Medications Medications: Current Medications Albuterol Sulfate (Albuterol 0.083% Inhal Marissa (2.5 Mg/3 Ml) Ud) 2.5 mg INH RQ4 PRN PRN Reason: Shortness of Breath Last Admin: 04/05/18 03:07 Dose: 2.5 mg Amlodipine Besylate (Norvasc) 5 mg PO DAILY [facility] Last Admin: 04/05/18 08:11 Dose: 5 mg Atorvastatin Calcium (Lipitor) 20 mg PO [facility] Last Admin: 04/04/18 21:48 Dose: 20 mg Dextrose (Dextrose 50% Inj) 0 ml IV STAT PRN; Protocol PRN Reason: Hypoglycemia Protocol Dextrose (Glutose 15) 0 gm PO ONCE PRN; Protocol PRN Reason: Hypoglycemia Protocol Docusate Sodium (Colace) 100 mg PO BID [facility] Last Admin: 04/05/18 08:10 Dose: 100 mg Folic Acid (Folic Acid) 1 mg PO DAILY [facility] Last Admin: 04/05/18 08:10 Dose: 1 mg Glipizide (Glucotrol Xl) 10 mg PO DAILY [facility] Last Admin: 04/05/18 08:11 Dose: 10 mg Glucagon (Glucagen Diagnostic Kit) 0 mg IM STAT PRN; Protocol PRN Reason: Hypoglycemia Protocol Insulin Detemir (Levemir) 34 units SC [facility] Last Admin: 04/03/18 21:36 Dose: 34 u Insulin Human Regular (Humulin R) 0 units SC ACHS [facility]; Protocol Last Admin: 04/05/18 06:33 Dose: Not Given Levothyroxine Sodium (Synthroid) 175 mcg PO DAILY@0630 [facility] Last Admin: 04/05/18 05:59 Dose: 175 mcg Metformin HCl (Glucophage) 1,000 mg PO BIDWM [facility] Last Admin: 04/05/18 08:10 Dose: 1,000 mg Enzla-7-Gnrx Ethyl Esters (Lovaza) 1 gm PO BID [facility] Last Admin: 04/05/18 08:07 Dose: 1 gm Pantoprazole Sodium (Protonix Inj) 40 mg IVP DAILY [facility] Last Admin: 04/05/18 08:07 Dose: 40 mg Fluticasone/Salmeterol (Advair Diskus 250/50) 1 puff IH BID [facility] Last Admin: 04/05/18 08:09 Dose: 1 puff Thiamine HCl (Vitamin B1 Tab) 100 mg PO DAILY [facility] Last Admin: 04/05/18 08:11 Dose: 100 mg Tiotropium [place] (Spiriva) 18 mcg INH DAILY [facility] Last Admin: 04/05/18 08:08 Dose: 18 mcg - Labs Labs: 04/03/18 07:30 04/01/18 06:05 Assessment and Plan (1) COPD with acute exacerbation Status: Resolved (2) Pneumonia Status: Resolved (3) Anemia Status: Acute
--- NOTE | 2018-04-05 10:02 | CP.PCM.PN ---
Subjective - Date & Time of Evaluation Date of Evaluation: 04/05/18 Time of Evaluation: 10:01 - Subjective Subjective: Pt feels a little better after receiving lasix and he put out 1-2 liters of urine. Now he is in infusion center for blood transfusion. He has no complaints at this time. Objective - Vital Signs/Intake and Output Vital Signs (last 24 hours): Temp Pulse Resp BP Pulse Ox 98.3 F 83 18 143/55 L 93 L 04/05/18 08:28 04/05/18 08:28 04/05/18 08:28 04/05/18 09:42 04/05/18 08:28 - Medications Medications: Current Medications Albuterol Sulfate (Albuterol 0.083% Inhal Marissa (2.5 Mg/3 Ml) Ud) 2.5 mg INH RQ4 PRN PRN Reason: Shortness of Breath Last Admin: 04/05/18 03:07 Dose: 2.5 mg Amlodipine Besylate (Norvasc) 5 mg PO DAILY [facility] Last Admin: 04/05/18 08:11 Dose: 5 mg Atorvastatin Calcium (Lipitor) 20 mg PO [facility] Last Admin: 04/04/18 21:48 Dose: 20 mg Dextrose (Dextrose 50% Inj) 0 ml IV STAT PRN; Protocol PRN Reason: Hypoglycemia Protocol Dextrose (Glutose 15) 0 gm PO ONCE PRN; Protocol PRN Reason: Hypoglycemia Protocol Docusate Sodium (Colace) 100 mg PO BID [facility] Last Admin: 04/05/18 08:10 Dose: 100 mg Folic Acid (Folic Acid) 1 mg PO DAILY [facility] Last Admin: 04/05/18 08:10 Dose: 1 mg Glipizide (Glucotrol Xl) 10 mg PO DAILY [facility] Last Admin: 04/05/18 08:11 Dose: 10 mg Glucagon (Glucagen Diagnostic Kit) 0 mg IM STAT PRN; Protocol PRN Reason: Hypoglycemia Protocol Insulin Detemir (Levemir) 34 units SC [facility] Last Admin: 04/03/18 21:36 Dose: 34 u Insulin Human Regular (Humulin R) 0 units SC [facility]; Protocol Last Admin: 04/05/18 06:33 Dose: Not Given Levothyroxine Sodium (Synthroid) 175 mcg PO DAILY@0630 [facility] Last Admin: 04/05/18 05:59 Dose: 175 mcg Metformin HCl (Glucophage) 1,000 mg PO BIDWM [facility] Last Admin: 04/05/18 08:10 Dose: 1,000 mg Pgmgz-8-Almb Ethyl Esters (Lovaza) 1 gm PO BID [facility] Last Admin: 04/05/18 08:07 Dose: 1 gm Pantoprazole Sodium (Protonix Inj) 40 mg IVP DAILY [facility] Last Admin: 04/05/18 08:07 Dose: 40 mg Fluticasone/Salmeterol (Advair Diskus 250/50) 1 puff IH BID [facility] Last Admin: 04/05/18 08:09 Dose: 1 puff Thiamine HCl (Vitamin B1 Tab) 100 mg PO DAILY [facility] Last Admin: 04/05/18 08:11 Dose: 100 mg Tiotropium [place] (Spiriva) 18 mcg INH DAILY [facility] Last Admin: 04/05/18 08:08 Dose: 18 mcg - Labs Labs: 04/03/18 07:30 04/01/18 06:05
--- NOTE | 2018-04-05 10:23 | CP.PCM.PN ---
Subjective - Date & Time of Evaluation Date of Evaluation: 04/05/18 Time of Evaluation: 10:18 - Subjective Subjective: for transfusion today diuresing with lasix hd stable nad Objective - Vital Signs/Intake and Output Vital Signs (last 24 hours): Temp Pulse Resp BP Pulse Ox 98.3 F 83 18 143/55 L 93 L 04/05/18 08:28 04/05/18 08:28 04/05/18 08:28 04/05/18 09:42 04/05/18 08:28 - Medications Medications: Current Medications Albuterol Sulfate (Albuterol 0.083% Inhal Marissa (2.5 Mg/3 Ml) Ud) 2.5 mg INH RQ4 PRN PRN Reason: Shortness of Breath Last Admin: 04/05/18 03:07 Dose: 2.5 mg Amlodipine Besylate (Norvasc) 5 mg PO DAILY [facility] Last Admin: 04/05/18 08:11 Dose: 5 mg Atorvastatin Calcium (Lipitor) 20 mg PO [facility] Last Admin: 04/04/18 21:48 Dose: 20 mg Dextrose (Dextrose 50% Inj) 0 ml IV STAT PRN; Protocol PRN Reason: Hypoglycemia Protocol Dextrose (Glutose 15) 0 gm PO ONCE PRN; Protocol PRN Reason: Hypoglycemia Protocol Docusate Sodium (Colace) 100 mg PO BID [facility] Last Admin: 04/05/18 08:10 Dose: 100 mg Folic Acid (Folic Acid) 1 mg PO DAILY [facility] Last Admin: 04/05/18 08:10 Dose: 1 mg Glipizide (Glucotrol Xl) 10 mg PO DAILY [facility] Last Admin: 04/05/18 08:11 Dose: 10 mg Glucagon (Glucagen Diagnostic Kit) 0 mg IM STAT PRN; Protocol PRN Reason: Hypoglycemia Protocol Insulin Detemir (Levemir) 34 units SC [facility] Last Admin: 04/03/18 21:36 Dose: 34 u Insulin Human Regular (Humulin R) 0 units SC [facility]; Protocol Last Admin: 04/05/18 06:33 Dose: Not Given Levothyroxine Sodium (Synthroid) 175 mcg PO DAILY@0630 [facility] Last Admin: 04/05/18 05:59 Dose: 175 mcg Metformin HCl (Glucophage) 1,000 mg PO BIDWM [facility] Last Admin: 04/05/18 08:10 Dose: 1,000 mg Jtogp-0-Rlao Ethyl Esters (Lovaza) 1 gm PO BID [facility] Last Admin: 04/05/18 08:07 Dose: 1 gm Pantoprazole Sodium (Protonix Inj) 40 mg IVP DAILY [facility] Last Admin: 04/05/18 08:07 Dose: 40 mg Fluticasone/Salmeterol (Advair Diskus 250/50) 1 puff IH BID [facility] Last Admin: 04/05/18 08:09 Dose: 1 puff Thiamine HCl (Vitamin B1 Tab) 100 mg PO DAILY [facility] Last Admin: 04/05/18 08:11 Dose: 100 mg Tiotropium [place] (Spiriva) 18 mcg INH DAILY [facility] Last Admin: 04/05/18 08:08 Dose: 18 mcg - Labs Labs: 04/03/18 07:30 04/01/18 06:05 - Constitutional Appears: Non-toxic, No Acute Distress - Head Exam Head Exam: ATRAUMATIC, NORMOCEPHALIC - Eye Exam Eye Exam: EOMI, Normal appearance, PERRL Pupil Exam: NORMAL ACCOMODATION - ENT Exam ENT Exam: Mucous Membranes Moist, Normal Oropharynx - Respiratory Exam Respiratory Exam: Clear to Ausculation Bilateral, NORMAL BREATHING PATTERN - Cardiovascular Exam Cardiovascular Exam: RRR, +S1, +S2 - GI/Abdominal Exam GI & Abdominal Exam: Soft, Normal Bowel Sounds. absent: Tenderness, Mass, Organomegaly - Extremities Exam Extremities Exam: Normal Capillary Refill. absent: Calf Tenderness, Tenderness - Back Exam Back Exam: absent: CVA tenderness (L), CVA tenderness (R) - Neurological Exam Neurological Exam: Alert, Awake - Psychiatric Exam Psychiatric exam: Normal Affect, Normal Mood - Skin Skin Exam: Dry, Warm Assessment and Plan - Assessment and Plan (Free Text) Plan: 78 year old male discharged to TCU after admission for pneumonia with hypoxemia, COPD, anemia, with hx CHF, severe PVD, uncontrolled DM. Patient admitted to TCU for further rehab for debilitation and weakness. Pt found to be anemic and requiring transfusions with lasix diuresis in between per heme onc and pulmonary consults. Reevaluate CBC post transfusion. Anemia Hx CHF - receiving 2 units PRBC today - lasix in between transfusions - Drs. Dash and Bradly consults appreciated and followed - PT
[2018-04-05] MEDS ORDERED: Magnesium Hydroxide Susp 30 ml UD PO ONE (18:46)
[2018-04-05] MEDS: Insulin Detemir 100 Units/ml Inj SC SCH (21:31)
[2018-04-06] MEDS: Levothyroxine 175 MCG TAB PO SCH (06:09)
[2018-04-06 06:36] LABS: HEMOGLOBIN 9.5 g/dL (12.0-18.0); MEAN CELL VOLUME 87.4 fl (80.0-94.0); MEAN CORPUSCULAR HEMOGLOBIN 27.5 pg (27.0-31.0); MEAN CORPUSCULAR HGB CONC 31.5 g/dL (33.0-37.0); RBC 3.45 Mil/uL (4.40-5.90); RED CELL DISTRIBUTION WIDTH 18.5 % (11.5-14.5); WHITE BLOOD COUNT 11.6 K/uL (4.8-10.8)
[2018-04-06] MEDS: Insulin Regular 100 units/ml SC SCH ×4 (06:43→21:25)
[2018-04-06] MEDS: Fluticasone-Salmeterol 250-50mcg Diskus IH SCH ×2 (09:27→16:35)
[2018-04-06] MEDS: GlipiZIDE 10 mg SR Tab PO SCH (09:28)
[2018-04-06] MEDS: Omega-3-Acid Ethyl Esters 1 GM Cap PO SCH ×2 (09:29→16:34)
[2018-04-06] MEDS: Tiotropium 18 mcg Cap For Inhalation INH SCH (09:32)
--- NOTE | 2018-04-06 09:53 | CP.PCM.PN ---
Subjective - Date & Time of Evaluation Date of Evaluation: 04/06/18 Time of Evaluation: 09:52 - Subjective Subjective: Pt is feeling better after the transfusion which he tolerated well. Will monitor CBC to see if the HGB stays stable. Objective - Vital Signs/Intake and Output Vital Signs (last 24 hours): Temp Pulse Resp BP Pulse Ox 97.2 F L 93 H 18 164/80 H 90 L 04/06/18 08:22 04/06/18 09:28 04/06/18 08:22 04/06/18 09:28 04/06/18 08:22 - Medications Medications: Current Medications Albuterol Sulfate (Albuterol 0.083% Inhal Marissa (2.5 Mg/3 Ml) Ud) 2.5 mg INH RQ4 PRN PRN Reason: Shortness of Breath Last Admin: 04/05/18 03:07 Dose: 2.5 mg Amlodipine Besylate (Norvasc) 5 mg PO DAILY [facility] Last Admin: 04/06/18 09:28 Dose: 5 mg Atorvastatin Calcium (Lipitor) 20 mg PO [facility] Last Admin: 04/05/18 21:31 Dose: 20 mg Dextrose (Dextrose 50% Inj) 0 ml IV STAT PRN; Protocol PRN Reason: Hypoglycemia Protocol Dextrose (Glutose 15) 0 gm PO ONCE PRN; Protocol PRN Reason: Hypoglycemia Protocol Docusate Sodium (Colace) 100 mg PO BID [facility] Last Admin: 04/06/18 09:29 Dose: 100 mg Folic Acid (Folic Acid) 1 mg PO DAILY [facility] Last Admin: 04/06/18 09:28 Dose: 1 mg Glipizide (Glucotrol Xl) 10 mg PO DAILY [facility] Last Admin: 04/06/18 09:28 Dose: 10 mg Glucagon (Glucagen Diagnostic Kit) 0 mg IM STAT PRN; Protocol PRN Reason: Hypoglycemia Protocol Insulin Detemir (Levemir) 34 units SC [facility] Last Admin: 04/05/18 21:31 Dose: 34 u Insulin Human Regular (Humulin R) 0 units SC [facility]; Protocol Last Admin: 04/06/18 06:43 Dose: 2 u Levothyroxine Sodium (Synthroid) 175 mcg PO DAILY@0630 [facility] Last Admin: 04/06/18 06:09 Dose: 175 mcg Metformin HCl (Glucophage) 1,000 mg PO BIDWM [facility] Last Admin: 04/06/18 09:28 Dose: 1,000 mg [id number]-6-[id number] Ethyl Esters (Lovaza) 1 gm PO BID [facility] Last Admin: 04/06/18 09:29 Dose: 1 gm Pantoprazole Sodium (Protonix Inj) 40 mg IVP DAILY [facility] Last Admin: 04/06/18 09:28 Dose: 40 mg Fluticasone/Salmeterol (Advair Diskus 250/50) 1 puff IH BID [facility] Last Admin: 04/06/18 09:27 Dose: 1 puff Thiamine HCl (Vitamin B1 Tab) 100 mg PO DAILY [facility] Last Admin: 04/06/18 09:29 Dose: 100 mg Tiotropium [place] (Spiriva) 18 mcg INH DAILY [facility] Last Admin: 04/06/18 09:32 Dose: 18 mcg - Labs Labs: 04/06/18 06:15 04/01/18 06:05
[2018-04-06 10:19] LABS: IRON 66 ug/dL (49-181)
[2018-04-06 10:28] LABS: % IRON SATURATION 19 % (20-55); TOTAL IRON BINDING CAPACITY 356 ug/dL (250-450)
[2018-04-06] MEDS: Insulin Detemir 100 Units/ml Inj SC SCH (21:25)
[2018-04-07] MEDS: Levothyroxine 175 MCG TAB PO SCH (07:15)
[2018-04-07 07:32] LABS: CALCIUM 8.9 mg/dL (8.4-10.2)
[2018-04-07 07:38] LABS: HEMOGLOBIN 9.5 g/dL (12.0-18.0); MEAN CELL VOLUME 89.9 fl (80.0-94.0); MEAN CORPUSCULAR HEMOGLOBIN 27.9 pg (27.0-31.0); MEAN CORPUSCULAR HGB CONC 31.1 g/dL (33.0-37.0); RBC 3.4 Mil/uL (4.40-5.90); RED CELL DISTRIBUTION WIDTH 20.7 % (11.5-14.5); WHITE BLOOD COUNT 8.5 K/uL (4.8-10.8)
[2018-04-07] MEDS: Insulin Regular 100 units/ml SC SCH ×4 (08:04→21:58)
--- NOTE | 2018-04-07 08:07 | CP.PCM.PN ---
Subjective - Date & Time of Evaluation Date of Evaluation: 04/06/18 Time of Evaluation: 11:00 - Subjective Subjective: Appears to be doing well post transfusion. Hemoglobin improved to 9.5 GM after 2U PRBC. Had increased dependant edema post transfusion. Given furosemide in AM and again between units. Re-check BMP in AM. Objective - Vital Signs/Intake and Output Vital Signs (last 24 hours): Temp Pulse Resp BP Pulse Ox 99.1 F 86 20 150/65 90 L 04/06/18 19:56 04/06/18 19:56 04/06/18 19:56 04/06/18 19:56 04/06/18 19:56 - Medications Medications: Current Medications Albuterol Sulfate (Albuterol 0.083% Inhal Marissa (2.5 Mg/3 Ml) Ud) 2.5 mg INH RQ4 PRN PRN Reason: Shortness of Breath Last Admin: 04/05/18 03:07 Dose: 2.5 mg Amlodipine Besylate (Norvasc) 5 mg PO DAILY [facility] Last Admin: 04/06/18 09:28 Dose: 5 mg Atorvastatin Calcium (Lipitor) 20 mg PO HS [facility] Last Admin: 04/06/18 21:24 Dose: 20 mg Dextrose (Dextrose 50% Inj) 0 ml IV STAT PRN; Protocol PRN Reason: Hypoglycemia Protocol Dextrose (Glutose 15) 0 gm PO ONCE PRN; Protocol PRN Reason: Hypoglycemia Protocol Docusate Sodium (Colace) 100 mg PO BID [facility] Last Admin: 04/06/18 16:34 Dose: 100 mg Folic Acid (Folic Acid) 1 mg PO DAILY [facility] Last Admin: 04/06/18 09:28 Dose: 1 mg Furosemide (Lasix) 40 mg PO DAILY [facility] Last Admin: 04/06/18 12:01 Dose: 40 mg Glipizide (Glucotrol Xl) 10 mg PO DAILY [facility] Last Admin: 04/06/18 09:28 Dose: 10 mg Glucagon (Glucagen Diagnostic Kit) 0 mg IM STAT PRN; Protocol PRN Reason: Hypoglycemia Protocol Insulin Detemir (Levemir) 34 units SC [facility] Last Admin: 04/06/18 21:25 Dose: 34 u Insulin Human Regular (Humulin R) 0 units SC [facility]; Protocol Last Admin: 04/06/18 21:25 Dose: Not Given Levothyroxine Sodium (Synthroid) 175 mcg PO DAILY@0630 [facility] Last Admin: 04/07/18 07:15 Dose: 175 mcg Metformin HCl (Glucophage) 1,000 mg PO BIDWM [facility] Last Admin: 04/06/18 16:35 Dose: 1,000 mg Jjmbl-7-[id number] Ethyl Esters (Lovaza) 1 gm PO BID [facility] Last Admin: 04/06/18 16:34 Dose: 1 gm Pantoprazole Sodium (Protonix Inj) 40 mg IVP DAILY [facility] Last Admin: 04/06/18 09:28 Dose: 40 mg Fluticasone/Salmeterol (Advair Diskus 250/50) 1 puff IH BID [facility] Last Admin: 04/06/18 16:35 Dose: 1 puff Thiamine HCl (Vitamin B1 Tab) 100 mg PO DAILY [facility] Last Admin: 04/06/18 09:29 Dose: 100 mg Tiotropium [place] (Spiriva) 18 mcg INH DAILY [facility] Last Admin: 04/06/18 09:32 Dose: 18 mcg - Labs Labs: 04/07/18 06:40 04/07/18 06:40 Assessment and Plan (1) COPD with acute exacerbation Status: Resolved (2) Pneumonia Status: Resolved (3) Anemia Status: Acute
[2018-04-07] MEDS: Fluticasone-Salmeterol 250-50mcg Diskus IH SCH ×2 (08:37→16:42)
[2018-04-07] MEDS: Tiotropium 18 mcg Cap For Inhalation INH SCH (08:37)
[2018-04-07] MEDS: Omega-3-Acid Ethyl Esters 1 GM Cap PO SCH ×2 (08:37→16:43)
[2018-04-07] MEDS: GlipiZIDE 10 mg SR Tab PO SCH (08:40)
--- NOTE | 2018-04-07 08:58 | CP.PCM.PN ---
<Bruce Patino - Last Filed: 04/07/18 08:58> Subjective - Date & Time of Evaluation Date of Evaluation: 04/07/18 Time of Evaluation: 08:58 - Subjective Subjective: Patient seen and examined at bedside this morning. There are no acute events overnight, NAD. Patient reports feeling better and breathing is improved. Patient reports worsened LE edema s/p transfusion PRBCs. Patient offers no new complaints. Patient tolerating physical therapy. Objective - Vital Signs/Intake and Output Vital Signs (last 24 hours): Temp Pulse Resp BP Pulse Ox 98.4 F 87 20 191/68 H 91 L 04/07/18 08:26 04/07/18 08:26 04/07/18 08:26 04/07/18 08:40 04/07/18 08:26 - Medications Medications: Current Medications Albuterol Sulfate (Albuterol 0.083% Inhal Marissa (2.5 Mg/3 Ml) Ud) 2.5 mg INH RQ4 PRN PRN Reason: Shortness of Breath Last Admin: 04/05/18 03:07 Dose: 2.5 mg Amlodipine Besylate (Norvasc) 5 mg PO DAILY [facility] Last Admin: 04/07/18 08:40 Dose: 5 mg Atorvastatin Calcium (Lipitor) 20 mg PO HS [facility] Last Admin: 04/06/18 21:24 Dose: 20 mg Dextrose (Dextrose 50% Inj) 0 ml IV STAT PRN; Protocol PRN Reason: Hypoglycemia Protocol Dextrose (Glutose 15) 0 gm PO ONCE PRN; Protocol PRN Reason: Hypoglycemia Protocol Docusate Sodium (Colace) 100 mg PO BID [facility] Last Admin: 04/07/18 08:38 Dose: 100 mg Folic Acid (Folic Acid) 1 mg PO DAILY [facility] Last Admin: 04/07/18 08:37 Dose: 1 mg Furosemide (Lasix) 40 mg PO DAILY [facility] Last Admin: 04/07/18 08:40 Dose: 40 mg Glipizide (Glucotrol Xl) 10 mg PO DAILY [facility] Last Admin: 04/07/18 08:40 Dose: 10 mg Glucagon (Glucagen Diagnostic Kit) 0 mg IM STAT PRN; Protocol PRN Reason: Hypoglycemia Protocol Insulin Detemir (Levemir) 34 units SC [facility] Last Admin: 04/06/18 21:25 Dose: 34 u Insulin Human Regular (Humulin R) 0 units SC [facility]; Protocol Last Admin: 04/07/18 08:04 Dose: Not Given Levothyroxine Sodium (Synthroid) 175 mcg PO DAILY@0630 [facility] Last Admin: 04/07/18 07:15 Dose: 175 mcg Metformin HCl (Glucophage) 1,000 mg PO BIDWM [facility] Last Admin: 04/07/18 08:37 Dose: 1,000 mg Icaul-2-Wqxv Ethyl Esters (Lovaza) 1 gm PO BID [facility] Last Admin: 04/07/18 08:37 Dose: 1 gm Pantoprazole Sodium (Protonix Inj) 40 mg IVP DAILY [facility] Last Admin: 04/07/18 08:37 Dose: 40 mg Fluticasone/Salmeterol (Advair Diskus 250/50) 1 puff IH BID [facility] Last Admin: 04/07/18 08:37 Dose: 1 puff Thiamine HCl (Vitamin B1 Tab) 100 mg PO DAILY [facility] Last Admin: 04/07/18 08:40 Dose: 100 mg Tiotropium [place] (Spiriva) 18 mcg INH DAILY [facility] Last Admin: 04/07/18 08:37 Dose: 18 mcg - Labs Labs: 04/07/18 06:40 04/07/18 06:40 - Constitutional Appears: Non-toxic, No Acute Distress - Head Exam Head Exam: ATRAUMATIC, NORMAL INSPECTION, NORMOCEPHALIC - Eye Exam Eye Exam: Normal appearance - ENT Exam ENT Exam: Mucous Membranes Moist - Neck Exam Neck Exam: Full ROM. absent: Tenderness - Respiratory Exam Respiratory Exam: Clear to Ausculation Bilateral. absent: Accessory Muscle Use, Decreased Breath Sounds, Rales, Rhonchi, Wheezes, Respiratory Distress - Cardiovascular Exam Cardiovascular Exam: REGULAR RHYTHM - Extremities Exam Extremities Exam: Pedal Edema. absent: Calf Tenderness Additional comments: +3 pedal edema bilaterally - Neurological Exam Neurological Exam: Alert, Awake, Oriented x3 - Skin Skin Exam: Dry, Normal Color, Warm Assessment and Plan (1) Anemia Status: Acute (2) COPD exacerbation Status: Resolved (3) Pneumonia Status: Resolved - Assessment and Plan (Free Text) Assessment: 78 y/o man w/ pmh of severe coronary artery disease, CHF, severe peripheral vascular disease, COPD, uncontrolled DM2 is admitted in TCU for completion of IV antibiotics for pneumonia. Pneumonia has resolved but patient being monitored for acute anemia. Patient is s/p @ units PRBCs and Hb has been stable at 9.5 Plan: - afebrile, no tachycardia, BP elevated, no WBC - breathing improved - O2 sat low 90s on NC - antibiotic course completed and pneumonia resolved - Hb stable at 9.5, s/p PRBCs transfusion 04/05/2018 - continues to have bilateral LE edema which has increased s/p transfusion - BMP shows increase Cr to 1.6 most likely due to aggressive diuresis - consider decreasing lasix - CXR PA/Lat ordered - c/w PT - monitor for acute changes <Skip Abdullahi - Last Filed: 04/08/18 14:09> Subjective - Subjective Subjective: Seen and examined with the resident on rounds. Labs and physical findings were reviewed. Diagnosis and plan of care formulated. Resident's note in the EMR is accurate as entered. Objective - Vital Signs/Intake and Output Vital Signs (last 24 hours): Temp Pulse Resp BP Pulse Ox 98.0 F 78 18 156/66 H 96 04/08/18 08:17 04/08/18 09:16 04/08/18 08:17 04/08/18 09:19 04/08/18 08:17 - Medications Medications: Current Medications Albuterol Sulfate (Albuterol 0.083% Inhal Marissa (2.5 Mg/3 Ml) Ud) 2.5 mg INH RQ4 PRN PRN Reason: Shortness of Breath Last Admin: 04/05/18 03:07 Dose: 2.5 mg Amlodipine Besylate (Norvasc) 5 mg PO DAILY [facility] Last Admin: 04/08/18 09:16 Dose: 5 mg Atorvastatin Calcium (Lipitor) 20 mg PO HS [facility] Last Admin: 04/07/18 21:58 Dose: 20 mg Dextrose (Dextrose 50% Inj) 0 ml IV STAT PRN; Protocol PRN Reason: Hypoglycemia Protocol Dextrose (Glutose 15) 0 gm PO ONCE PRN; Protocol PRN Reason: Hypoglycemia Protocol Docusate Sodium (Colace) 100 mg PO BID [facility] Last Admin: 04/08/18 09:17 Dose: 100 mg Folic Acid (Folic Acid) 1 mg PO DAILY [facility] Last Admin: 04/08/18 09:17 Dose: 1 mg Furosemide (Lasix) 40 mg PO DAILY [facility] Last Admin: 04/08/18 09:19 Dose: 40 mg Glipizide (Glucotrol Xl) 10 mg PO DAILY [facility] Last Admin: 04/08/18 09:19 Dose: 10 mg Glucagon (Glucagen Diagnostic Kit) 0 mg IM STAT PRN; Protocol PRN Reason: Hypoglycemia Protocol Insulin Detemir (Levemir) 34 units SC [facility] Last Admin: 04/07/18 21:58 Dose: 34 u Insulin Human Regular (Humulin R) 0 units SC [facility]; Protocol Last Admin: 04/08/18 12:00 Dose: 3 u Levothyroxine Sodium (Synthroid) 175 mcg PO DAILY@0630 [facility] Last Admin: 04/08/18 05:37 Dose: 175 mcg Metformin HCl (Glucophage) 1,000 mg PO BIDWM [facility] Last Admin: 04/08/18 08:00 Dose: 1,000 mg Xpyqb-9-[id number] Ethyl Esters (Lovaza) 1 gm PO BID [facility] Last Admin: 04/08/18 09:16 Dose: 1 gm Pantoprazole Sodium (Protonix Inj) 40 mg IVP DAILY [facility] Last Admin: 04/08/18 09:19 Dose: 40 mg Fluticasone/Salmeterol (Advair Diskus 250/50) 1 puff IH BID [facility] Last Admin: 04/07/18 16:42 Dose: 1 puff Thiamine HCl (Vitamin B1 Tab) 100 mg PO DAILY [facility] Last Admin: 04/08/18 09:18 Dose: 100 mg Tiotropium [place] (Spiriva) 18 mcg INH DAILY [facility] Last Admin: 04/08/18 09:18 Dose: 18 mcg - Labs Labs: 04/07/18 06:40 04/08/18 04:30 Assessment and Plan (1) COPD with acute exacerbation Status: Resolved (2) Pneumonia Status: Acute (3) Anemia Status: Chronic
--- NOTE | 2018-04-07 11:20 | CP.PCM.PN ---
Subjective - Date & Time of Evaluation Date of Evaluation: 04/07/18 Time of Evaluation: 09:45 - Subjective Subjective: No fever SOB better still with leg edema no CP no abd pain Objective - Vital Signs/Intake and Output Vital Signs (last 24 hours): Temp Pulse Resp BP Pulse Ox 98.4 F 87 20 191/68 H 91 L 04/07/18 08:26 04/07/18 08:26 04/07/18 08:26 04/07/18 08:40 04/07/18 08:26 - Medications Medications: Current Medications Albuterol Sulfate (Albuterol 0.083% Inhal Marissa (2.5 Mg/3 Ml) Ud) 2.5 mg INH RQ4 PRN PRN Reason: Shortness of Breath Last Admin: 04/05/18 03:07 Dose: 2.5 mg Amlodipine Besylate (Norvasc) 5 mg PO DAILY [facility] Last Admin: 04/07/18 08:40 Dose: 5 mg Atorvastatin Calcium (Lipitor) 20 mg PO [facility] Last Admin: 04/06/18 21:24 Dose: 20 mg Dextrose (Dextrose 50% Inj) 0 ml IV STAT PRN; Protocol PRN Reason: Hypoglycemia Protocol Dextrose (Glutose 15) 0 gm PO ONCE PRN; Protocol PRN Reason: Hypoglycemia Protocol Docusate Sodium (Colace) 100 mg PO BID [facility] Last Admin: 04/07/18 08:38 Dose: 100 mg Folic Acid (Folic Acid) 1 mg PO DAILY [facility] Last Admin: 04/07/18 08:37 Dose: 1 mg Furosemide (Lasix) 40 mg PO DAILY [facility] Last Admin: 04/07/18 08:40 Dose: 40 mg Glipizide (Glucotrol Xl) 10 mg PO DAILY [facility] Last Admin: 04/07/18 08:40 Dose: 10 mg Glucagon (Glucagen Diagnostic Kit) 0 mg IM STAT PRN; Protocol PRN Reason: Hypoglycemia Protocol Insulin Detemir (Levemir) 34 units SC [facility] Last Admin: 04/06/18 21:25 Dose: 34 u Insulin Human Regular (Humulin R) 0 units SC [facility]; Protocol Last Admin: 04/07/18 08:04 Dose: Not Given Levothyroxine Sodium (Synthroid) 175 mcg PO DAILY@0630 [facility] Last Admin: 04/07/18 07:15 Dose: 175 mcg Metformin HCl (Glucophage) 1,000 mg PO BIDWM [facility] Last Admin: 04/07/18 08:37 Dose: 1,000 mg Uoybf-6-Edht Ethyl Esters (Lovaza) 1 gm PO BID [facility] Last Admin: 04/07/18 08:37 Dose: 1 gm Pantoprazole Sodium (Protonix Inj) 40 mg IVP DAILY [facility] Last Admin: 04/07/18 08:37 Dose: 40 mg Fluticasone/Salmeterol (Advair Diskus 250/50) 1 puff IH BID [facility] Last Admin: 04/07/18 08:37 Dose: 1 puff Thiamine HCl (Vitamin B1 Tab) 100 mg PO DAILY [facility] Last Admin: 04/07/18 08:40 Dose: 100 mg Tiotropium [place] (Spiriva) 18 mcg INH DAILY [facility] Last Admin: 04/07/18 08:37 Dose: 18 mcg - Labs Labs: 04/07/18 06:40 04/07/18 06:40 - Constitutional Appears: No Acute Distress - Head Exam Head Exam: NORMAL INSPECTION, NORMOCEPHALIC - Eye Exam Eye Exam: EOMI, Normal appearance Pupil Exam: NORMAL ACCOMODATION - ENT Exam ENT Exam: Mucous Membranes Moist, Normal External Ear Exam - Neck Exam Neck Exam: Full ROM. absent: Meningismus - Respiratory Exam Respiratory Exam: Rales (minimal rales bases), NORMAL BREATHING PATTERN. absent: Respiratory Distress - Cardiovascular Exam Cardiovascular Exam: REGULAR RHYTHM, +S1, +S2 - GI/Abdominal Exam GI & Abdominal Exam: Soft, Normal Bowel Sounds. absent: Tenderness - Extremities Exam Extremities Exam: Full ROM, Normal Capillary Refill, Pedal Edema. absent: Calf Tenderness - Back Exam Back Exam: Full ROM. absent: CVA tenderness (L), CVA tenderness (R), paraspinal tenderness - Neurological Exam Neurological Exam: Alert, Awake, CN II-XII Intact, Oriented x3 Neuro motor strength exam: Left Upper Extremity: 5, Right Upper Extremity: 5, Left Lower Extremity: 5, Right Lower Extremity: 5 - Psychiatric Exam Psychiatric exam: Normal Affect, Normal Mood - Skin Skin Exam: Dry, Normal Color, Warm Assessment and Plan (1) Acute exacerbation of CHF (congestive heart failure) Status: Acute (2) Anemia Status: Chronic (3) COPD exacerbation Status: Acute (4) Pneumonia Status: Acute (5) HTN (hypertension) Status: Chronic (6) DM type 2 (diabetes mellitus, type 2) Status: Acute - Assessment and Plan (Free Text) Assessment: (1) Acute exacerbation of CHF (congestive heart failure), diastolic dysfunction Status: Acute cont Lasix ECHO showed EF 60% Cardio consulted (2) Anemia Status: Chronic s/p PRBC transfusion (3) COPD exacerbation, resolved Status: Acute cont Duoneb Pulm following pt (4) Pneumonia Status: Acute completed IV antibiotic treatment with Ceftriaxone (5) HTN (hypertension) Status: Chronic (6) DM type 2 (diabetes mellitus, type 2) Status: Acute cont Levemir and Glucotrol cont Metformin however caution and monitor renal function accucheck ACHS 7. Acute Kidney Injury due to diuretics on CKD stage II likely due to diuresis will decrease Lasix to 20 mg daily
--- NOTE | 2018-04-07 11:53 | CP.PCM.CON ---
History of Present Illness - History of Present Illness History of Present Illness: CC: EDEMA. HPI: I have been requested on cardiology consultation by Dr. Garcia on Mr Mercedes who is an 78 year old male with a PMH of CAD, s/p PCI, PAD, HTN, DM, COPD and obesity who is evaluated for dyspnea and lower extremity edema. He was noted to have severe anemia and was transfused 2 units of PRBCs with improvement in his s ymptoms. He denies chest pain, cough, fever or chills but continues to have lower extremity edema. he is tolerating medical therapy and PT and is eager to be discharged home. Review of Systems - Constitutional Constitutional: absent: Chills, Fever, Weakness - EENT Eyes: absent: Blurred Vision, Diplopia Ears: absent: Dizziness Nose/Mouth/Throat: absent: Nasal Congestion, Sore Throat - Cardiovascular Cardiovascular: Edema. absent: Chest Pain, Dyspnea, Palpitations - Respiratory Respiratory: Dyspnea. absent: Cough, Wheezing, Excessive Mucous Production - Gastrointestinal Gastrointestinal: absent: Abdominal Pain, Dysphagia, Nausea, Vomiting - Genitourinary Genitourinary: absent: Dysuria - Musculoskeletal Musculoskeletal: absent: Muscle Weakness, Myalgias - Integumentary Integumentary: Swelling. absent: Rash - Neurological Neurological: absent: Dizziness, Numbness, Syncope, Weakness - Psychiatric Psychiatric: absent: Anxiety - Endocrine Endocrine: absent: Fatigue, Palpitations - Hematologic/Lymphatic Hematologic: absent: Easy Bleeding, Easy Bruising Past Patient History - Past Medical History & Family History Past Medical History?: Yes - Past Social History Smoking Status: Former Smoker Chewing Tobacco Use: No Cigar Use: No Alcohol: Social Drugs: Denies Home Situation {Lives}: With Family - CARDIAC Hx Cardiac Disorders: Yes Hx Circulatory Problems: Yes Hx Congestive Heart Failure: Yes Hx Hypercholesterolemia: Yes Hx Hypertension: Yes Hx Peripheral Edema: Yes Hx Peripheral Vascular Disease: Yes - PULMONARY Hx Chronic Obstructive Pulmonary Disease (COPD): Yes Hx Pneumonia: Yes - NEUROLOGICAL Hx Neurological Disorder: No - HEENT Hx HEENT Problems: No - RENAL Hx Chronic Kidney Disease: Yes - ENDOCRINE/METABOLIC Hx Diabetes Mellitus Type 1: Yes Hx Diabetes Mellitus Type 2: Yes Hx Hypothyroidism: Yes - HEMATOLOGICAL/ONCOLOGICAL Hx Anemia: Yes Hx Human Immunodeficiency Virus (HIV): No - INTEGUMENTARY Hx Dermatological Problems: No - MUSCULOSKELETAL/RHEUMATOLOGICAL Hx Falls: Yes - GASTROINTESTINAL Hx Gastritis: Yes Other/Comment: colonic AVMs - GENITOURINARY/GYNECOLOGICAL Hx Prostate Cancer: Yes - PSYCHIATRIC Hx Psychophysiologic Disorder: No Hx Substance Use: No - SURGICAL HISTORY Hx Angiogram: Yes Hx Angioplasty: Yes Hx Coronary Stent: Yes Hx Vascular Surgery: Yes Other/Comment: prostatectomy - ANESTHESIA Hx Anesthesia: Yes Hx Anesthesia Reactions: No Hx Malignant Hyperthermia: No Meds Allergies/Adverse Reactions: Allergies Allergy/AdvReac Type Severity Reaction Status Date / Time No Known Allergies Allergy Verified 03/25/18 17:37 - Medications Medications: Current Medications Albuterol Sulfate (Albuterol 0.083% Inhal Marissa (2.5 Mg/3 Ml) Ud) 2.5 mg INH RQ4 PRN PRN Reason: Shortness of Breath Last Admin: 04/05/18 03:07 Dose: 2.5 mg Amlodipine Besylate (Norvasc) 5 mg PO DAILY [facility] Last Admin: 04/07/18 08:40 Dose: 5 mg Atorvastatin Calcium (Lipitor) 20 mg PO [facility] Last Admin: 04/06/18 21:24 Dose: 20 mg Dextrose (Dextrose 50% Inj) 0 ml IV STAT PRN; Protocol PRN Reason: Hypoglycemia Protocol Dextrose (Glutose 15) 0 gm PO ONCE PRN; Protocol PRN Reason: Hypoglycemia Protocol Docusate Sodium (Colace) 100 mg PO BID [facility] Last Admin: 04/07/18 08:38 Dose: 100 mg Folic Acid (Folic Acid) 1 mg PO DAILY [facility] Last Admin: 04/07/18 08:37 Dose: 1 mg Furosemide (Lasix) 40 mg PO DAILY [facility] Last Admin: 04/07/18 08:40 Dose: 40 mg Glipizide (Glucotrol Xl) 10 mg PO DAILY [facility] Last Admin: 04/07/18 08:40 Dose: 10 mg Glucagon (Glucagen Diagnostic Kit) 0 mg IM STAT PRN; Protocol PRN Reason: Hypoglycemia Protocol Insulin Detemir (Levemir) 34 units SC [facility] Last Admin: 04/06/18 21:25 Dose: 34 u Insulin Human Regular (Humulin R) 0 units SC [facility]; Protocol Last Admin: 04/07/18 11:38 Dose: Not Given Levothyroxine Sodium (Synthroid) 175 mcg PO DAILY@0630 [facility] Last Admin: 04/07/18 07:15 Dose: 175 mcg Metformin HCl (Glucophage) 1,000 mg PO BIDWM [facility] Last Admin: 04/07/18 08:37 Dose: 1,000 mg Zskli-8-Zojz Ethyl Esters (Lovaza) 1 gm PO BID [facility] Last Admin: 04/07/18 08:37 Dose: 1 gm Pantoprazole Sodium (Protonix Inj) 40 mg IVP DAILY [facility] Last Admin: 04/07/18 08:37 Dose: 40 mg Fluticasone/Salmeterol (Advair Diskus 250/50) 1 puff IH BID [facility] Last Admin: 04/07/18 08:37 Dose: 1 puff Thiamine HCl (Vitamin B1 Tab) 100 mg PO DAILY [facility] Last Admin: 04/07/18 08:40 Dose: 100 mg Tiotropium [place] (Spiriva) 18 mcg INH DAILY [facility] Last Admin: 04/07/18 08:37 Dose: 18 mcg Physical Exam - Constitutional Appears: Well, Non-toxic, No Acute Distress, Other - Head Exam Head Exam: ATRAUMATIC, NORMOCEPHALIC - Eye Exam Eye Exam: Normal appearance, PERRL Pupil Exam: PERRL - ENT Exam ENT Exam: Mucous Membranes Moist, Normal Exam - Neck Exam Neck exam: Positive for: Full Rom, Normal Inspection - Respiratory Exam Respiratory Exam: Clear to Auscultation Bilateral. absent: Rales, Rhonchi, Wheezes - Cardiovascular Exam Cardiovascular Exam: REGULAR RHYTHM, RRR, +S1, +S2, Systolic Murmur - GI/Abdominal Exam GI & Abdominal Exam: Soft. absent: Distended, Guarding, Tenderness - Extremities Exam Extremities exam: Positive for: full ROM, pedal edema - Back Exam Back exam: NORMAL INSPECTION - Neurological Exam Neurological exam: Alert, Oriented x3 - Psychiatric Exam Psychiatric exam: Normal Mood - Skin Skin Exam: Dry, Intact, Normal Color, Warm Results - Vital Signs Recent Vital Signs: Last Vital Signs Temp 98.4 F 04/07/18 08:26 Pulse 87 04/07/18 08:26 Resp 20 04/07/18 08:26 BP 191/68 H 04/07/18 08:40 Pulse Ox 91 L 04/07/18 08:26 - Labs Result Diagrams: 04/07/18 06:40 04/07/18 06:40 Labs: Laboratory Results - last 24 hr 04/06/18 04/07/18 04/07/18 16:08 06:40 06:40 WBC 8.5 RBC 3.40 L Hgb 9.5 L Hct 30.6 L MCV 89.9 D MCH 27.9 MCHC 31.1 L RDW 20.7 H Plt Count 190 Sodium 143 Potassium 4.6 Chloride 102 Carbon Dioxide 33 H Anion Gap 13 BUN 30 H Creatinine 1.6 H Est GFR ( Amer) 51 Est GFR (Non-Af Amer) 42 POC Glucose (mg/dL) 112 H Random Glucose 90 Calcium 8.9 Assessment & Plan - Assessment and Plan (Free Text) Assessment: Anemia Edema CAD HTN PAD DM COPD Plan: Continue present medical management PT Stable cardiac [place] for discharge - Date & Time Date: 04/07/18 Time: 18:06
--- NOTE | 2018-04-07 15:46 | RAD ---
Date of service: 04/07/2018 HISTORY: Pleural effusion COMPARISON: Portable chest 04/03/2018. TECHNIQUE: Chest PA and lateral FINDINGS: LUNGS: Trace left pleural effusion unchanged. Minimal right pleural effusion slightly diminished though with questionable loculation.. No pneumothorax bilaterally. No definite airspace disease bilaterally. PLEURA: As above. CARDIOVASCULAR: No aortic atherosclerotic calcification present. Normal cardiac size. No pulmonary vascular congestion. OSSEOUS STRUCTURES: Postop changes distal right clavicle reiterated. VISUALIZED UPPER ABDOMEN: Normal. OTHER FINDINGS: None. IMPRESSION: Trace of pleural effusion unchanged with limited loculated right pleural effusion potentially slightly smaller in the interval. No definite airspace disease bilaterally. No pulmonary vascular derangement.
[2018-04-07] MEDS: Insulin Detemir 100 Units/ml Inj SC SCH (21:58)
[2018-04-08] MEDS: Levothyroxine 175 MCG TAB PO SCH (05:37)
[2018-04-08 06:12] LABS: CALCIUM 9.1 mg/dL (8.4-10.2)
[2018-04-08] MEDS: Insulin Regular 100 units/ml SC SCH ×2 (08:10→12:00)
[2018-04-08 08:18] VITALS: PULSE 78; RESP 18; TEMP 98; O2SAT 96
[2018-04-08] MEDS: Omega-3-Acid Ethyl Esters 1 GM Cap PO SCH (09:16)
[2018-04-08] MEDS: Tiotropium 18 mcg Cap For Inhalation INH SCH (09:18)
[2018-04-08] MEDS: GlipiZIDE 10 mg SR Tab PO SCH (09:19)
[2018-04-08 09:21] VITALS: BP 156/66
--- NOTE | 2018-04-08 11:58 | CP.PCM.DIS ---
Provider - Provider Date of Admission: 03/25/18 17:52 Attending physician: Pérez Crain MD Primary care physician: Dr Sanchez Consults: 03/25/18 17:52 Case Management Referral Routine Comment: Physician Instructions: Reason For Exam: Reason for Referral: Discharge Planning 03/25/18 18:01 Pulmonology Consult Routine Comment: Consulting Provider: Skip Abdullahi Consulting Physician: Skip Abdullahi Reason for Consult: follow up 03/28/18 08:12 Hematology Oncology Consult Routine Comment: Consulting Provider: Zackary Judge Consulting Physician: Zackary Judge Reason for Consult: anemia 03/28/18 08:13 Gastroenterology Consult Routine Comment: Consulting Provider: Roberto Parmar Consulting Physician: Roberto Parmar Reason for Consult: gi bleed 04/06/18 15:37 Cardiology Consult Routine Comment: Consulting Provider: Salomón Slaughter Consulting Physician: Salomón Slaughter Reason for Consult: HTN, plueral effusion Time Spent in preparation of Discharge (in minutes): 25 Diagnosis - Discharge Diagnosis (1) Acute exacerbation of CHF (congestive heart failure) Status: Acute (2) Anemia Status: Chronic Priority: High (3) COPD exacerbation Status: Acute (4) Pneumonia Status: Acute Priority: High (5) HTN (hypertension) Status: Chronic (6) DM type 2 (diabetes mellitus, type 2) Status: Acute (7) VAIBHAV (acute kidney injury) Status: Acute Hospital Course - Lab Results Lab Results: Most Recent Lab Values WBC 8.5 K/uL (4.8-10.8) 04/07/18 06:40 RBC 3.40 Mil/uL (4.40-5.90) L 04/07/18 06:40 Hgb 9.5 g/dL (12.0-18.0) L 04/07/18 06:40 Hct 30.6 % (35.0-51.0) L 04/07/18 06:40 MCV 89.9 fl (80.0-94.0) D 04/07/18 06:40 MCH 27.9 pg (27.0-31.0) 04/07/18 06:40 MCHC 31.1 g/dL (33.0-37.0) L 04/07/18 06:40 RDW 20.7 % (11.5-14.5) H 04/07/18 06:40 Plt Count 190 K/uL (130-400) 04/07/18 06:40 MPV 9.9 fl (7.2-11.7) 04/01/18 06:05 Neut % (Auto) 70.2 % (50.0-75.0) 04/01/18 06:05 Lymph % (Auto) 16.4 % (20.0-40.0) L 04/01/18 06:05 Woodruff % (Auto) 10.3 % (0.0-10.0) H 04/01/18 06:05 Eos % (Auto) 2.2 % (0.0-4.0) 04/01/18 06:05 Baso % (Auto) 0.9 % (0.0-2.0) 04/01/18 06:05 Neut # (Auto) 6.3 K/uL (1.8-7.0) 04/01/18 06:05 Lymph # (Auto) 1.5 K/uL (1.0-4.3) 04/01/18 06:05 Woodruff # (Auto) 0.9 K/uL (0.0-0.8) H 04/01/18 06:05 Eos # (Auto) 0.2 K/uL (0.0-0.7) 04/01/18 06:05 Baso # (Auto) 0.1 K/uL (0.0-0.2) 04/01/18 06:05 pCO2 51 mm/Hg (35-45) H 04/03/18 02:47 pO2 49 mm/Hg (80-100) L 04/03/18 02:47 HCO3 28.8 mmol/L (21-28) H 04/03/18 02:47 ABG pH 7.39 (7.35-7.45) 04/03/18 02:47 ABG Total CO2 32.5 mmol/L (22-28) H 04/03/18 02:47 ABG O2 Saturation 87.5 % (95-98) L 04/03/18 02:47 ABG O2 Content 9.7 ML/dL (15-23) L 04/03/18 02:47 ABG Base Excess 5.2 mmol/L (-2.0-3.0) H 04/03/18 02:47 ABG Hemoglobin 8.1 g/dL (11.7-17.4) L 04/03/18 02:47 ABG Carboxyhemoglobin 1.5 % (0.5-1.5) 04/03/18 02:47 POC ABG HHb (Measured) 12.2 % (0.0-5.0) H 04/03/18 02:47 ABG Methemoglobin 1.1 % (0.0-3.0) 04/03/18 02:47 ABG O2 Capacity 11.1 mL/dL (16-24) L 04/03/18 02:47 Kurtis Test Yes 04/03/18 02:47 A-a O2 Difference 115.0 mm/Hg 04/03/18 02:47 Hgb O2 Saturation 85.1 % (95.0-98.0) L 04/03/18 02:47 FiO2 32.0 % 04/03/18 02:47 Sodium 142 mmol/l (132-148) 04/08/18 04:30 Potassium 4.8 MMOL/L (3.6-5.0) 04/08/18 04:30 Chloride 101 mmol/L (98-107) 04/08/18 04:30 Carbon Dioxide 33 mmol/L (22-30) H 04/08/18 04:30 Anion Gap 13 (10-20) 04/08/18 04:30 BUN 35 mg/dl (9-20) H 04/08/18 04:30 Creatinine 1.5 mg/dl (0.8-1.5) 04/08/18 04:30 Est GFR ( Amer) 54 04/08/18 04:30 Est GFR (Non-Af Amer) 45 04/08/18 04:30 POC Glucose (mg/dL) 209 mg/dL (65-110) H 04/08/18 10:42 Random Glucose 135 mg/dL (75-110) H 04/08/18 04:30 Calcium 9.1 mg/dL (8.4-10.2) 04/08/18 04:30 Iron 66 ug/dL (49-181) 04/06/18 10:02 TIBC 356 ug/dL (250-450) 04/06/18 10:02 % Saturation 19 % (20-55) L 04/06/18 10:02 Ferritin 191.0 ng/Ml (17.9-464) 04/06/18 10:02 Stool Occult Blood Negative (NEGATIVE) 03/30/18 09:21 Blood Type O POSITIVE 04/04/18 11:00 Antibody Screen Negative 04/04/18 11:00 Crossmatch See Detail 04/04/18 11:00 BBK History Checked Patient has bt 04/04/18 11:00 - Hospital Course Hospital Course: 78 y/o gent with hx of HTN, DM, COPd, initially admitted to the Acute Medical unit with a dx of Pneumonia, was transferred to TCU for continuation of IV antibiotics. Developed CHF exacerbation and COPD exacerbation. Cardio and Pulm consulted. Pt was started on IV Lasix, Duoneb treatments. His symptoms impproved and he completed IV antibiotics . (1) Acute exacerbation of CHF (congestive heart failure), diastolic dysfunction with Pleural Effusion Status: Acute now improved received IV Lasix , cont PO Lasix ECHO showed EF 60% Cardio consulted- Dr Slaughter rpt CXR showed improvement (2) Anemia Status: Chronic s/p PRBC transfusion Hematological work up as outpt ff up also with Dr Parmar (3) COPD exacerbation, resolved Status: Acute cont Duoneb and Spiriva Pulm consulted- Dr Abdullahi (4) Pneumonia likely bacterial Status: Acute completed IV antibiotic treatment with Ceftriaxone and Azithro (5) HTN (hypertension) Status: Chronic cont Lasix , Norvasc (6) DM type 2 (diabetes mellitus, type 2) Status: Acute cont Levemir and Glucotrol cont Metformin however caution and monitor renal function, ff up with Dr Sanchez next wk accucheck ACHS 7. Acute Kidney Injury due to diuretics on CKD stage II likely due to diuresis will decrease Lasix to 20 mg daily 8. Hypothyroidism - cont Levothyroxine Discharge Exam - Head Exam Head Exam: ATRAUMATIC, NORMAL INSPECTION, NORMOCEPHALIC - Eye Exam Eye Exam: EOMI, Normal appearance Pupil Exam: NORMAL ACCOMODATION - ENT Exam ENT Exam: Mucous Membranes Moist, Normal External Ear Exam - Neck Exam Neck exam: Full Rom - Respiratory Exam Respiratory Exam: Rales, NORMAL BREATHING PATTERN. absent: Respiratory Distress - Cardiovascular Exam Cardiovascular Exam: REGULAR RHYTHM, +S1, +S2 - GI/Abdominal Exam GI & Abdominal Exam: Normal Bowel Sounds, Soft. absent: Tenderness - Extremities Exam Extremities exam: normal capillary refill, pedal edema, pedal pulses present - Back Exam Back exam: FULL ROM. absent: CVA tenderness (L), CVA tenderness (R) - Neurological Exam Neurological exam: Alert, CN II-XII Intact, Oriented x3, Reflexes Normal - Psychiatric Exam Psychiatric exam: Normal Affect, Normal Mood - Skin Skin Exam: Dry, Normal Color, Warm Discharge Plan - Discharge Medications Prescriptions: Furosemide [Lasix] 20 mg PO DAILY #30 tablet Tiotropium [Spiriva] 18 mcg INH DAILY #30 cap - Follow Up Plan Condition: GOOD Disposition: HOME/ ROUTINE Instructions: Chronic Obstructive Pulmonary Disease (COPD), Including Emphysema Additional Instructions: Put Oxygen at 2L/min at all times, call Dr. Crain if with shortness of breath and if in need of more Oxygen. If very short of breath, seek ER. Follow up appointment with Dr. Crain. Elevate legs as much as possible. Rest in between activities. Clinical Quality Measures - CQM - Heart Failure Ejection Fraction: 40 % or Greater Left Ventricular Function to be assessed after discharge: Yes Contraindication/Reason for not providing: renal failure Contraindication/Reason for not providing: COPD Contraindication/Reason for not providing: VAIBHAV Contraindication/Reason for not providing: N/A
--- NOTE | 2018-04-08 14:59 | CP.PCM.PN ---
Subjective - Date & Time of Evaluation Date of Evaluation: 04/08/18 Time of Evaluation: 14:57 - Subjective Subjective: Appears comfortable seated on the edge of the bed. Continues to have dependent edema of both lower extremities although this has decreased somewhat. Follow-up chest x-ray shows residual small bilateral pleural effusions. No parenchymal consolidations. Plan is for discharge to home today. We'll substitute Anoro Ellipta, 1 inhalation [address] daily in [address] of Advair and Spiriva. Instructed to maintain low-sodium diet. Objective - Vital Signs/Intake and Output Vital Signs (last 24 hours): Temp Pulse Resp BP Pulse Ox 98.0 F 78 18 156/66 H 96 04/08/18 08:17 04/08/18 09:16 04/08/18 08:17 04/08/18 09:19 04/08/18 08:17 - Medications Medications: Current Medications Albuterol Sulfate (Albuterol 0.083% Inhal Marissa (2.5 Mg/3 Ml) Ud) 2.5 mg INH RQ4 PRN PRN Reason: Shortness of Breath Last Admin: 04/05/18 03:07 Dose: 2.5 mg Amlodipine Besylate (Norvasc) 5 mg PO DAILY [facility] Last Admin: 04/08/18 09:16 Dose: 5 mg Atorvastatin Calcium (Lipitor) 20 mg PO HS [facility] Last Admin: 04/07/18 21:58 Dose: 20 mg Dextrose (Dextrose 50% Inj) 0 ml IV STAT PRN; Protocol PRN Reason: Hypoglycemia Protocol Dextrose (Glutose 15) 0 gm PO ONCE PRN; Protocol PRN Reason: Hypoglycemia Protocol Docusate Sodium (Colace) 100 mg PO BID [facility] Last Admin: 04/08/18 09:17 Dose: 100 mg Folic Acid (Folic Acid) 1 mg PO DAILY [facility] Last Admin: 04/08/18 09:17 Dose: 1 mg Furosemide (Lasix) 40 mg PO DAILY [facility] Last Admin: 04/08/18 09:19 Dose: 40 mg Glipizide (Glucotrol Xl) 10 mg PO DAILY [facility] Last Admin: 04/08/18 09:19 Dose: 10 mg Glucagon (Glucagen Diagnostic Kit) 0 mg IM STAT PRN; Protocol PRN Reason: Hypoglycemia Protocol Insulin Detemir (Levemir) 34 units SC [facility] Last Admin: 04/07/18 21:58 Dose: 34 u Insulin Human Regular (Humulin R) 0 units SC ACHS [facility]; Protocol Last Admin: 04/08/18 12:00 Dose: 3 u Levothyroxine Sodium (Synthroid) 175 mcg PO DAILY@0630 [facility] Last Admin: 04/08/18 05:37 Dose: 175 mcg Metformin HCl (Glucophage) 1,000 mg PO BIDWM [facility] Last Admin: 04/08/18 08:00 Dose: 1,000 mg [id number] Ethyl Esters (Lovaza) 1 gm PO BID [facility] Last Admin: 04/08/18 09:16 Dose: 1 gm Pantoprazole Sodium (Protonix Inj) 40 mg IVP DAILY [facility] Last Admin: 04/08/18 09:19 Dose: 40 mg Fluticasone/Salmeterol (Advair Diskus 250/50) 1 puff IH BID [facility] Last Admin: 04/07/18 16:42 Dose: 1 puff Thiamine HCl (Vitamin B1 Tab) 100 mg PO DAILY [facility] Last Admin: 04/08/18 09:18 Dose: 100 mg Tiotropium [place] (Spiriva) 18 mcg INH DAILY [facility] Last Admin: 04/08/18 09:18 Dose: 18 mcg - Labs Labs: 04/07/18 06:40 04/08/18 04:30 Assessment and Plan (1) COPD with acute exacerbation Status: Resolved (2) Pneumonia Status: Acute (3) Anemia Status: Chronic
== END 2018-04-08 15:00 | DRG 291 ==
LOC: H.TCU 17:52
PROVIDERS: ADMIT Internal Medicine; ATTEND Internal Medicine
PROC: F08Z4FZ Home Management Treatment using Assistive, Adaptive, Supportive or Protective Equipment (ICD-10-PCS; 2018-03-25)
PROC: F07M6FZ Therapeutic Exercise Treatment of Musculoskeletal System - Whole Body using Assistive, Adaptive, Supportive or Protective Equipment (ICD-10-PCS; 2018-03-25)
PROC: 3E0F7GC Introduction of Other Therapeutic Substance into Respiratory Tract, Via Natural or Artificial Opening (ICD-10-PCS; 2018-03-26)
PROC: 30233N1 Transfusion of Nonautologous Red Blood Cells into Peripheral Vein, Percutaneous Approach (ICD-10-PCS; principal; 2018-04-05)
DX: I13.0 Hypertensive heart and chronic kidney disease with heart failure and stage 1 through stage 4 chronic kidney disease, or unspecified chronic kidney disease (principal); J15.9 Unspecified bacterial pneumonia; I50.33 Acute on chronic diastolic (congestive) heart failure; D62 Acute posthemorrhagic anemia; J44.0 Chronic obstructive pulmonary disease with (acute) lower respiratory infection; J44.1 Chronic obstructive pulmonary disease with (acute) exacerbation; N17.9 Acute kidney failure, unspecified; D50.9 Iron deficiency anemia, unspecified; E03.9 Hypothyroidism, unspecified; E10.22 Type 1 diabetes mellitus with diabetic chronic kidney disease; E10.51 Type 1 diabetes mellitus with diabetic peripheral angiopathy without gangrene; E10.65 Type 1 diabetes mellitus with hyperglycemia; E66.9 Obesity, unspecified; E78.00 Pure hypercholesterolemia, unspecified; E86.0 Dehydration; I25.10 Atherosclerotic heart disease of native coronary artery without angina pectoris; I43 Cardiomyopathy in diseases classified elsewhere; N18.2 Chronic kidney disease, stage 2 (mild); R09.02 Hypoxemia; T50.2X5D Adverse effect of carbonic-anhydrase inhibitors, benzothiadiazides and other diuretics, subsequent encounter; Z79.4 Long term (current) use of insulin; Z85.46 Personal history of malignant neoplasm of prostate; Z87.01 Personal history of pneumonia (recurrent); Z87.891 Personal history of nicotine dependence; Z95.1 Presence of aortocoronary bypass graft; Z95.5 Presence of coronary angioplasty implant and graft; K29.70 Gastritis, unspecified, without bleeding; K55.20 Angiodysplasia of colon without hemorrhage